=== PATIENT | female | born 1945 | race African-American/Black ===

== ENCOUNTER 2022-06-05 17:26 | Inpatient (IN) | payer OTHER ==
[2022-06-05] MEDS ORDERED: ALBUTEROL SO4 2.5/IPRATROPIUM 0.5 INH SOL 3 ML VIAL.NEB. NEB ONE (18:00)
[2022-06-05] MEDS ORDERED: DEXAMETHASONE SOD PHOSPHATE 10 MG/1 ML VIAL ONE (18:01)
[2022-06-05] MEDS ORDERED: NITROGLYCERIN 50MG/D5W 250ML 50 MG/250 ML ML IVPB SCH (19:00)
[2022-06-05 19:24] LABS: BASO % 0.9 % (0-2.0); EOS % 0.2 % (0-4.5); HEMATOCRIT 38.7 % (32.4-45.2); HEMOGLOBIN 12.3 GM/dL (10.7-15.3); LYMPH % 7.3 % (8-40); MCH 25.2 pg (25.7-33.7); MCHC 31.8 g/dl (32.0-36.0); MEAN CELL VOLUME 79.2 fl (80-96); MEAN PLT VOLUME 7.5 fl (7.5-11.1); NEUT % 89.6 % (42.8-82.8); PLATELET COUNT 298 10^3/uL (134-434); RBC 4.89 M/mm3 (3.60-5.2); WHITE BLOOD COUNT 6.5 K/mm3 (4.0-10.0)
[2022-06-05] MEDS ORDERED: NITROGLYCERIN 25MG/D5W 250ML 25 MG/250 ML ML IVPB ONE (19:27)
[2022-06-05 19:30] LABS: BLOOD UREA NITROGEN 35.8 mg/dL (7-18); CALCIUM 8.9 mg/dL (8.5-10.1); MAGNESIUM 2.5 mg/dL (1.8-2.4)
[2022-06-05 19:33] LABS: CREATININE 0.9 mg/dL (0.55-1.3)
[2022-06-05 19:35] LABS: BILIRUBIN,TOTAL 0.7 mg/dL (0.2-1); TOT PROT 6.1 g/dl (6.4-8.2)
[2022-06-05 19:59] LABS: N-TERMINAL BNP 38833.7 pg/ml (5-450)
[2022-06-05] MEDS ORDERED: FUROSEMIDE 40 MG/4 ML INJECTABLE VIAL IVPUSH ONE (20:17)
[2022-06-05] MEDS ORDERED: FUROSEMIDE 40 MG/4 ML INJECTABLE VIAL ONE (20:30)
[2022-06-05] MEDS ORDERED: NITROGLYCERIN 2% OINTMENT - 1GM PACKET TD ONE ×3 (21:35→21:40)
[2022-06-05] MEDS ORDERED: LABETALOL HCL 5 MG/1 ML (100MG/20 ML VIAL) IVPUSH ONE (21:36)
[2022-06-05] MEDS ORDERED: ASPIRIN 81 MG CHEWABLE TABLETS PO ONE (23:51)
[2022-06-06] MEDS ORDERED: ASPIRIN 81 MG CHEWABLE TABLETS ONE (00:12)
[2022-06-06] MEDS ORDERED: ENALAPRILAT DIHYDRATE 1.25 MG/1 ML VIAL IVPB ONE ×2 (00:53→03:00)
[2022-06-06] MEDS ORDERED: ENALAPRILAT DIHYDRATE 2.5 MG/2 ML VIAL IVPB ONE (01:47)
[2022-06-06] MEDS ORDERED: FUROSEMIDE 40 MG/4 ML INJECTABLE VIAL ONE ×2 (06:41→14:28)
[2022-06-06] MEDS: FUROSEMIDE 40 MG/4 ML INJECTABLE VIAL IVPUSH SCH ×2 (06:51→14:40)
[2022-06-06] MEDS ORDERED: NITROGLYCERIN 2% OINTMENT - 1GM PACKET TD ONE ×3 (07:08→13:15)
[2022-06-06] MEDS: NITROGLYCERIN 2% OINTMENT - 1GM PACKET TD SCH ×2 (07:13→13:26)
[2022-06-06 07:23] LABS: BASO % 0.3 % (0-2.0); HEMATOCRIT 35.9 % (32.4-45.2); HEMOGLOBIN 11.4 GM/dL (10.7-15.3); LYMPH % 7.7 % (8-40); MCH 25.1 pg (25.7-33.7); MCHC 31.9 g/dl (32.0-36.0); MEAN CELL VOLUME 78.9 fl (80-96); MEAN PLT VOLUME 7.8 fl (7.5-11.1); MONO % 4.2 % (3.8-10.2); NEUT % 87.8 % (42.8-82.8); PLATELET COUNT 265 10^3/uL (134-434); RBC 4.55 M/mm3 (3.60-5.2); RDW 16.1 % (11.6-15.6); WHITE BLOOD COUNT 4.8 K/mm3 (4.0-10.0)
[2022-06-06 07:40] LABS: CHLORIDE 109 mmol/L (98-107); SODIUM 144 mmol/L (136-145)
[2022-06-06 07:47] LABS: ALBUMIN 2.8 g/dl (3.4-5.0); ANION GAP 11 MMOL/L (8-16); BLOOD UREA NITROGEN 39.2 mg/dL (7-18); CALCIUM 8.8 mg/dL (8.5-10.1); CO2 24 mmol/L (21-32); GLUCOSE,RANDOM 136 mg/dL (74-106); MAGNESIUM 2.3 mg/dL (1.8-2.4)
[2022-06-06 07:49] LABS: TRIGLYCERIDES 68 mg/dL (0-150)
[2022-06-06 07:50] LABS: BILIRUBIN,TOTAL 0.6 mg/dL (0.2-1); LDL CHOLESTEROL (ONLY SJRH) 78 mg/dL (5-100); TOT PROT 5.7 g/dl (6.4-8.2)
[2022-06-06 07:51] LABS: CHOLESTEROL 144 mg/dL (50-200); CREATININE 0.8 mg/dL (0.55-1.3); HDL CHOLESTEROL 53 mg/dL (40-60); PHOSPHOROUS 4.3 mg/dL (2.5-4.9); SGOT/AST 15 U/L (15-37); SGPT/ALT 10 U/L (13-61)
[2022-06-06 07:54] LABS: ALK PHOS 66 U/L (45-117)
[2022-06-06 08:27] LABS: EPI CELLS >36 /uL (0-25.1); HYALINE CASTS 158 /uL (0-3.1); URINE APPEARANCE CLEAR; URINE BILIRUBIN NEGATIVE (NEGATIVE); URINE COLOR ORANGE; URINE GLUCOSE (UA) NEGATIVE (NEGATIVE); URINE KETONE TRACE (NEGATIVE); URINE LEUK ESTERASE NEGATIVE (NEGATIVE); URINE NITRITE NEGATIVE (NEGATIVE); URINE PROTEIN 3+ (NEGATIVE); URINE UROBILINOGEN 0.2 mg/dL (0.2-1.0); URINE WBC 55 /uL (0-25.8)
[2022-06-06] MEDS: ENALAPRILAT DIHYDRATE 1.25 MG/1 ML VIAL IVPB SCH ×2 (09:53→17:16)
[2022-06-06] MEDS ORDERED: ENOXAPARIN NA (PORCINE) 40 MG/0.4 ML DISP.SYRIN SQ ONE (09:54)
[2022-06-06] MEDS: ENOXAPARIN NA (PORCINE) 40 MG/0.4 ML DISP.SYRIN SQ SCH (09:57)
[2022-06-06 10:26] LABS: URINE BACTERIA 0.9 /uL (0-1359); URINE RBC 406.2 /uL (0-23.9)
[2022-06-06] MEDS: ASPIRIN COATED 81 MG TABLET.EC PO SCH (11:30)
[2022-06-06] MEDS ORDERED: NITROGLYCERIN 25MG/D5W 250ML 25 MG/250 ML ML IVPB SCH ×2 (12:30→14:37)
[2022-06-06] MEDS ORDERED: NITROGLYCERIN 25MG/D5W 250ML 25 MG/250 ML ML IVPB ONE (14:28)
[2022-06-06 16:16] VITALS: BMI 19.0
[2022-06-06] MEDS: CARVEDILOL 6.25 MG TABLET (FP) PO SCH ×2 (17:14→22:43)
[2022-06-06] MEDS: SPIRONOLACTONE 25 MG TABLET PO SCH (17:14)
[2022-06-06] MEDS ORDERED: NITROGLYCERIN 2% OINTMENT - 1GM PACKET TD SCH (18:00)
[2022-06-06] MEDS: FUROSEMIDE INJECTION 100 MG in DEXTROSE 5%-WATER - 40 ML IVPB SCH (18:17)
[2022-06-06] MEDS: hydrALAZINE HCL 25 MG TABLET (FP) PO SCH (22:43)
[2022-06-07] MEDS: hydrALAZINE HCL 25 MG TABLET (FP) PO SCH ×2 (06:50→14:11)
[2022-06-07 08:26] LABS: BASO % 0.3 % (0-2.0); EOS % 0.2 % (0-4.5); HEMATOCRIT 31.2 % (32.4-45.2); LYMPH % 9.4 % (8-40); MCH 25.2 pg (25.7-33.7); MCHC 32.1 g/dl (32.0-36.0); MEAN CELL VOLUME 78.5 fl (80-96); NEUT % 84.1 % (42.8-82.8); PLATELET COUNT 246 10^3/uL (134-434); RBC 3.98 M/mm3 (3.60-5.2); RDW 15.6 % (11.6-15.6); WHITE BLOOD COUNT 6.1 K/mm3 (4.0-10.0)
[2022-06-07 10:29] LABS: CALCIUM 8.2 mg/dL (8.5-10.1)
[2022-06-07] MEDS: SPIRONOLACTONE 25 MG TABLET PO SCH (10:29)
[2022-06-07] MEDS: CARVEDILOL 6.25 MG TABLET (FP) PO SCH ×2 (10:29→21:53)
[2022-06-07] MEDS: ENOXAPARIN NA (PORCINE) 40 MG/0.4 ML DISP.SYRIN SQ SCH (10:29)
[2022-06-07] MEDS: ISOSORBIDE MONONITRATE 30 MG TAB.SR.24H (FP) PO SCH (10:29)
[2022-06-07] MEDS: ASPIRIN COATED 81 MG TABLET.EC PO SCH (10:29)
[2022-06-07 10:30] LABS: ALBUMIN 2.5 g/dl (3.4-5.0); BLOOD UREA NITROGEN 37.4 mg/dL (7-18); MAGNESIUM 2.1 mg/dL (1.8-2.4)
[2022-06-07 10:32] LABS: TOT PROT 5.1 g/dl (6.4-8.2)
[2022-06-07 10:33] LABS: CREATININE 0.8 mg/dL (0.55-1.3)
[2022-06-07 10:36] LABS: BILIRUBIN,TOTAL 0.6 mg/dL (0.2-1)
[2022-06-07] MEDS: FUROSEMIDE INJECTION 100 MG in DEXTROSE 5%-WATER - 40 ML IVPB SCH (15:04)
[2022-06-07] MEDS: SACUBITRIL/VALSARTAN 24 MG-26 MG TABLET PO SCH (21:53)
[2022-06-07] MEDS: hydrALAZINE HCL 10 MG TABLET PO SCH (21:53)
[2022-06-08 00:29] LABS: EPI CELLS >36 /uL (0-25.1); HYALINE CASTS 52 /uL (0-3.1); URINE APPEARANCE TURBID; URINE BACTERIA 12 /uL (0-1359); URINE BILIRUBIN NEGATIVE (NEGATIVE); URINE COLOR YELLOW; URINE GLUCOSE (UA) NEGATIVE (NEGATIVE); URINE KETONE NEGATIVE (NEGATIVE); URINE LEUK ESTERASE 2+ (NEGATIVE); URINE NITRITE NEGATIVE (NEGATIVE); URINE PROTEIN TRACE (NEGATIVE); URINE WBC 115 /uL (0-25.8)
[2022-06-08] MEDS ORDERED: SIMETHICONE 80 MG TAB.CHEW (FP) PO PRN (03:32)
[2022-06-08] MEDS: hydrALAZINE HCL 10 MG TABLET PO SCH ×3 (05:48→21:28)
[2022-06-08] MEDS: FUROSEMIDE INJECTION 100 MG in DEXTROSE 5%-WATER - 40 ML IVPB SCH ×2 (06:20→18:43)
[2022-06-08 08:01] LABS: BASO % 0.3 % (0-2.0); EOS % 0.5 % (0-4.5); HEMATOCRIT 32.7 % (32.4-45.2); HEMOGLOBIN 10.7 GM/dL (10.7-15.3); LYMPH % 7.5 % (8-40); MCH 25.5 pg (25.7-33.7); MCHC 32.7 g/dl (32.0-36.0); MEAN CELL VOLUME 78.1 fl (80-96); MEAN PLT VOLUME 7.6 fl (7.5-11.1); MONO % 6.2 % (3.8-10.2); NEUT % 85.5 % (42.8-82.8); PLATELET COUNT 258 10^3/uL (134-434); RBC 4.19 M/mm3 (3.60-5.2); WHITE BLOOD COUNT 6.6 K/mm3 (4.0-10.0)
[2022-06-08 08:27] LABS: URINE RBC 83.8 /uL (0-23.9)
[2022-06-08 08:28] LABS: URINE CRYSTALS NEGATIVE /hpf
[2022-06-08 08:56] LABS: BLOOD UREA NITROGEN 38.4 mg/dL (7-18); CALCIUM 8.3 mg/dL (8.5-10.1)
[2022-06-08 08:58] LABS: ALBUMIN 2.6 g/dl (3.4-5.0)
[2022-06-08 09:00] LABS: BILIRUBIN,TOTAL 0.5 mg/dL (0.2-1); CREATININE 0.9 mg/dL (0.55-1.3); PHOSPHOROUS 3.7 mg/dL (2.5-4.9); TOT PROT 5.3 g/dl (6.4-8.2)
[2022-06-08] MEDS: SACUBITRIL/VALSARTAN 24 MG-26 MG TABLET PO SCH ×2 (09:19→21:28)
[2022-06-08] MEDS: CARVEDILOL 6.25 MG TABLET (FP) PO SCH ×2 (09:19→21:28)
[2022-06-08] MEDS: ISOSORBIDE MONONITRATE 30 MG TAB.SR.24H (FP) PO SCH (09:19)
[2022-06-08] MEDS: SPIRONOLACTONE 25 MG TABLET PO SCH (09:19)
[2022-06-08] MEDS: ASPIRIN COATED 81 MG TABLET.EC PO SCH (09:19)
[2022-06-08] MEDS: ENOXAPARIN NA (PORCINE) 40 MG/0.4 ML DISP.SYRIN SQ SCH (09:22)
[2022-06-09] MEDS: hydrALAZINE HCL 10 MG TABLET PO SCH ×3 (05:39→22:27)
[2022-06-09 07:09] LABS: BASO % 0.4 % (0-2.0); EOS % 0.5 % (0-4.5); HEMATOCRIT 33.6 % (32.4-45.2); HEMOGLOBIN 10.8 GM/dL (10.7-15.3); LYMPH % 11.4 % (8-40); MCH 25.2 pg (25.7-33.7); MCHC 32.2 g/dl (32.0-36.0); MEAN CELL VOLUME 78.3 fl (80-96); MEAN PLT VOLUME 7.6 fl (7.5-11.1); MONO % 7.9 % (3.8-10.2); NEUT % 79.8 % (42.8-82.8); PLATELET COUNT 251 10^3/uL (134-434); RBC 4.29 M/mm3 (3.60-5.2); RDW 15.8 % (11.6-15.6); WHITE BLOOD COUNT 6.1 K/mm3 (4.0-10.0)
[2022-06-09 07:38] LABS: ALBUMIN 2.3 g/dl (3.4-5.0); BLOOD UREA NITROGEN 34.2 mg/dL (7-18)
[2022-06-09 07:40] LABS: CALCIUM 7.7 mg/dL (8.5-10.1); CREATININE 0.9 mg/dL (0.55-1.3); MAGNESIUM 1.7 mg/dL (1.8-2.4); PHOSPHOROUS 3.4 mg/dL (2.5-4.9)
[2022-06-09 07:42] LABS: BILIRUBIN,TOTAL 0.5 mg/dL (0.2-1); TOT PROT 5.1 g/dl (6.4-8.2)
[2022-06-09] MEDS: FUROSEMIDE INJECTION 100 MG in DEXTROSE 5%-WATER - 40 ML IVPB SCH ×2 (07:57→18:28)
[2022-06-09] MEDS: ASPIRIN COATED 81 MG TABLET.EC PO SCH (09:44)
[2022-06-09] MEDS: SACUBITRIL/VALSARTAN 24 MG-26 MG TABLET PO SCH ×2 (09:44→22:26)
[2022-06-09] MEDS: ISOSORBIDE MONONITRATE 30 MG TAB.SR.24H (FP) PO SCH (09:44)
[2022-06-09] MEDS: SPIRONOLACTONE 25 MG TABLET PO SCH (09:44)
[2022-06-09] MEDS: CARVEDILOL 6.25 MG TABLET (FP) PO SCH ×2 (09:44→22:37)
[2022-06-09] MEDS: ENOXAPARIN NA (PORCINE) 40 MG/0.4 ML DISP.SYRIN SQ SCH (09:44)
[2022-06-09] MEDS ORDERED: MAGNESIUM 2GM/50ML STERILE WATER IVPB IVPB ONE (10:23)
[2022-06-09] MEDS: POTASSIUM CHLORIDE ORAL LIQUID 20 MEQ/15 ML PO SCH ×2 (13:40→22:29)
[2022-06-10] MEDS: hydrALAZINE HCL 10 MG TABLET PO SCH ×3 (07:18→22:03)
[2022-06-10] MEDS: FUROSEMIDE INJECTION 100 MG in DEXTROSE 5%-WATER - 40 ML IVPB SCH ×2 (08:45→21:57)
[2022-06-10] MEDS: SACUBITRIL/VALSARTAN 24 MG-26 MG TABLET PO SCH ×2 (09:34→21:56)
[2022-06-10] MEDS: SPIRONOLACTONE 25 MG TABLET PO SCH (09:34)
[2022-06-10] MEDS: CARVEDILOL 6.25 MG TABLET (FP) PO SCH (09:34)
[2022-06-10] MEDS: ISOSORBIDE MONONITRATE 30 MG TAB.SR.24H (FP) PO SCH (09:34)
[2022-06-10] MEDS: ASPIRIN COATED 81 MG TABLET.EC PO SCH (09:34)
[2022-06-10] MEDS: ENOXAPARIN NA (PORCINE) 40 MG/0.4 ML DISP.SYRIN SQ SCH (09:36)
[2022-06-10] MEDS: CARVEDILOL 3.125 MG TABLET (FP) PO SCH ×2 (09:53→21:56)
[2022-06-10 10:25] LABS: BASO % 0.4 % (0-2.0); EOS % 2.3 % (0-4.5); HEMATOCRIT 34.8 % (32.4-45.2); HEMOGLOBIN 10.9 GM/dL (10.7-15.3); LYMPH % 10.1 % (8-40); MCH 24.8 pg (25.7-33.7); MCHC 31.4 g/dl (32.0-36.0); MEAN PLT VOLUME 8.3 fl (7.5-11.1); MONO % 6.1 % (3.8-10.2); NEUT % 81.1 % (42.8-82.8); PLATELET COUNT 255 10^3/uL (134-434); RDW 16.3 % (11.6-15.6); WHITE BLOOD COUNT 5.6 K/mm3 (4.0-10.0)
[2022-06-10 10:59] LABS: CALCIUM 7.5 mg/dL (8.5-10.1)
[2022-06-10 11:00] LABS: ALBUMIN 2.4 g/dl (3.4-5.0)
[2022-06-10 11:03] LABS: PHOSPHOROUS 2.9 mg/dL (2.5-4.9)
[2022-06-10] MEDS: INSULIN SLIDING SCALE (NOVOLOG) 1 VIAL SQ SCH ×2 (11:03→17:02)
[2022-06-10 11:04] LABS: BILIRUBIN,TOTAL 0.3 mg/dL (0.2-1); TOT PROT 5.1 g/dl (6.4-8.2)
[2022-06-11] MEDS: FUROSEMIDE INJECTION 100 MG in DEXTROSE 5%-WATER - 40 ML IVPB SCH ×2 (06:41→16:46)
[2022-06-11] MEDS: hydrALAZINE HCL 10 MG TABLET PO SCH ×3 (06:42→21:52)
[2022-06-11] MEDS: INSULIN SLIDING SCALE (NOVOLOG) 1 VIAL SQ SCH ×5 (06:47→21:54)
[2022-06-11 08:52] LABS: BASO % 0.4 % (0-2.0); HEMATOCRIT 34.4 % (32.4-45.2); MCHC 31.9 g/dl (32.0-36.0); MEAN CELL VOLUME 78.4 fl (80-96); MEAN PLT VOLUME 7.8 fl (7.5-11.1); MONO % 6.5 % (3.8-10.2); NEUT % 79.1 % (42.8-82.8); PLATELET COUNT 270 10^3/uL (134-434); RBC 4.39 M/mm3 (3.60-5.2); RDW 15.8 % (11.6-15.6); WHITE BLOOD COUNT 5.8 K/mm3 (4.0-10.0)
[2022-06-11 09:14] LABS: CALCIUM 7.6 mg/dL (8.5-10.1)
[2022-06-11 09:15] LABS: ALBUMIN 2.3 g/dl (3.4-5.0); BLOOD UREA NITROGEN 33.6 mg/dL (7-18); MAGNESIUM 1.8 mg/dL (1.8-2.4)
[2022-06-11 09:18] LABS: PHOSPHOROUS 2.5 mg/dL (2.5-4.9)
[2022-06-11 09:19] LABS: BILIRUBIN,TOTAL 0.4 mg/dL (0.2-1); TOT PROT 5.1 g/dl (6.4-8.2)
[2022-06-11] MEDS: ISOSORBIDE MONONITRATE 30 MG TAB.SR.24H (FP) PO SCH (09:57)
[2022-06-11] MEDS: SACUBITRIL/VALSARTAN 24 MG-26 MG TABLET PO SCH ×2 (09:57→21:53)
[2022-06-11] MEDS: CARVEDILOL 3.125 MG TABLET (FP) PO SCH ×2 (09:57→21:52)
[2022-06-11] MEDS: SPIRONOLACTONE 25 MG TABLET PO SCH (09:57)
[2022-06-11] MEDS: ASPIRIN COATED 81 MG TABLET.EC PO SCH (09:57)
[2022-06-11] MEDS: ENOXAPARIN NA (PORCINE) 40 MG/0.4 ML DISP.SYRIN SQ SCH (09:57)
[2022-06-11] MEDS ORDERED: MAGNESIUM OXIDE 400 MG TABLET (FP) PO ONE ×2 (19:15→22:45)
[2022-06-11 19:47] LABS: URIC ACID 8.1 mg/dL (2.6-7.2)
[2022-06-11] MEDS: NAPH,MB-DB/K PH,MBDB POWDER PACKET PO SCH ×2 (21:48→23:06)
[2022-06-12] MEDS: FUROSEMIDE INJECTION 100 MG in DEXTROSE 5%-WATER - 40 ML IVPB SCH (03:47)
[2022-06-12] MEDS: hydrALAZINE HCL 10 MG TABLET PO SCH ×3 (06:08→21:33)
[2022-06-12] MEDS: INSULIN SLIDING SCALE (NOVOLOG) 1 VIAL SQ SCH ×3 (06:08→17:00)
[2022-06-12 08:23] LABS: BASO % 0.4 % (0-2.0); EOS % 3.1 % (0-4.5); LYMPH % 11.4 % (8-40); MCH 25.2 pg (25.7-33.7); MCHC 32.3 g/dl (32.0-36.0); MEAN CELL VOLUME 78.1 fl (80-96); MEAN PLT VOLUME 7.6 fl (7.5-11.1); MONO % 7.7 % (3.8-10.2); NEUT % 77.4 % (42.8-82.8); PLATELET COUNT 283 10^3/uL (134-434); RBC 4.36 M/mm3 (3.60-5.2); RDW 15.7 % (11.6-15.6); WHITE BLOOD COUNT 5.6 K/mm3 (4.0-10.0)
[2022-06-12 08:48] LABS: CALCIUM 7.9 mg/dL (8.5-10.1)
[2022-06-12 08:49] LABS: ALBUMIN 2.4 g/dl (3.4-5.0); BLOOD UREA NITROGEN 34.5 mg/dL (7-18); MAGNESIUM 1.9 mg/dL (1.8-2.4)
[2022-06-12 08:52] LABS: CREATININE 1.1 mg/dL (0.55-1.3); PHOSPHOROUS 2.3 mg/dL (2.5-4.9)
[2022-06-12 08:53] LABS: BILIRUBIN,TOTAL 0.3 mg/dL (0.2-1); TOT PROT 5.2 g/dl (6.4-8.2)
[2022-06-12 09:33] LABS: EPI CELLS 16 /uL (0-25.1); HYALINE CASTS 2 /uL (0-3.1); URINE APPEARANCE CLEAR; URINE BACTERIA 31 /uL (0-1359); URINE BILIRUBIN NEGATIVE (NEGATIVE); URINE COLOR YELLOW; URINE GLUCOSE (UA) NEGATIVE (NEGATIVE); URINE KETONE NEGATIVE (NEGATIVE); URINE LEUK ESTERASE 2+ (NEGATIVE); URINE NITRITE NEGATIVE (NEGATIVE); URINE PROTEIN NEGATIVE (NEGATIVE); URINE RBC 170 /uL (0-23.9); URINE WBC 41 /uL (0-25.8)
[2022-06-12] MEDS: SPIRONOLACTONE 25 MG TABLET PO SCH (11:14)
[2022-06-12] MEDS: SACUBITRIL/VALSARTAN 24 MG-26 MG TABLET PO SCH ×2 (11:14→21:33)
[2022-06-12] MEDS: CARVEDILOL 3.125 MG TABLET (FP) PO SCH ×2 (11:14→21:32)
[2022-06-12] MEDS: ENOXAPARIN NA (PORCINE) 40 MG/0.4 ML DISP.SYRIN SQ SCH (11:14)
[2022-06-12] MEDS: ISOSORBIDE MONONITRATE 30 MG TAB.SR.24H (FP) PO SCH (11:15)
[2022-06-12] MEDS: ASPIRIN COATED 81 MG TABLET.EC PO SCH (11:15)
[2022-06-12] MEDS ORDERED: FUROSEMIDE 40 MG TABLET (FP) PO SCH (16:00)
[2022-06-12 17:51] LABS: URIC ACID 8.1 mg/dL (2.6-7.2)
[2022-06-12] MEDS ORDERED: NAPH,MB-DB/K PH,MBDB POWDER PACKET PO ONE (17:54)
[2022-06-12] MEDS ORDERED: cefTRIAXone SODIUM 1 GM VIAL ONE (21:31)
[2022-06-12] MEDS ORDERED: DEXTROSE 5%-WATER - 50 ML IVPB ONE (21:31)
[2022-06-12] MEDS: CEFTRIAXONE 1 GM in DEXTROSE 5%-WATER - 50 ML IVPB SCH (21:32)
[2022-06-13] MEDS ORDERED: FUROSEMIDE 40 MG TABLET (FP) PO SCH (06:00)
[2022-06-13] MEDS: INSULIN SLIDING SCALE (NOVOLOG) 1 VIAL SQ SCH ×5 (06:34→22:48)
[2022-06-13] MEDS: hydrALAZINE HCL 10 MG TABLET PO SCH ×3 (06:35→22:49)
[2022-06-13 07:42] LABS: BASO % 0.8 % (0-2.0); EOS % 4.2 % (0-4.5); HEMOGLOBIN 10.6 GM/dL (10.7-15.3); LYMPH % 15.5 % (8-40); MCHC 32.2 g/dl (32.0-36.0); MEAN CELL VOLUME 77.8 fl (80-96); MEAN PLT VOLUME 7.8 fl (7.5-11.1); MONO % 8.2 % (3.8-10.2); NEUT % 71.3 % (42.8-82.8); PLATELET COUNT 280 10^3/uL (134-434); RBC 4.24 M/mm3 (3.60-5.2); RDW 15.6 % (11.6-15.6); WHITE BLOOD COUNT 4.9 K/mm3 (4.0-10.0)
[2022-06-13 08:30] LABS: ALBUMIN 2.2 g/dl (3.4-5.0); BLOOD UREA NITROGEN 40.6 mg/dL (7-18); CALCIUM 7.8 mg/dL (8.5-10.1); MAGNESIUM 1.9 mg/dL (1.8-2.4)
[2022-06-13 08:33] LABS: CREATININE 1.1 mg/dL (0.55-1.3); PHOSPHOROUS 2.4 mg/dL (2.5-4.9)
[2022-06-13 08:35] LABS: BILIRUBIN,TOTAL 0.3 mg/dL (0.2-1); TOT PROT 5.1 g/dl (6.4-8.2)
[2022-06-13] MEDS ORDERED: DEXTROSE 5%-WATER - 50 ML IVPB ONE (09:55)
[2022-06-13] MEDS ORDERED: cefTRIAXone SODIUM 1 GM VIAL ONE ×2 (09:55→09:56)
[2022-06-13] MEDS: CEFTRIAXONE 1 GM in DEXTROSE 5%-WATER - 50 ML IVPB SCH (10:21)
[2022-06-13] MEDS: ENOXAPARIN NA (PORCINE) 40 MG/0.4 ML DISP.SYRIN SQ SCH (10:25)
[2022-06-13] MEDS: ASPIRIN COATED 81 MG TABLET.EC PO SCH (10:25)
[2022-06-13] MEDS: ISOSORBIDE MONONITRATE 30 MG TAB.SR.24H (FP) PO SCH (10:26)
[2022-06-13] MEDS: SACUBITRIL/VALSARTAN 24 MG-26 MG TABLET PO SCH ×2 (10:26→22:49)
[2022-06-13] MEDS: CARVEDILOL 3.125 MG TABLET (FP) PO SCH (10:26)
[2022-06-13] MEDS: SPIRONOLACTONE 25 MG TABLET PO SCH (10:26)
[2022-06-13] MEDS ORDERED: NAPH,MB-DB/K PH,MBDB POWDER PACKET PO ONE (12:40)
[2022-06-13] MEDS ORDERED: CARVEDILOL 3.125 MG TABLET (FP) PO ONE (13:16)
[2022-06-13] MEDS: FUROSEMIDE 20 MG TABLET (FP) PO SCH (14:30)
[2022-06-13] MEDS: CARVEDILOL 6.25 MG TABLET (FP) PO SCH (22:49)
[2022-06-14] MEDS: hydrALAZINE HCL 10 MG TABLET PO SCH ×3 (06:20→22:15)
[2022-06-14] MEDS: FUROSEMIDE 20 MG TABLET (FP) PO SCH ×2 (06:20→15:18)
[2022-06-14] MEDS: INSULIN SLIDING SCALE (NOVOLOG) 1 VIAL SQ SCH ×4 (06:20→22:15)
[2022-06-14 07:15] LABS: BASO % 0.9 % (0-2.0); EOS % 3.5 % (0-4.5); HEMATOCRIT 32.6 % (32.4-45.2); HEMOGLOBIN 10.5 GM/dL (10.7-15.3); LYMPH % 16.1 % (8-40); MCH 25.2 pg (25.7-33.7); MCHC 32.2 g/dl (32.0-36.0); MEAN CELL VOLUME 78.1 fl (80-96); MEAN PLT VOLUME 7.7 fl (7.5-11.1); MONO % 8.9 % (3.8-10.2); NEUT % 70.6 % (42.8-82.8); PLATELET COUNT 284 10^3/uL (134-434); RBC 4.18 M/mm3 (3.60-5.2); RDW 15.8 % (11.6-15.6); WHITE BLOOD COUNT 4.8 K/mm3 (4.0-10.0)
[2022-06-14 07:43] LABS: CALCIUM 7.8 mg/dL (8.5-10.1)
[2022-06-14 07:44] LABS: ALBUMIN 2.2 g/dl (3.4-5.0); BLOOD UREA NITROGEN 43.9 mg/dL (7-18); MAGNESIUM 1.9 mg/dL (1.8-2.4)
[2022-06-14 07:47] LABS: PHOSPHOROUS 2.2 mg/dL (2.5-4.9)
[2022-06-14 07:48] LABS: BILIRUBIN,TOTAL 0.3 mg/dL (0.2-1)
[2022-06-14] MEDS ORDERED: DEXTROSE 5%-WATER - 50 ML IVPB ONE (09:26)
[2022-06-14] MEDS ORDERED: cefTRIAXone SODIUM 1 GM VIAL ONE (09:26)
[2022-06-14] MEDS: CEFTRIAXONE 1 GM in DEXTROSE 5%-WATER - 50 ML IVPB SCH (10:35)
[2022-06-14] MEDS: CARVEDILOL 6.25 MG TABLET (FP) PO SCH ×2 (10:36→22:15)
[2022-06-14] MEDS: ISOSORBIDE MONONITRATE 30 MG TAB.SR.24H (FP) PO SCH (10:36)
[2022-06-14] MEDS: ASPIRIN COATED 81 MG TABLET.EC PO SCH (10:36)
[2022-06-14] MEDS: SPIRONOLACTONE 25 MG TABLET PO SCH (10:36)
[2022-06-14] MEDS: SACUBITRIL/VALSARTAN 24 MG-26 MG TABLET PO SCH ×2 (10:36→22:15)
[2022-06-14] MEDS: ENOXAPARIN NA (PORCINE) 40 MG/0.4 ML DISP.SYRIN SQ SCH ×2 (10:38→11:50)
[2022-06-14] MEDS ORDERED: SODIUM PHOSPHATE - 30 MM in SODIUM CHLORIDE 500 ML IVPB ONE (14:05)
[2022-06-15] MEDS: INSULIN SLIDING SCALE (NOVOLOG) 1 VIAL SQ SCH ×4 (06:34→21:38)
[2022-06-15] MEDS: FUROSEMIDE 20 MG TABLET (FP) PO SCH (06:35)
[2022-06-15] MEDS: hydrALAZINE HCL 10 MG TABLET PO SCH ×3 (06:35→21:39)
[2022-06-15 07:08] LABS: BASO % 0.9 % (0-2.0); EOS % 2.8 % (0-4.5); LYMPH % 16.6 % (8-40); MCH 25.1 pg (25.7-33.7); MCHC 32.3 g/dl (32.0-36.0); MEAN CELL VOLUME 77.6 fl (80-96); MEAN PLT VOLUME 7.7 fl (7.5-11.1); MONO % 9.5 % (3.8-10.2); NEUT % 70.2 % (42.8-82.8); PLATELET COUNT 309 10^3/uL (134-434); RBC 3.99 M/mm3 (3.60-5.2); RDW 15.7 % (11.6-15.6); WHITE BLOOD COUNT 4.5 K/mm3 (4.0-10.0)
[2022-06-15 07:43] LABS: ALBUMIN 2.1 g/dl (3.4-5.0); BLOOD UREA NITROGEN 42.4 mg/dL (7-18); CALCIUM 7.5 mg/dL (8.5-10.1)
[2022-06-15 07:44] LABS: MAGNESIUM 1.9 mg/dL (1.8-2.4)
[2022-06-15 07:46] LABS: PHOSPHOROUS 3.9 mg/dL (2.5-4.9)
[2022-06-15 07:47] LABS: BILIRUBIN,TOTAL 0.2 mg/dL (0.2-1)
[2022-06-15 07:48] LABS: TOT PROT 4.8 g/dl (6.4-8.2)
[2022-06-15] MEDS ORDERED: DEXTROSE 5%-WATER - 50 ML IVPB ONE (09:46)
[2022-06-15] MEDS ORDERED: cefTRIAXone SODIUM 1 GM VIAL ONE (09:46)
[2022-06-15] MEDS: ISOSORBIDE MONONITRATE 30 MG TAB.SR.24H (FP) PO SCH (09:49)
[2022-06-15] MEDS: CARVEDILOL 6.25 MG TABLET (FP) PO SCH ×2 (09:49→21:39)
[2022-06-15] MEDS: ASPIRIN COATED 81 MG TABLET.EC PO SCH (09:49)
[2022-06-15] MEDS: SACUBITRIL/VALSARTAN 24 MG-26 MG TABLET PO SCH (09:49)
[2022-06-15] MEDS: SPIRONOLACTONE 25 MG TABLET PO SCH (09:49)
[2022-06-15] MEDS: ENOXAPARIN NA (PORCINE) 40 MG/0.4 ML DISP.SYRIN SQ SCH (09:50)
[2022-06-15] MEDS: CEFTRIAXONE 1 GM in DEXTROSE 5%-WATER - 50 ML IVPB SCH (09:50)
[2022-06-15 15:27] VITALS: TEMP 98.7
[2022-06-15 22:22] VITALS: BP 122/66; PULSE 80
== END 2022-06-15 21:00 | disposition short-term general hospital (02) | DRG 280 ==
LOC: JER 17:26 → JERBED 23:15 → J4W 06-06 16:39
PROVIDERS: ADMIT Hospitalist; ATTEND Internal Medicine
DX: I11.0 Hypertensive heart disease with heart failure (principal); I21.A1 Myocardial infarction type 2; I50.21 Acute systolic (congestive) heart failure; J96.01 Acute respiratory failure with hypoxia; E43 Unspecified severe protein-calorie malnutrition; R64 Cachexia; Z68.1 Body mass index [BMI] 19.9 or less, adult; I16.1 Hypertensive emergency; L89.152 Pressure ulcer of sacral region, stage 2; L89.322 Pressure ulcer of left buttock, stage 2; I27.20 Pulmonary hypertension, unspecified; E11.65 Type 2 diabetes mellitus with hyperglycemia; E87.70 Fluid overload, unspecified; I16.0 Hypertensive urgency
CPT/HCPCS: 0241U-QW; 36415; 71045-TC-FY; 72170-TC-FY; 73502-TC-LT-FY; 80053; 80061; 81003; 82962; 83036; 83735; 83880; 84100; 84443; 84484; 84550; 85025; 87086; 87186; 93005; 93010; 93306-TC; 93970-TC; 93971; 93971-TC; 94660; 97116-GP; 97162-GP; 99285-25; C9803-CS; U0003; U0005

== ENCOUNTER 2022-07-11 17:06 | Inpatient (IN) | payer OTHER ==
[2022-07-11 19:05] LABS: BASO % 1.3 % (0-2.0); HEMATOCRIT 23.6 % (32.4-45.2); HEMOGLOBIN 7.9 GM/dL (10.7-15.3); LYMPH % 11.1 % (8-40); MCH 25.7 pg (25.7-33.7); MCHC 33.5 g/dl (32.0-36.0); MEAN CELL VOLUME 76.7 fl (80-96); MEAN PLT VOLUME 6.5 fl (7.5-11.1); MONO % 6.5 % (3.8-10.2); NEUT % 78.1 % (42.8-82.8); PLATELET COUNT 317 10^3/uL (134-434); RBC 3.08 M/mm3 (3.60-5.2); RDW 16.6 % (11.6-15.6); WHITE BLOOD COUNT 4.7 K/mm3 (4.0-10.0)
[2022-07-11 19:12] LABS: INR 1.13 (0.83-1.09)
[2022-07-11 19:15] LABS: ACTIVATED PTT 30.9 SECONDS (25.2-36.5)
[2022-07-11 19:30] LABS: CALCIUM 7.9 mg/dL (8.5-10.1)
[2022-07-11 19:31] LABS: ALBUMIN 2.3 g/dl (3.4-5.0); BLOOD UREA NITROGEN 42.6 mg/dL (7-18); MAGNESIUM 2.2 mg/dL (1.8-2.4)
[2022-07-11 19:34] LABS: CREATININE 0.9 mg/dL (0.55-1.3)
[2022-07-11 19:35] LABS: TOT PROT 5.5 g/dl (6.4-8.2)
[2022-07-11 19:36] LABS: BILIRUBIN,TOTAL 0.3 mg/dL (0.2-1)
[2022-07-11 19:39] LABS: N-TERMINAL BNP 22703.8 pg/ml (5-450)
[2022-07-11] MEDS ORDERED: FUROSEMIDE 40 MG/4 ML INJECTABLE VIAL IVPUSH ONE (19:49)
[2022-07-11] MEDS ORDERED: FUROSEMIDE 40 MG/4 ML INJECTABLE VIAL ONE (20:09)
[2022-07-12] MEDS ORDERED: hydrALAZINE HCL 20 MG/ML VIAL ONE (06:10)
[2022-07-12] MEDS ORDERED: hydrALAZINE HCL 20 MG/ML VIAL IVPUSH ONE (06:21)
[2022-07-12] MEDS: hydrALAZINE HCL 25 MG TABLET (FP) PO SCH ×3 (06:21→21:11)
[2022-07-12] MEDS ORDERED: FUROSEMIDE 40 MG/4 ML INJECTABLE VIAL ONE ×2 (06:43→09:09)
[2022-07-12 06:47] LABS: HEMATOCRIT 22.4 % (32.4-45.2); HEMOGLOBIN 7.5 GM/dL (10.7-15.3); MCH 25.6 pg (25.7-33.7); MCHC 33.7 g/dl (32.0-36.0); MEAN PLT VOLUME 6.7 fl (7.5-11.1); PLATELET COUNT 303 10^3/uL (134-434); RBC 2.95 M/mm3 (3.60-5.2); RDW 16.7 % (11.6-15.6); WHITE BLOOD COUNT 4.3 K/mm3 (4.0-10.0)
[2022-07-12] MEDS: FUROSEMIDE 40 MG/4 ML INJECTABLE VIAL IVPUSH SCH ×2 (07:03→09:13)
[2022-07-12 07:10] LABS: CALCIUM 7.8 mg/dL (8.5-10.1)
[2022-07-12 07:11] LABS: ALBUMIN 2.3 g/dl (3.4-5.0); BLOOD UREA NITROGEN 35.7 mg/dL (7-18)
[2022-07-12 07:14] LABS: CREATININE 0.9 mg/dL (0.55-1.3)
[2022-07-12 07:15] LABS: BILIRUBIN,TOTAL 0.3 mg/dL (0.2-1); TOT PROT 5.6 g/dl (6.4-8.2)
[2022-07-12] MEDS: INSULIN SLIDING SCALE (NOVOLOG) 1 VIAL SQ SCH ×5 (07:25→21:21)
[2022-07-12] MEDS ORDERED: CLOPIDOGREL BISULFATE 75 MG TABLET (FP) ONE (09:08)
[2022-07-12] MEDS ORDERED: ASPIRIN COATED 81 MG TABLET.EC ONE (09:08)
[2022-07-12] MEDS ORDERED: CARVEDILOL 6.25 MG TABLET (FP) ONE ×2 (09:09→13:46)
[2022-07-12] MEDS ORDERED: ISOSORBIDE MONONITRATE 30 MG TAB.SR.24H (FP) PO ONE (09:09)
[2022-07-12] MEDS: ISOSORBIDE MONONITRATE 30 MG TAB.SR.24H (FP) PO SCH (09:13)
[2022-07-12] MEDS: CLOPIDOGREL BISULFATE 75 MG TABLET (FP) PO SCH (09:13)
[2022-07-12] MEDS ORDERED: CARVEDILOL 6.25 MG TABLET (FP) PO SCH (10:00)
[2022-07-12] MEDS ORDERED: ASPIRIN COATED 81 MG TABLET.EC PO SCH (10:00)
[2022-07-12] MEDS ORDERED: CARVEDILOL 6.25 MG TABLET (FP) PO ONE (12:01)
[2022-07-12] MEDS ORDERED: IRON SUCROSE INJECTION 100 MG in SODIUM CHLORIDE 95 ML IVPB ONE (13:00)
[2022-07-12] MEDS: CARVEDILOL 12.5 MG TABLET (FP) PO SCH (21:11)
[2022-07-12] MEDS: HEPARIN NA (PORCINE) 5,000 UNITS/ML 1ML VIAL SQ SCH (21:11)
[2022-07-12] MEDS: ATORVASTATIN CA 80 MG TABLET (FP) PO SCH (21:11)
[2022-07-12 21:33] LABS: EPI CELLS 2 /uL (0-25.1); HYALINE CASTS 1 /uL (0-3.1); URINE APPEARANCE CLEAR; URINE BACTERIA 2743 /uL (0-1359); URINE BILIRUBIN NEGATIVE (NEGATIVE); URINE COLOR YELLOW; URINE GLUCOSE (UA) NEGATIVE (NEGATIVE); URINE KETONE NEGATIVE (NEGATIVE); URINE LEUK ESTERASE 3+ (NEGATIVE); URINE NITRITE NEGATIVE (NEGATIVE); URINE PROTEIN 1+ (NEGATIVE); URINE RBC 80 /uL (0-23.9); URINE UROBILINOGEN 0.2 mg/dL (0.2-1.0); URINE WBC 455 /uL (0-25.8)
[2022-07-13] MEDS: INSULIN SLIDING SCALE (NOVOLOG) 1 VIAL SQ SCH ×4 (06:12→22:19)
[2022-07-13] MEDS: hydrALAZINE HCL 25 MG TABLET (FP) PO SCH ×3 (06:12→22:04)
[2022-07-13 08:27] LABS: BASO % 1.2 % (0-2.0); EOS % 2.9 % (0-4.5); HEMATOCRIT 20.9 % (32.4-45.2); HEMOGLOBIN 7.1 GM/dL (10.7-15.3); LYMPH % 11.4 % (8-40); MCH 25.7 pg (25.7-33.7); MCHC 33.7 g/dl (32.0-36.0); MEAN CELL VOLUME 76.3 fl (80-96); MEAN PLT VOLUME 6.9 fl (7.5-11.1); MONO % 7.1 % (3.8-10.2); NEUT % 77.4 % (42.8-82.8); PLATELET COUNT 289 10^3/uL (134-434); RBC 2.74 M/mm3 (3.60-5.2); RDW 16.8 % (11.6-15.6)
[2022-07-13] MEDS ORDERED: IRON SUCROSE INJECTION 200 MG in SODIUM CHLORIDE 90 ML IVPB ONE (08:49)
[2022-07-13 10:14] LABS: ALBUMIN 2.4 g/dl (3.4-5.0); BILIRUBIN,TOTAL 0.3 mg/dL (0.2-1); BLOOD UREA NITROGEN 46.1 mg/dL (7-18); CALCIUM 7.8 mg/dL (8.5-10.1); CREATININE 1.1 mg/dL (0.55-1.3); MAGNESIUM 2.1 mg/dL (1.8-2.4); TOT PROT 5.3 g/dl (6.4-8.2)
[2022-07-13] MEDS: HEPARIN NA (PORCINE) 5,000 UNITS/ML 1ML VIAL SQ SCH ×2 (10:40→22:05)
[2022-07-13] MEDS: PANTOPRAZOLE 40 MG TABLET PO SCH (10:40)
[2022-07-13] MEDS: ISOSORBIDE MONONITRATE 30 MG TAB.SR.24H (FP) PO SCH (10:40)
[2022-07-13] MEDS: CLOPIDOGREL BISULFATE 75 MG TABLET (FP) PO SCH (10:40)
[2022-07-13] MEDS: FUROSEMIDE 40 MG/4 ML INJECTABLE VIAL IVPUSH SCH (10:40)
[2022-07-13] MEDS: CARVEDILOL 12.5 MG TABLET (FP) PO SCH ×2 (10:40→22:04)
[2022-07-13] MEDS: ASPIRIN 81 MG CHEWABLE TABLETS PO SCH (10:40)
[2022-07-13] MEDS: CEFTRIAXONE 1 GM in DEXTROSE 5%-WATER - 50 ML IVPB SCH (12:38)
[2022-07-13] MEDS: ATORVASTATIN CA 80 MG TABLET (FP) PO SCH (22:04)
[2022-07-14] MEDS: hydrALAZINE HCL 25 MG TABLET (FP) PO SCH ×4 (05:48→23:58)
[2022-07-14] MEDS: INSULIN SLIDING SCALE (NOVOLOG) 1 VIAL SQ SCH ×4 (06:18→23:08)
[2022-07-14] MEDS ORDERED: IRON SUCROSE INJECTION 200 MG in SODIUM CHLORIDE 90 ML IVPB ONE (07:47)
[2022-07-14 08:21] LABS: BASO % 1.2 % (0-2.0); EOS % 2.6 % (0-4.5); HEMATOCRIT 23.9 % (32.4-45.2); HEMOGLOBIN 7.8 GM/dL (10.7-15.3); LYMPH % 10.4 % (8-40); MCH 25.2 pg (25.7-33.7); MCHC 32.6 g/dl (32.0-36.0); MEAN CELL VOLUME 77.2 fl (80-96); MEAN PLT VOLUME 7.3 fl (7.5-11.1); MONO % 5.8 % (3.8-10.2); PLATELET COUNT 299 10^3/uL (134-434); RDW 17.1 % (11.6-15.6); WHITE BLOOD COUNT 6.2 K/mm3 (4.0-10.0)
[2022-07-14 08:37] LABS: CALCIUM 8.1 mg/dL (8.5-10.1)
[2022-07-14 08:38] LABS: ALBUMIN 2.5 g/dl (3.4-5.0); BLOOD UREA NITROGEN 50.3 mg/dL (7-18); MAGNESIUM 2.2 mg/dL (1.8-2.4)
[2022-07-14 08:41] LABS: CREATININE 1.1 mg/dL (0.55-1.3)
[2022-07-14 08:43] LABS: BILIRUBIN,TOTAL 0.2 mg/dL (0.2-1); TOT PROT 5.7 g/dl (6.4-8.2)
[2022-07-14] MEDS ORDERED: SODIUM ZIRCONIUM CYCLOSILICATE (LOKELMA) 5 GM PACKET PO SCH (10:00)
[2022-07-14] MEDS: CLOPIDOGREL BISULFATE 75 MG TABLET (FP) PO SCH (11:01)
[2022-07-14] MEDS: CEFTRIAXONE 1 GM in DEXTROSE 5%-WATER - 50 ML IVPB SCH (11:01)
[2022-07-14] MEDS: HEPARIN NA (PORCINE) 5,000 UNITS/ML 1ML VIAL SQ SCH ×3 (11:02→23:59)
[2022-07-14] MEDS: PANTOPRAZOLE 40 MG TABLET PO SCH (11:02)
[2022-07-14] MEDS: CARVEDILOL 12.5 MG TABLET (FP) PO SCH ×3 (11:02→23:59)
[2022-07-14] MEDS: ASPIRIN 81 MG CHEWABLE TABLETS PO SCH (11:02)
[2022-07-14] MEDS: FUROSEMIDE 40 MG/4 ML INJECTABLE VIAL IVPUSH SCH (11:03)
[2022-07-14] MEDS: ISOSORBIDE DINITRATE 20 MG TABLET PO SCH ×2 (11:05→16:00)
[2022-07-14] MEDS ORDERED: ONDANSETRON 4 MG/2 ML VIAL IVPUSH ONE (19:37)
[2022-07-14] MEDS: ATORVASTATIN CA 80 MG TABLET (FP) PO SCH ×2 (23:08→23:59)
[2022-07-14] MEDS: SODIUM ZIRCONIUM CYCLOSILICATE (LOKELMA) 5 GM PACKET PO SCH (23:58)
[2022-07-15] MEDS: INSULIN SLIDING SCALE (NOVOLOG) 1 VIAL SQ SCH ×5 (00:02→21:54)
[2022-07-15] MEDS: hydrALAZINE HCL 25 MG TABLET (FP) PO SCH ×3 (06:27→21:54)
[2022-07-15] MEDS: AMINO ACIDS/PROTEIN HYDROLYS 30 ML LIQUID.PKT PO SCH ×2 (09:18→09:35)
[2022-07-15] MEDS: SODIUM ZIRCONIUM CYCLOSILICATE (LOKELMA) 5 GM PACKET PO SCH (09:18)
[2022-07-15] MEDS: HEPARIN NA (PORCINE) 5,000 UNITS/ML 1ML VIAL SQ SCH ×2 (09:19→21:53)
[2022-07-15] MEDS: CARVEDILOL 12.5 MG TABLET (FP) PO SCH ×2 (09:19→21:53)
[2022-07-15] MEDS: ISOSORBIDE DINITRATE 20 MG TABLET PO SCH ×2 (09:19→14:09)
[2022-07-15 09:34] LABS: BASO % 1.8 % (0-2.0); EOS % 2.2 % (0-4.5); HEMATOCRIT 23.9 % (32.4-45.2); HEMOGLOBIN 7.7 GM/dL (10.7-15.3); MCH 25.3 pg (25.7-33.7); MCHC 32.2 g/dl (32.0-36.0); MEAN CELL VOLUME 78.6 fl (80-96); MEAN PLT VOLUME 7.1 fl (7.5-11.1); MONO % 7.5 % (3.8-10.2); NEUT % 76.5 % (42.8-82.8); PLATELET COUNT 283 10^3/uL (134-434); RBC 3.04 M/mm3 (3.60-5.2); RDW 17.4 % (11.6-15.6); WHITE BLOOD COUNT 4.3 K/mm3 (4.0-10.0)
[2022-07-15] MEDS: FUROSEMIDE 40 MG/4 ML INJECTABLE VIAL IVPUSH SCH (09:36)
[2022-07-15] MEDS: CLOPIDOGREL BISULFATE 75 MG TABLET (FP) PO SCH (09:36)
[2022-07-15] MEDS: CEFTRIAXONE 1 GM in DEXTROSE 5%-WATER - 50 ML IVPB SCH (09:37)
[2022-07-15] MEDS: ASPIRIN 81 MG CHEWABLE TABLETS PO SCH (09:37)
[2022-07-15] MEDS: PANTOPRAZOLE 40 MG TABLET PO SCH (09:37)
[2022-07-15 09:48] LABS: CALCIUM 8.2 mg/dL (8.5-10.1)
[2022-07-15 09:49] LABS: ALBUMIN 2.5 g/dl (3.4-5.0); BLOOD UREA NITROGEN 48.1 mg/dL (7-18); MAGNESIUM 2.2 mg/dL (1.8-2.4)
[2022-07-15 09:52] LABS: CREATININE 1.1 mg/dL (0.55-1.3)
[2022-07-15 09:53] LABS: TOT PROT 5.8 g/dl (6.4-8.2)
[2022-07-15 09:54] LABS: BILIRUBIN,TOTAL 0.3 mg/dL (0.2-1)
[2022-07-15] MEDS ORDERED: IRON SUCROSE INJECTION 200 MG in SODIUM CHLORIDE 90 ML IVPB ONE (12:00)
[2022-07-15] MEDS: ATORVASTATIN CA 80 MG TABLET (FP) PO SCH (21:53)
[2022-07-16] MEDS: hydrALAZINE HCL 25 MG TABLET (FP) PO SCH ×3 (05:48→22:57)
[2022-07-16] MEDS: INSULIN SLIDING SCALE (NOVOLOG) 1 VIAL SQ SCH ×4 (06:25→23:08)
[2022-07-16 08:35] LABS: EOS % 2.2 % (0-4.5); HEMATOCRIT 21.9 % (32.4-45.2); HEMOGLOBIN 7.3 GM/dL (10.7-15.3); LYMPH % 8.7 % (8-40); MCH 25.6 pg (25.7-33.7); MCHC 33.2 g/dl (32.0-36.0); MEAN CELL VOLUME 77.2 fl (80-96); MEAN PLT VOLUME 7.3 fl (7.5-11.1); MONO % 7.9 % (3.8-10.2); NEUT % 80.2 % (42.8-82.8); PLATELET COUNT 278 10^3/uL (134-434); RBC 2.83 M/mm3 (3.60-5.2); RDW 17.1 % (11.6-15.6); WHITE BLOOD COUNT 4.8 K/mm3 (4.0-10.0)
[2022-07-16 08:52] LABS: ALBUMIN 2.5 g/dl (3.4-5.0); BLOOD UREA NITROGEN 45.6 mg/dL (7-18); CALCIUM 7.9 mg/dL (8.5-10.1)
[2022-07-16 08:53] LABS: MAGNESIUM 2.2 mg/dL (1.8-2.4)
[2022-07-16 08:57] LABS: BILIRUBIN,TOTAL 0.4 mg/dL (0.2-1); TOT PROT 5.6 g/dl (6.4-8.2)
[2022-07-16] MEDS: CEFTRIAXONE 1 GM in DEXTROSE 5%-WATER - 50 ML IVPB SCH (10:39)
[2022-07-16] MEDS: ISOSORBIDE DINITRATE 20 MG TABLET PO SCH ×2 (10:39→14:04)
[2022-07-16] MEDS: ASPIRIN 81 MG CHEWABLE TABLETS PO SCH (10:40)
[2022-07-16] MEDS: CARVEDILOL 12.5 MG TABLET (FP) PO SCH ×2 (10:40→22:57)
[2022-07-16] MEDS: CLOPIDOGREL BISULFATE 75 MG TABLET (FP) PO SCH (10:40)
[2022-07-16] MEDS: PANTOPRAZOLE 40 MG TABLET PO SCH (10:40)
[2022-07-16] MEDS: AMINO ACIDS/PROTEIN HYDROLYS 30 ML LIQUID.PKT PO SCH ×2 (10:41→17:29)
[2022-07-16] MEDS: HEPARIN NA (PORCINE) 5,000 UNITS/ML 1ML VIAL SQ SCH ×2 (10:41→22:57)
[2022-07-16] MEDS: FUROSEMIDE 40 MG/4 ML INJECTABLE VIAL IVPUSH SCH (10:41)
[2022-07-16] MEDS ORDERED: IRON SUCROSE INJECTION 200 MG in SODIUM CHLORIDE 90 ML IVPB ONE (12:58)
[2022-07-16] MEDS ORDERED: FUROSEMIDE 40 MG/4 ML INJECTABLE VIAL IVPUSH ONE (13:09)
[2022-07-16] MEDS: ATORVASTATIN CA 80 MG TABLET (FP) PO SCH (22:57)
[2022-07-17] MEDS: hydrALAZINE HCL 25 MG TABLET (FP) PO SCH ×3 (06:17→21:42)
[2022-07-17] MEDS: INSULIN SLIDING SCALE (NOVOLOG) 1 VIAL SQ SCH ×4 (06:38→21:45)
[2022-07-17] MEDS: AMINO ACIDS/PROTEIN HYDROLYS 30 ML LIQUID.PKT PO SCH (08:42)
[2022-07-17] MEDS: ISOSORBIDE DINITRATE 20 MG TABLET PO SCH ×2 (08:42→14:14)
[2022-07-17] MEDS: CARVEDILOL 12.5 MG TABLET (FP) PO SCH ×2 (10:07→21:42)
[2022-07-17] MEDS: CLOPIDOGREL BISULFATE 75 MG TABLET (FP) PO SCH (10:07)
[2022-07-17] MEDS: FUROSEMIDE 40 MG/4 ML INJECTABLE VIAL IVPUSH SCH (10:07)
[2022-07-17] MEDS: HEPARIN NA (PORCINE) 5,000 UNITS/ML 1ML VIAL SQ SCH ×2 (10:07→21:42)
[2022-07-17] MEDS: ASPIRIN 81 MG CHEWABLE TABLETS PO SCH (10:07)
[2022-07-17] MEDS: PANTOPRAZOLE 40 MG TABLET PO SCH (10:08)
[2022-07-17] MEDS: CEFTRIAXONE 1 GM in DEXTROSE 5%-WATER - 50 ML IVPB SCH (10:28)
[2022-07-17 10:33] LABS: BASO % 1.2 % (0-2.0); EOS % 2.1 % (0-4.5); HEMATOCRIT 22.1 % (32.4-45.2); LYMPH % 9.2 % (8-40); MCH 25.3 pg (25.7-33.7); MCHC 31.9 g/dl (32.0-36.0); MEAN CELL VOLUME 79.3 fl (80-96); MEAN PLT VOLUME 7.3 fl (7.5-11.1); MONO % 7.6 % (3.8-10.2); NEUT % 79.9 % (42.8-82.8); PLATELET COUNT 268 10^3/uL (134-434); RBC 2.78 M/mm3 (3.60-5.2); RDW 17.6 % (11.6-15.6); WHITE BLOOD COUNT 4.7 K/mm3 (4.0-10.0)
[2022-07-17 10:39] LABS: CALCIUM 7.9 mg/dL (8.5-10.1)
[2022-07-17 10:40] LABS: MAGNESIUM 2.1 mg/dL (1.8-2.4)
[2022-07-17 10:42] LABS: ALBUMIN 2.4 g/dl (3.4-5.0)
[2022-07-17 10:44] LABS: BILIRUBIN,TOTAL 0.2 mg/dL (0.2-1); TOT PROT 5.4 g/dl (6.4-8.2)
[2022-07-17 15:00] VITALS: BMI 22.3
[2022-07-17] MEDS: ATORVASTATIN CA 80 MG TABLET (FP) PO SCH (21:42)
[2022-07-18] MEDS ORDERED: hydrALAZINE HCL 20 MG/ML VIAL IVPB ONE ×2 (03:40→04:26)
[2022-07-18] MEDS: hydrALAZINE HCL 25 MG TABLET (FP) PO SCH (05:08)
[2022-07-18] MEDS: INSULIN SLIDING SCALE (NOVOLOG) 1 VIAL SQ SCH ×3 (06:16→16:43)
[2022-07-18] MEDS ORDERED: hydrALAZINE HCL 50 MG TABLET (FP) PO SCH (09:20)
[2022-07-18 09:41] LABS: BASO % 1.1 % (0-2.0); EOS % 1.6 % (0-4.5); HEMOGLOBIN 8.3 GM/dL (10.7-15.3); LYMPH % 8.7 % (8-40); MCH 26.9 pg (25.7-33.7); MCHC 33.4 g/dl (32.0-36.0); MEAN CELL VOLUME 80.4 fl (80-96); MEAN PLT VOLUME 7.2 fl (7.5-11.1); MONO % 8.1 % (3.8-10.2); NEUT % 80.5 % (42.8-82.8); PLATELET COUNT 261 10^3/uL (134-434); RDW 17.8 % (11.6-15.6); WHITE BLOOD COUNT 5.9 K/mm3 (4.0-10.0)
[2022-07-18] MEDS ORDERED: MULTIVITAMINS (DAILY MVI) TABLET (FP) PO SCH (10:00)
[2022-07-18] MEDS ORDERED: CEPHALEXIN 250 MG/5 ML ORAL SUSPENSION PO SCH (10:00)
[2022-07-18] MEDS ORDERED: FUROSEMIDE 40 MG TABLET (FP) PO SCH (10:00)
[2022-07-18 10:10] LABS: BILIRUBIN,TOTAL 0.4 mg/dL (0.2-1); CREATININE 0.9 mg/dL (0.55-1.3)
[2022-07-18 10:11] LABS: TOT PROT 5.4 g/dl (6.4-8.2)
[2022-07-18 10:12] LABS: ALBUMIN 2.5 g/dl (3.4-5.0)
[2022-07-18 10:15] LABS: BLOOD UREA NITROGEN 42.3 mg/dL (7-18); CALCIUM 7.9 mg/dL (8.5-10.1); MAGNESIUM 2.2 mg/dL (1.8-2.4)
[2022-07-18] MEDS ORDERED: CEPHALEXIN MONOHYDRATE 500 MG CAPSULE (UD) PO SCH (10:15)
[2022-07-18] MEDS: AMINO ACIDS/PROTEIN HYDROLYS 30 ML LIQUID.PKT PO SCH ×2 (10:50→11:11)
[2022-07-18] MEDS: CLOPIDOGREL BISULFATE 75 MG TABLET (FP) PO SCH (10:50)
[2022-07-18] MEDS: PANTOPRAZOLE 40 MG TABLET PO SCH (10:50)
[2022-07-18] MEDS: CARVEDILOL 12.5 MG TABLET (FP) PO SCH (10:50)
[2022-07-18] MEDS: ISOSORBIDE DINITRATE 20 MG TABLET PO SCH ×2 (10:54→14:41)
[2022-07-18] MEDS: ASPIRIN 81 MG CHEWABLE TABLETS PO SCH (10:54)
[2022-07-18] MEDS: HEPARIN NA (PORCINE) 5,000 UNITS/ML 1ML VIAL SQ SCH (10:58)
[2022-07-18] MEDS: CEFTRIAXONE 1 GM in DEXTROSE 5%-WATER - 50 ML IVPB SCH (11:15)
[2022-07-18 19:50] VITALS: BP 156/66; PULSE 58; RESP 18; TEMP 98.4
== END 2022-07-18 19:45 | disposition home health service (06) | DRG 291 ==
LOC: JER 17:06 → JERBED 20:28 → J4W 07-12 16:48 → J7W 07-14 21:10
PROVIDERS: ADMIT Internal Medicine; ATTEND Nurse Practitioner Acute Care
PROC: 30233N1 Transfusion of Nonautologous Red Blood Cells into Peripheral Vein, Percutaneous Approach (ICD-10-PCS; principal; 2022-07-17)
DX: I11.0 Hypertensive heart disease with heart failure (principal); E43 Unspecified severe protein-calorie malnutrition; I50.23 Acute on chronic systolic (congestive) heart failure; J90 Pleural effusion, not elsewhere classified; J98.11 Atelectasis; Z68.1 Body mass index [BMI] 19.9 or less, adult; N39.0 Urinary tract infection, site not specified; I25.10 Atherosclerotic heart disease of native coronary artery without angina pectoris; D50.9 Iron deficiency anemia, unspecified; R73.03 Prediabetes; I27.20 Pulmonary hypertension, unspecified; Z95.5 Presence of coronary angioplasty implant and graft; E87.5 Hyperkalemia; B95.2 Enterococcus as the cause of diseases classified elsewhere
CPT/HCPCS: 36415; 36430; 71045-TC-FY; 71046-TC-FY; 80053; 81003; 82272; 82607; 82728; 82746; 82962; 83036; 83540; 83550; 83615; 83735; 83880; 84100; 84484; 85025; 85027; 85045; 85610; 85730; 86850; 86900; 86901; 86922; 87077; 87086; 87186; 93005; 93010; 93306-TC; 93971; 94010; 94761; 97116-GP; 97162-GP; 99285-25; C9803-CS; J1644; J1756; P9058; U0003; U0005

== ENCOUNTER 2022-08-20 12:03 | Inpatient (IN) | payer OTHER ==
[2022-08-20 12:20] VITALS: BMI 18.2
[2022-08-20 13:44] LABS: BASO % 0.7 % (0-2.0); EOS % 6.6 % (0-4.5); HEMATOCRIT 27.3 % (32.4-45.2); LYMPH % 7.4 % (8-40); MCH 27.8 pg (25.7-33.7); MEAN CELL VOLUME 84.2 fl (80-96); MEAN PLT VOLUME 7.2 fl (7.5-11.1); MONO % 5.2 % (3.8-10.2); NEUT % 80.1 % (42.8-82.8); PLATELET COUNT 246 10^3/uL (134-434); RBC 3.24 M/mm3 (3.60-5.2); RDW 20.2 % (11.6-15.6); WHITE BLOOD COUNT 6.1 K/mm3 (4.0-10.0)
[2022-08-20 14:02] LABS: CHLORIDE 114 mmol/L (98-107); SODIUM 146 mmol/L (136-145)
[2022-08-20 14:04] LABS: CALCIUM 8.4 mg/dL (8.5-10.1)
[2022-08-20 14:05] LABS: ALBUMIN 2.7 g/dl (3.4-5.0); ANION GAP 6 MMOL/L (8-16); BLOOD UREA NITROGEN 39.8 mg/dL (7-18); CO2 27 mmol/L (21-32); GLUCOSE,RANDOM 136 mg/dL (74-106)
[2022-08-20 14:08] LABS: SGOT/AST 39 U/L (15-37); SGPT/ALT 55 U/L (13-61)
[2022-08-20 14:10] LABS: BILIRUBIN,TOTAL 0.3 mg/dL (0.2-1); TOT PROT 5.9 g/dl (6.4-8.2)
[2022-08-20] MEDS ORDERED: FUROSEMIDE 40 MG/4 ML INJECTABLE VIAL IVPUSH ONE (14:10)
[2022-08-20 14:11] LABS: ALK PHOS 132 U/L (45-117)
[2022-08-20 14:13] LABS: N-TERMINAL BNP 21446.9 pg/ml (5-450)
[2022-08-20] MEDS ORDERED: hydrALAZINE HCL 25 MG TABLET (FP) ONE ×2 (14:15→22:11)
[2022-08-20] MEDS ORDERED: FUROSEMIDE 40 MG/4 ML INJECTABLE VIAL ONE ×3 (14:15→22:11)
[2022-08-20] MEDS: hydrALAZINE HCL 25 MG TABLET (FP) PO SCH ×2 (14:21→22:20)
[2022-08-20] MEDS ORDERED: FUROSEMIDE 100 MG/10 ML INJECTABLE VIAL IVPB ONE (14:46)
[2022-08-20] MEDS ORDERED: ACETAMINOPHEN 325 MG TABLET (FP) PO PRN (14:46)
[2022-08-20 15:13] LABS: VENOUS BASE EXCESS 0.9 mmol/L (-2-2); VENOUS O2 SATURATION 93.6 % (70-80); VENOUS PCO2 42.1 mmHg (38-52); VENOUS PH 7.405 (7.310-7.410)
[2022-08-20] MEDS ORDERED: CARVEDILOL 12.5 MG TABLET (FP) ONE ×2 (16:03→22:11)
[2022-08-20] MEDS: CARVEDILOL 12.5 MG TABLET (FP) PO SCH ×2 (16:06→22:20)
[2022-08-20] MEDS: FUROSEMIDE 40 MG/4 ML INJECTABLE VIAL IVPUSH SCH (22:21)
[2022-08-20] MEDS: ATORVASTATIN CA 80 MG TABLET (FP) PO SCH (22:21)
[2022-08-21] MEDS ORDERED: hydrALAZINE HCL 25 MG TABLET (FP) ONE ×2 (06:15→14:32)
[2022-08-21] MEDS: hydrALAZINE HCL 25 MG TABLET (FP) PO SCH ×3 (06:22→22:10)
[2022-08-21] MEDS ORDERED: FERROUS SO4 325 MG TABLET (FP) ONE ×2 (07:48→14:33)
[2022-08-21 09:48] LABS: BASO % 0.7 % (0-2.0); EOS % 9.2 % (0-4.5); HEMATOCRIT 27.9 % (32.4-45.2); HEMOGLOBIN 9.4 GM/dL (10.7-15.3); LYMPH % 8.9 % (8-40); MCH 28.2 pg (25.7-33.7); MCHC 33.6 g/dl (32.0-36.0); MEAN CELL VOLUME 83.9 fl (80-96); MEAN PLT VOLUME 7.4 fl (7.5-11.1); MONO % 6.8 % (3.8-10.2); NEUT % 74.4 % (42.8-82.8); PLATELET COUNT 249 10^3/uL (134-434); RBC 3.32 M/mm3 (3.60-5.2); WHITE BLOOD COUNT 5.9 K/mm3 (4.0-10.0)
[2022-08-21 09:52] LABS: INR 1.2 (0.83-1.09); PROTHROMBIN TIME (PATIENT) 13.8 SEC (9.7-13.0)
[2022-08-21 09:53] LABS: ACTIVATED PTT 32.4 SECONDS (25.2-36.5)
[2022-08-21 10:11] LABS: BLOOD UREA NITROGEN 39.3 mg/dL (7-18); CALCIUM 8.5 mg/dL (8.5-10.1)
[2022-08-21 10:12] LABS: ALBUMIN 2.8 g/dl (3.4-5.0); MAGNESIUM 2.2 mg/dL (1.8-2.4)
[2022-08-21 10:15] LABS: PHOSPHOROUS 3.6 mg/dL (2.5-4.9)
[2022-08-21 10:16] LABS: BILIRUBIN,TOTAL 0.7 mg/dL (0.2-1)
[2022-08-21 10:18] LABS: TOT PROT 5.9 g/dl (6.4-8.2)
[2022-08-21] MEDS ORDERED: CARVEDILOL 12.5 MG TABLET (FP) ONE (14:31)
[2022-08-21] MEDS ORDERED: DOCUSATE SODIUM 100 MG CAPSULE (FP) PO ONE (14:32)
[2022-08-21] MEDS ORDERED: ASPIRIN 81 MG CHEWABLE TABLETS ONE (14:32)
[2022-08-21] MEDS ORDERED: CLOPIDOGREL BISULFATE 75 MG TABLET (FP) ONE (14:32)
[2022-08-21] MEDS ORDERED: FUROSEMIDE 40 MG/4 ML INJECTABLE VIAL ONE (14:33)
[2022-08-21] MEDS ORDERED: ENOXAPARIN NA (PORCINE) 40 MG/0.4 ML DISP.SYRIN SQ ONE (14:33)
[2022-08-21] MEDS: FERROUS SO4 325 MG TABLET (FP) PO SCH (17:18)
[2022-08-21] MEDS: ASPIRIN 81 MG CHEWABLE TABLETS PO SCH (17:18)
[2022-08-21] MEDS: DOCUSATE SODIUM 100 MG CAPSULE (FP) PO SCH (17:19)
[2022-08-21] MEDS: CARVEDILOL 12.5 MG TABLET (FP) PO SCH ×2 (17:19→22:11)
[2022-08-21] MEDS: FUROSEMIDE 40 MG/4 ML INJECTABLE VIAL IVPUSH SCH ×2 (18:00→22:10)
[2022-08-21] MEDS: ATORVASTATIN CA 80 MG TABLET (FP) PO SCH (22:11)
[2022-08-22] MEDS: FERROUS SO4 325 MG TABLET (FP) PO SCH ×2 (06:02→06:05)
[2022-08-22] MEDS: hydrALAZINE HCL 25 MG TABLET (FP) PO SCH ×3 (06:02→22:17)
[2022-08-22] MEDS: AMINO ACIDS/PROTEIN HYDROLYS 30 ML LIQUID.PKT PO SCH ×2 (08:00→18:24)
[2022-08-22 08:55] LABS: BASO % 0.8 % (0-2.0); EOS % 8.5 % (0-4.5); HEMATOCRIT 27.9 % (32.4-45.2); HEMOGLOBIN 9.1 GM/dL (10.7-15.3); LYMPH % 8.5 % (8-40); MCH 27.2 pg (25.7-33.7); MCHC 32.6 g/dl (32.0-36.0); MEAN CELL VOLUME 83.4 fl (80-96); MEAN PLT VOLUME 7.8 fl (7.5-11.1); MONO % 5.6 % (3.8-10.2); NEUT % 76.6 % (42.8-82.8); PLATELET COUNT 240 10^3/uL (134-434); RBC 3.34 M/mm3 (3.60-5.2); RDW 19.6 % (11.6-15.6); WHITE BLOOD COUNT 5.8 K/mm3 (4.0-10.0)
[2022-08-22 09:25] LABS: ALBUMIN 2.6 g/dl (3.4-5.0); BLOOD UREA NITROGEN 44.7 mg/dL (7-18); CREATININE 1.1 mg/dL (0.55-1.3)
[2022-08-22 09:26] LABS: TOT PROT 5.7 g/dl (6.4-8.2)
[2022-08-22 09:27] LABS: BILIRUBIN,TOTAL 0.4 mg/dL (0.2-1); CALCIUM 8.1 mg/dL (8.5-10.1)
[2022-08-22] MEDS: FUROSEMIDE 40 MG/4 ML INJECTABLE VIAL IVPUSH SCH ×2 (09:35→22:17)
[2022-08-22] MEDS: CARVEDILOL 12.5 MG TABLET (FP) PO SCH (10:00)
[2022-08-22] MEDS ORDERED: CLOPIDOGREL BISULFATE 75 MG TABLET (FP) PO ONE ×2 (10:00→15:00)
[2022-08-22] MEDS ORDERED: ISOSORBIDE DINITRATE 5 MG TABLET PO ONE (12:09)
[2022-08-22] MEDS ORDERED: CARVEDILOL 12.5 MG TABLET (FP) PO ONE (13:22)
[2022-08-22] MEDS ORDERED: hydrALAZINE HCL 25 MG TABLET (FP) PO SCH (13:23)
[2022-08-22] MEDS: ISOSORBIDE DINITRATE 5 MG TABLET PO SCH ×2 (14:47→18:22)
[2022-08-22] MEDS: MULTIVITAMINS (DAILY MVI) TABLET (FP) PO SCH (14:48)
[2022-08-22] MEDS: PANTOPRAZOLE 40 MG TABLET PO SCH (14:48)
[2022-08-22] MEDS: ASPIRIN 81 MG CHEWABLE TABLETS PO SCH (14:48)
[2022-08-22] MEDS: ENOXAPARIN NA (PORCINE) 40 MG/0.4 ML DISP.SYRIN SQ SCH (14:53)
[2022-08-22] MEDS: DOCUSATE SODIUM 100 MG CAPSULE (FP) PO SCH (14:53)
[2022-08-22] MEDS: CARVEDILOL 25 MG TABLET (FP) PO SCH (22:16)
[2022-08-22] MEDS: ATORVASTATIN CA 80 MG TABLET (FP) PO SCH (22:16)
[2022-08-23] MEDS: FERROUS SO4 325 MG TABLET (FP) PO SCH (06:05)
[2022-08-23] MEDS: hydrALAZINE HCL 25 MG TABLET (FP) PO SCH ×3 (06:05→21:25)
[2022-08-23 07:43] LABS: BASO % 0.8 % (0-2.0); EOS % 8.7 % (0-4.5); HEMATOCRIT 26.4 % (32.4-45.2); HEMOGLOBIN 8.6 GM/dL (10.7-15.3); LYMPH % 11.8 % (8-40); MCH 27.3 pg (25.7-33.7); MCHC 32.5 g/dl (32.0-36.0); MEAN PLT VOLUME 7.6 fl (7.5-11.1); MONO % 6.7 % (3.8-10.2); PLATELET COUNT 220 10^3/uL (134-434); RBC 3.15 M/mm3 (3.60-5.2); RDW 19.6 % (11.6-15.6); WHITE BLOOD COUNT 4.8 K/mm3 (4.0-10.0)
[2022-08-23 08:07] LABS: ALBUMIN 2.6 g/dl (3.4-5.0); CALCIUM 8.2 mg/dL (8.5-10.1)
[2022-08-23 08:08] LABS: BLOOD UREA NITROGEN 45.5 mg/dL (7-18)
[2022-08-23 08:10] LABS: CREATININE 1.2 mg/dL (0.55-1.3)
[2022-08-23 08:12] LABS: BILIRUBIN,TOTAL 0.3 mg/dL (0.2-1); TOT PROT 5.7 g/dl (6.4-8.2)
[2022-08-23] MEDS: AMINO ACIDS/PROTEIN HYDROLYS 30 ML LIQUID.PKT PO SCH ×2 (08:47→17:17)
[2022-08-23] MEDS: ISOSORBIDE DINITRATE 5 MG TABLET PO SCH ×3 (08:48→18:04)
[2022-08-23] MEDS: PANTOPRAZOLE 40 MG TABLET PO SCH (10:01)
[2022-08-23] MEDS: FUROSEMIDE 40 MG/4 ML INJECTABLE VIAL IVPUSH SCH ×2 (10:01→21:26)
[2022-08-23] MEDS: CARVEDILOL 25 MG TABLET (FP) PO SCH ×2 (10:01→21:26)
[2022-08-23] MEDS: MULTIVITAMINS (DAILY MVI) TABLET (FP) PO SCH (10:01)
[2022-08-23] MEDS: CLOPIDOGREL BISULFATE 75 MG TABLET (FP) PO SCH (10:41)
[2022-08-23] MEDS: ASPIRIN 81 MG CHEWABLE TABLETS PO SCH (10:41)
[2022-08-23] MEDS: ENOXAPARIN NA (PORCINE) 40 MG/0.4 ML DISP.SYRIN SQ SCH (10:42)
[2022-08-23] MEDS: DOCUSATE SODIUM 100 MG CAPSULE (FP) PO SCH (10:46)
[2022-08-23] MEDS: SACUBITRIL/VALSARTAN 24 MG-26 MG TABLET PO SCH ×2 (13:28→21:25)
[2022-08-23] MEDS: ATORVASTATIN CA 80 MG TABLET (FP) PO SCH (21:25)
[2022-08-24] MEDS: hydrALAZINE HCL 25 MG TABLET (FP) PO SCH ×3 (05:43→21:51)
[2022-08-24] MEDS: FERROUS SO4 325 MG TABLET (FP) PO SCH (06:06)
[2022-08-24 08:15] LABS: BASO % 0.7 % (0-2.0); EOS % 5.7 % (0-4.5); HEMATOCRIT 27.3 % (32.4-45.2); HEMOGLOBIN 8.8 GM/dL (10.7-15.3); LYMPH % 9.8 % (8-40); MCH 27.2 pg (25.7-33.7); MCHC 32.4 g/dl (32.0-36.0); MEAN CELL VOLUME 83.9 fl (80-96); MONO % 6.7 % (3.8-10.2); NEUT % 77.1 % (42.8-82.8); PLATELET COUNT 264 10^3/uL (134-434); RBC 3.26 M/mm3 (3.60-5.2); RDW 19.9 % (11.6-15.6)
[2022-08-24 09:10] LABS: ALBUMIN 2.6 g/dl (3.4-5.0); BLOOD UREA NITROGEN 45.1 mg/dL (7-18); CALCIUM 8.1 mg/dL (8.5-10.1); MAGNESIUM 1.8 mg/dL (1.8-2.4)
[2022-08-24 09:13] LABS: CREATININE 1.3 mg/dL (0.55-1.3)
[2022-08-24 09:15] LABS: BILIRUBIN,TOTAL 0.3 mg/dL (0.2-1); TOT PROT 5.5 g/dl (6.4-8.2)
[2022-08-24] MEDS: ISOSORBIDE DINITRATE 5 MG TABLET PO SCH ×3 (10:22→19:12)
[2022-08-24] MEDS: ASPIRIN 81 MG CHEWABLE TABLETS PO SCH (10:23)
[2022-08-24] MEDS: CARVEDILOL 25 MG TABLET (FP) PO SCH ×2 (10:24→21:51)
[2022-08-24] MEDS: FUROSEMIDE 40 MG/4 ML INJECTABLE VIAL IVPUSH SCH (10:25)
[2022-08-24] MEDS: DOCUSATE SODIUM 100 MG CAPSULE (FP) PO SCH (10:25)
[2022-08-24] MEDS: SACUBITRIL/VALSARTAN 24 MG-26 MG TABLET PO SCH ×2 (10:26→21:51)
[2022-08-24] MEDS: ENOXAPARIN NA (PORCINE) 40 MG/0.4 ML DISP.SYRIN SQ SCH (10:27)
[2022-08-24] MEDS: PANTOPRAZOLE 40 MG TABLET PO SCH (10:28)
[2022-08-24] MEDS: CLOPIDOGREL BISULFATE 75 MG TABLET (FP) PO SCH (10:28)
[2022-08-24] MEDS: MULTIVITAMINS (DAILY MVI) TABLET (FP) PO SCH (10:28)
[2022-08-24] MEDS: MULTIVITAMINS THER W-MINERALS COMBO TABLET (FP) PO SCH (10:28)
[2022-08-24] MEDS: ASCORBIC ACID 250 MG TABLET (FP) PO SCH (10:29)
[2022-08-24] MEDS: AMINO ACIDS/PROTEIN HYDROLYS 30 ML LIQUID.PKT PO SCH ×2 (10:29→17:41)
[2022-08-24] MEDS: ATORVASTATIN CA 80 MG TABLET (FP) PO SCH (21:51)
[2022-08-25] MEDS: hydrALAZINE HCL 25 MG TABLET (FP) PO SCH ×4 (06:14→22:27)
[2022-08-25] MEDS: FERROUS SO4 325 MG TABLET (FP) PO SCH (06:14)
[2022-08-25 07:43] LABS: BASO % 0.9 % (0-2.0); EOS % 6.7 % (0-4.5); HEMATOCRIT 26.4 % (32.4-45.2); HEMOGLOBIN 8.5 GM/dL (10.7-15.3); LYMPH % 11.2 % (8-40); MCH 26.9 pg (25.7-33.7); MEAN PLT VOLUME 7.8 fl (7.5-11.1); NEUT % 74.2 % (42.8-82.8); PLATELET COUNT 241 10^3/uL (134-434); RBC 3.15 M/mm3 (3.60-5.2); RDW 19.6 % (11.6-15.6); WHITE BLOOD COUNT 5.3 K/mm3 (4.0-10.0)
[2022-08-25 08:23] LABS: ALBUMIN 2.4 g/dl (3.4-5.0); MAGNESIUM 2.1 mg/dL (1.8-2.4)
[2022-08-25 08:26] LABS: CREATININE 1.3 mg/dL (0.55-1.3)
[2022-08-25 08:27] LABS: TOT PROT 5.3 g/dl (6.4-8.2)
[2022-08-25 08:28] LABS: BILIRUBIN,TOTAL 0.3 mg/dL (0.2-1)
[2022-08-25] MEDS: AMINO ACIDS/PROTEIN HYDROLYS 30 ML LIQUID.PKT PO SCH ×2 (09:33→17:01)
[2022-08-25] MEDS: ENOXAPARIN NA (PORCINE) 40 MG/0.4 ML DISP.SYRIN SQ SCH ×2 (10:07→10:15)
[2022-08-25] MEDS: ASPIRIN 81 MG CHEWABLE TABLETS PO SCH (10:08)
[2022-08-25] MEDS: SACUBITRIL/VALSARTAN 24 MG-26 MG TABLET PO SCH ×2 (10:08→22:27)
[2022-08-25] MEDS: MULTIVITAMINS THER W-MINERALS COMBO TABLET (FP) PO SCH (10:08)
[2022-08-25] MEDS: CARVEDILOL 25 MG TABLET (FP) PO SCH ×2 (10:08→22:27)
[2022-08-25] MEDS: ISOSORBIDE DINITRATE 5 MG TABLET PO SCH ×2 (10:08→14:17)
[2022-08-25] MEDS: ASCORBIC ACID 250 MG TABLET (FP) PO SCH (10:09)
[2022-08-25] MEDS: MULTIVITAMINS (DAILY MVI) TABLET (FP) PO SCH (10:09)
[2022-08-25] MEDS: CLOPIDOGREL BISULFATE 75 MG TABLET (FP) PO SCH (10:09)
[2022-08-25] MEDS: PANTOPRAZOLE 40 MG TABLET PO SCH (10:09)
[2022-08-25] MEDS: DOCUSATE SODIUM 100 MG CAPSULE (FP) PO SCH (10:14)
[2022-08-25] MEDS ORDERED: FUROSEMIDE 40 MG/4 ML INJECTABLE VIAL IVPUSH ONE (12:07)
[2022-08-25] MEDS: FUROSEMIDE 40 MG/4 ML INJECTABLE VIAL IVPUSH SCH (17:05)
[2022-08-25] MEDS: ISOSORBIDE DINITRATE 10 MG TABLET PO SCH (19:03)
[2022-08-25] MEDS: ATORVASTATIN CA 80 MG TABLET (FP) PO SCH (22:27)
[2022-08-26] MEDS: hydrALAZINE HCL 25 MG TABLET (FP) PO SCH ×3 (06:55→21:17)
[2022-08-26] MEDS: FERROUS SO4 325 MG TABLET (FP) PO SCH ×2 (06:55→07:00)
[2022-08-26] MEDS: FUROSEMIDE 40 MG/4 ML INJECTABLE VIAL IVPUSH SCH ×2 (06:55→14:01)
[2022-08-26] MEDS: AMINO ACIDS/PROTEIN HYDROLYS 30 ML LIQUID.PKT PO SCH ×2 (08:23→17:05)
[2022-08-26] MEDS: ISOSORBIDE DINITRATE 10 MG TABLET PO SCH ×3 (08:23→17:32)
[2022-08-26] MEDS: PANTOPRAZOLE 40 MG TABLET PO SCH (09:27)
[2022-08-26] MEDS: CARVEDILOL 25 MG TABLET (FP) PO SCH ×2 (09:27→21:17)
[2022-08-26] MEDS: ASPIRIN 81 MG CHEWABLE TABLETS PO SCH (09:27)
[2022-08-26] MEDS: MULTIVITAMINS THER W-MINERALS COMBO TABLET (FP) PO SCH (09:27)
[2022-08-26] MEDS: ASCORBIC ACID 250 MG TABLET (FP) PO SCH (09:27)
[2022-08-26] MEDS: SACUBITRIL/VALSARTAN 24 MG-26 MG TABLET PO SCH ×2 (09:27→21:17)
[2022-08-26] MEDS: CLOPIDOGREL BISULFATE 75 MG TABLET (FP) PO SCH (09:27)
[2022-08-26] MEDS: DOCUSATE SODIUM 100 MG CAPSULE (FP) PO SCH (09:28)
[2022-08-26] MEDS: ENOXAPARIN NA (PORCINE) 40 MG/0.4 ML DISP.SYRIN SQ SCH (09:33)
[2022-08-26 15:54] LABS: BASO % 0.7 % (0-2.0); EOS % 8.2 % (0-4.5); HEMATOCRIT 26.8 % (32.4-45.2); HEMOGLOBIN 8.5 GM/dL (10.7-15.3); LYMPH % 10.1 % (8-40); MCH 26.8 pg (25.7-33.7); MCHC 31.7 g/dl (32.0-36.0); MEAN CELL VOLUME 84.6 fl (80-96); MEAN PLT VOLUME 7.9 fl (7.5-11.1); MONO % 5.9 % (3.8-10.2); NEUT % 75.1 % (42.8-82.8); PLATELET COUNT 237 10^3/uL (134-434); RBC 3.16 M/mm3 (3.60-5.2); RDW 19.7 % (11.6-15.6); WHITE BLOOD COUNT 5.3 K/mm3 (4.0-10.0)
[2022-08-26] MEDS: CARBAMIDE PEROXIDE 6.5% OTIC 15 ML BOTTLE AS SCH ×2 (16:10→21:17)
[2022-08-26 16:13] LABS: CALCIUM 7.9 mg/dL (8.5-10.1)
[2022-08-26 16:14] LABS: ALBUMIN 2.5 g/dl (3.4-5.0); BLOOD UREA NITROGEN 51.7 mg/dL (7-18); MAGNESIUM 2.1 mg/dL (1.8-2.4)
[2022-08-26 16:17] LABS: CREATININE 1.4 mg/dL (0.55-1.3)
[2022-08-26 16:19] LABS: BILIRUBIN,TOTAL 0.2 mg/dL (0.2-1); TOT PROT 5.3 g/dl (6.4-8.2)
[2022-08-26] MEDS: ATORVASTATIN CA 80 MG TABLET (FP) PO SCH (21:17)
[2022-08-27] MEDS: FERROUS SO4 325 MG TABLET (FP) PO SCH (06:51)
[2022-08-27] MEDS: FUROSEMIDE 40 MG/4 ML INJECTABLE VIAL IVPUSH SCH ×2 (06:56→13:28)
[2022-08-27] MEDS: hydrALAZINE HCL 50 MG TABLET (FP) PO SCH ×3 (06:56→22:16)
[2022-08-27] MEDS: hydrALAZINE HCL 25 MG TABLET (FP) PO SCH (06:59)
[2022-08-27 07:26] LABS: BASO % 1.2 % (0-2.0); EOS % 11.4 % (0-4.5); HEMATOCRIT 27.2 % (32.4-45.2); HEMOGLOBIN 8.9 GM/dL (10.7-15.3); LYMPH % 11.7 % (8-40); MCH 27.7 pg (25.7-33.7); MCHC 32.7 g/dl (32.0-36.0); MEAN CELL VOLUME 84.7 fl (80-96); MEAN PLT VOLUME 7.5 fl (7.5-11.1); MONO % 6.9 % (3.8-10.2); NEUT % 68.8 % (42.8-82.8); PLATELET COUNT 233 10^3/uL (134-434); RBC 3.21 M/mm3 (3.60-5.2); RDW 19.9 % (11.6-15.6); WHITE BLOOD COUNT 4.6 K/mm3 (4.0-10.0)
[2022-08-27] MEDS: AMINO ACIDS/PROTEIN HYDROLYS 30 ML LIQUID.PKT PO SCH ×2 (07:31→16:34)
[2022-08-27] MEDS: ISOSORBIDE DINITRATE 10 MG TABLET PO SCH ×3 (07:49→17:24)
[2022-08-27 07:56] LABS: CALCIUM 8.2 mg/dL (8.5-10.1)
[2022-08-27 07:57] LABS: ALBUMIN 2.5 g/dl (3.4-5.0); BLOOD UREA NITROGEN 54.6 mg/dL (7-18)
[2022-08-27 08:00] LABS: CREATININE 1.5 mg/dL (0.55-1.3)
[2022-08-27 08:02] LABS: BILIRUBIN,TOTAL 0.3 mg/dL (0.2-1); TOT PROT 5.4 g/dl (6.4-8.2)
[2022-08-27] MEDS: DOCUSATE SODIUM 100 MG CAPSULE (FP) PO SCH (10:28)
[2022-08-27] MEDS: ENOXAPARIN NA (PORCINE) 40 MG/0.4 ML DISP.SYRIN SQ SCH (10:28)
[2022-08-27] MEDS: PANTOPRAZOLE 40 MG TABLET PO SCH (10:40)
[2022-08-27] MEDS: CARVEDILOL 25 MG TABLET (FP) PO SCH ×2 (10:40→22:16)
[2022-08-27] MEDS: ASCORBIC ACID 250 MG TABLET (FP) PO SCH (10:40)
[2022-08-27] MEDS: CLOPIDOGREL BISULFATE 75 MG TABLET (FP) PO SCH (10:40)
[2022-08-27] MEDS: SACUBITRIL/VALSARTAN 24 MG-26 MG TABLET PO SCH ×2 (10:40→22:16)
[2022-08-27] MEDS: MULTIVITAMINS THER W-MINERALS COMBO TABLET (FP) PO SCH (10:40)
[2022-08-27] MEDS: ASPIRIN 81 MG CHEWABLE TABLETS PO SCH (10:40)
[2022-08-27] MEDS: CARBAMIDE PEROXIDE 6.5% OTIC 15 ML BOTTLE AS SCH ×2 (10:41→22:16)
[2022-08-27] MEDS: ATORVASTATIN CA 80 MG TABLET (FP) PO SCH (22:16)
[2022-08-28] MEDS: hydrALAZINE HCL 50 MG TABLET (FP) PO SCH ×3 (06:13→21:16)
[2022-08-28] MEDS: FERROUS SO4 325 MG TABLET (FP) PO SCH (06:14)
[2022-08-28] MEDS: FUROSEMIDE 40 MG/4 ML INJECTABLE VIAL IVPUSH SCH ×2 (06:14→14:52)
[2022-08-28 07:17] LABS: EOS % 10.4 % (0-4.5); HEMOGLOBIN 8.1 GM/dL (10.7-15.3); LYMPH % 13.1 % (8-40); MCH 27.5 pg (25.7-33.7); MCHC 32.6 g/dl (32.0-36.0); MEAN CELL VOLUME 84.5 fl (80-96); MEAN PLT VOLUME 7.8 fl (7.5-11.1); MONO % 7.9 % (3.8-10.2); NEUT % 67.6 % (42.8-82.8); PLATELET COUNT 221 10^3/uL (134-434); RBC 2.95 M/mm3 (3.60-5.2); RDW 19.7 % (11.6-15.6); WHITE BLOOD COUNT 4.5 K/mm3 (4.0-10.0)
[2022-08-28 07:40] LABS: ALBUMIN 2.4 g/dl (3.4-5.0); BLOOD UREA NITROGEN 58.2 mg/dL (7-18); MAGNESIUM 2.1 mg/dL (1.8-2.4)
[2022-08-28 07:42] LABS: CREATININE 1.5 mg/dL (0.55-1.3)
[2022-08-28 07:43] LABS: TOT PROT 5.2 g/dl (6.4-8.2)
[2022-08-28 07:44] LABS: BILIRUBIN,TOTAL 0.2 mg/dL (0.2-1)
[2022-08-28] MEDS: AMINO ACIDS/PROTEIN HYDROLYS 30 ML LIQUID.PKT PO SCH ×2 (08:59→17:50)
[2022-08-28] MEDS: ISOSORBIDE DINITRATE 10 MG TABLET PO SCH ×3 (08:59→17:48)
[2022-08-28] MEDS: ENOXAPARIN NA (PORCINE) 40 MG/0.4 ML DISP.SYRIN SQ SCH (09:18)
[2022-08-28] MEDS: DOCUSATE SODIUM 100 MG CAPSULE (FP) PO SCH (09:18)
[2022-08-28] MEDS: ASCORBIC ACID 250 MG TABLET (FP) PO SCH (09:19)
[2022-08-28] MEDS: MULTIVITAMINS THER W-MINERALS COMBO TABLET (FP) PO SCH (09:19)
[2022-08-28] MEDS: PANTOPRAZOLE 40 MG TABLET PO SCH (09:19)
[2022-08-28] MEDS: SACUBITRIL/VALSARTAN 24 MG-26 MG TABLET PO SCH ×2 (09:19→21:16)
[2022-08-28] MEDS: ASPIRIN 81 MG CHEWABLE TABLETS PO SCH (09:19)
[2022-08-28] MEDS: CLOPIDOGREL BISULFATE 75 MG TABLET (FP) PO SCH (09:19)
[2022-08-28] MEDS: CARVEDILOL 25 MG TABLET (FP) PO SCH ×2 (09:19→21:16)
[2022-08-28] MEDS: CARBAMIDE PEROXIDE 6.5% OTIC 15 ML BOTTLE AS SCH ×2 (09:20→21:36)
[2022-08-28] MEDS: ALBUMIN HUMAN 25% 12.5 GM/50 ML VIAL IV SCH ×2 (12:24→17:03)
[2022-08-28] MEDS: ATORVASTATIN CA 80 MG TABLET (FP) PO SCH (21:16)
[2022-08-29] MEDS: hydrALAZINE HCL 50 MG TABLET (FP) PO SCH ×3 (06:36→21:35)
[2022-08-29] MEDS: FUROSEMIDE 40 MG/4 ML INJECTABLE VIAL IVPUSH SCH ×2 (06:36→13:52)
[2022-08-29] MEDS: FERROUS SO4 325 MG TABLET (FP) PO SCH (06:42)
[2022-08-29 07:28] LABS: BASO % 0.6 % (0-2.0); EOS % 8.3 % (0-4.5); HEMATOCRIT 24.8 % (32.4-45.2); HEMOGLOBIN 8.1 GM/dL (10.7-15.3); LYMPH % 9.8 % (8-40); MCH 27.4 pg (25.7-33.7); MCHC 32.5 g/dl (32.0-36.0); MEAN CELL VOLUME 84.1 fl (80-96); MEAN PLT VOLUME 7.6 fl (7.5-11.1); MONO % 7.3 % (3.8-10.2); PLATELET COUNT 224 10^3/uL (134-434); RBC 2.94 M/mm3 (3.60-5.2); RDW 19.8 % (11.6-15.6); WHITE BLOOD COUNT 5.2 K/mm3 (4.0-10.0)
[2022-08-29 07:49] LABS: ALBUMIN 2.7 g/dl (3.4-5.0); BLOOD UREA NITROGEN 60.9 mg/dL (7-18); CALCIUM 8.8 mg/dL (8.5-10.1); MAGNESIUM 2.1 mg/dL (1.8-2.4)
[2022-08-29 07:52] LABS: CREATININE 1.5 mg/dL (0.55-1.3)
[2022-08-29 07:54] LABS: BILIRUBIN,TOTAL 0.3 mg/dL (0.2-1); TOT PROT 5.5 g/dl (6.4-8.2)
[2022-08-29] MEDS: ISOSORBIDE DINITRATE 10 MG TABLET PO SCH ×3 (08:03→17:51)
[2022-08-29] MEDS: AMINO ACIDS/PROTEIN HYDROLYS 30 ML LIQUID.PKT PO SCH ×2 (08:03→17:10)
[2022-08-29] MEDS: ENOXAPARIN NA (PORCINE) 40 MG/0.4 ML DISP.SYRIN SQ SCH (09:36)
[2022-08-29] MEDS: SACUBITRIL/VALSARTAN 24 MG-26 MG TABLET PO SCH ×2 (09:37→21:35)
[2022-08-29] MEDS: CARBAMIDE PEROXIDE 6.5% OTIC 15 ML BOTTLE AS SCH ×2 (09:37→21:35)
[2022-08-29] MEDS: ASPIRIN 81 MG CHEWABLE TABLETS PO SCH (09:37)
[2022-08-29] MEDS: MULTIVITAMINS THER W-MINERALS COMBO TABLET (FP) PO SCH (09:37)
[2022-08-29] MEDS: DOCUSATE SODIUM 100 MG CAPSULE (FP) PO SCH (09:37)
[2022-08-29] MEDS: CLOPIDOGREL BISULFATE 75 MG TABLET (FP) PO SCH (09:37)
[2022-08-29] MEDS: ASCORBIC ACID 250 MG TABLET (FP) PO SCH (09:37)
[2022-08-29] MEDS: PANTOPRAZOLE 40 MG TABLET PO SCH (09:37)
[2022-08-29] MEDS: CARVEDILOL 25 MG TABLET (FP) PO SCH ×2 (09:37→21:35)
[2022-08-29] MEDS ORDERED: ALBUMIN HUMAN 25% 12.5 GM/50 ML VIAL IV SCH (15:00)
[2022-08-29] MEDS: ALBUMIN HUMAN 25% 100 ML VIAL IV SCH ×2 (15:33→18:38)
[2022-08-29] MEDS: SPIRONOLACTONE 25 MG TABLET PO SCH (17:51)
[2022-08-29] MEDS: ATORVASTATIN CA 80 MG TABLET (FP) PO SCH (21:35)
[2022-08-30] MEDS: hydrALAZINE HCL 50 MG TABLET (FP) PO SCH ×2 (06:32→14:53)
[2022-08-30] MEDS: FUROSEMIDE 40 MG TABLET (FP) PO SCH ×2 (06:32→14:53)
[2022-08-30] MEDS: FERROUS SO4 325 MG TABLET (FP) PO SCH (06:55)
[2022-08-30 08:10] LABS: BASO % 0.8 % (0-2.0); EOS % 9.3 % (0-4.5); HEMATOCRIT 24.6 % (32.4-45.2); LYMPH % 12.6 % (8-40); MCH 27.6 pg (25.7-33.7); MCHC 32.6 g/dl (32.0-36.0); MEAN CELL VOLUME 84.7 fl (80-96); MEAN PLT VOLUME 7.9 fl (7.5-11.1); NEUT % 69.3 % (42.8-82.8); PLATELET COUNT 195 10^3/uL (134-434); RBC 2.91 M/mm3 (3.60-5.2); RDW 19.7 % (11.6-15.6); WHITE BLOOD COUNT 4.5 K/mm3 (4.0-10.0)
[2022-08-30] MEDS: ISOSORBIDE DINITRATE 10 MG TABLET PO SCH ×3 (08:31→18:54)
[2022-08-30] MEDS: AMINO ACIDS/PROTEIN HYDROLYS 30 ML LIQUID.PKT PO SCH ×2 (08:31→17:00)
[2022-08-30 08:35] LABS: ALBUMIN 3.1 g/dl (3.4-5.0); CALCIUM 8.4 mg/dL (8.5-10.1); MAGNESIUM 2.2 mg/dL (1.8-2.4)
[2022-08-30 08:36] LABS: BLOOD UREA NITROGEN 64.3 mg/dL (7-18)
[2022-08-30 08:38] LABS: CREATININE 1.5 mg/dL (0.55-1.3)
[2022-08-30 08:39] LABS: BILIRUBIN,TOTAL 0.3 mg/dL (0.2-1); TOT PROT 5.6 g/dl (6.4-8.2)
[2022-08-30] MEDS: SPIRONOLACTONE 25 MG TABLET PO SCH (09:45)
[2022-08-30] MEDS: SACUBITRIL/VALSARTAN 24 MG-26 MG TABLET PO SCH (09:45)
[2022-08-30] MEDS: ASCORBIC ACID 250 MG TABLET (FP) PO SCH (09:45)
[2022-08-30] MEDS: CARVEDILOL 25 MG TABLET (FP) PO SCH (09:45)
[2022-08-30] MEDS: MULTIVITAMINS THER W-MINERALS COMBO TABLET (FP) PO SCH (09:46)
[2022-08-30] MEDS: PANTOPRAZOLE 40 MG TABLET PO SCH (09:46)
[2022-08-30] MEDS: CLOPIDOGREL BISULFATE 75 MG TABLET (FP) PO SCH (09:46)
[2022-08-30] MEDS: ASPIRIN 81 MG CHEWABLE TABLETS PO SCH (09:46)
[2022-08-30] MEDS: CARBAMIDE PEROXIDE 6.5% OTIC 15 ML BOTTLE AS SCH (09:47)
[2022-08-30] MEDS: ENOXAPARIN NA (PORCINE) 40 MG/0.4 ML DISP.SYRIN SQ SCH (09:48)
[2022-08-30] MEDS: DOCUSATE SODIUM 100 MG CAPSULE (FP) PO SCH (09:48)
[2022-08-30 15:32] VITALS: RESP 18; TEMP 98.2
[2022-08-30 18:13] VITALS: BP 149/60; PULSE 55
[2022-08-30] MEDS ORDERED: SPIRONOLACTONE 25 MG TABLET PO ONE (18:59)
[2022-08-31] MEDS ORDERED: SPIRONOLACTONE 25 MG TABLET PO SCH (10:00)
== END 2022-08-30 19:52 | disposition home health service (06) | DRG 291 ==
LOC: JER 12:03 → JERBED 14:21 → J4W 08-21 20:43
PROVIDERS: ADMIT Internal Medicine; ATTEND Nurse Practitioner Acute Care
DX: I11.0 Hypertensive heart disease with heart failure (principal); E43 Unspecified severe protein-calorie malnutrition; I50.23 Acute on chronic systolic (congestive) heart failure; R64 Cachexia; N17.9 Acute kidney failure, unspecified; N39.0 Urinary tract infection, site not specified; Z68.1 Body mass index [BMI] 19.9 or less, adult; Z95.5 Presence of coronary angioplasty implant and graft; I16.0 Hypertensive urgency; I25.5 Ischemic cardiomyopathy; R63.0 Anorexia; Z79.82 Long term (current) use of aspirin; Z79.02 Long term (current) use of antithrombotics/antiplatelets; E87.70 Fluid overload, unspecified; R00.1 Bradycardia, unspecified; R79.89 Other specified abnormal findings of blood chemistry; E78.5 Hyperlipidemia, unspecified; R06.01 Orthopnea; E11.9 Type 2 diabetes mellitus without complications; L89.152 Pressure ulcer of sacral region, stage 2; I25.119 Atherosclerotic heart disease of native coronary artery with unspecified angina pectoris; Z74.01 Bed confinement status; R94.5 Abnormal results of liver function studies; K21.9 Gastro-esophageal reflux disease without esophagitis; I27.20 Pulmonary hypertension, unspecified
CPT/HCPCS: 36415; 71045-TC-FY; 71250-TC; 80053; 82272; 82803; 83036; 83735; 83880; 84100; 84484; 85025; 85610; 85730; 93005; 93010; 93306-TC; 97116-GP; 97162-GP; 99285-25; C9803-CS; P9047; U0003; U0005

== ENCOUNTER 2023-04-16 02:10 | Inpatient (IN) | payer OTHER ==
[2023-04-16] MEDS ORDERED: CARVEDILOL 12.5 MG TABLET (FP) PO ONE (02:42)
[2023-04-16] MEDS ORDERED: CARVEDILOL 12.5 MG TABLET (FP) ONE ×2 (02:44→08:19)
[2023-04-16] MEDS ORDERED: SACUBITRIL/VALSARTAN 24 MG-26 MG TABLET PO SCH ×3 (02:44→22:00)
[2023-04-16] MEDS ORDERED: SACUBITRIL/VALSARTAN 24 MG-26 MG TABLET PO ONE (02:46)
[2023-04-16] MEDS ORDERED: ACETAMINOPHEN 325 MG TABLET (FP) ONE ×2 (02:55→12:52)
[2023-04-16] MEDS ORDERED: ACETAMINOPHEN 325 MG TABLET (FP) PO ONE (02:55)
[2023-04-16] MEDS ORDERED: ACETAMINOPHEN 1000 MG/100 ML BAG IVPB ONE (03:02)
[2023-04-16] MEDS ORDERED: METOCLOPRAMIDE HCL INJECTION 10 MG/2 ML VIAL IVPUSH ONE (03:02)
[2023-04-16] MEDS ORDERED: METOCLOPRAMIDE HCL INJECTION 10 MG/2 ML VIAL ONE (03:11)
[2023-04-16] MEDS ORDERED: ACETAMINOPHEN INJECTION 100 ML IVPB ONE (03:12)
[2023-04-16 03:44] LABS: BASO % 1.1 % (0-2.0); EOS % 0.8 % (0-4.5); HEMATOCRIT 29.2 % (32.4-45.2); HEMOGLOBIN 9.5 GM/dL (10.7-15.3); LYMPH % 6.9 % (8-40); MCH 26.3 pg (25.7-33.7); MCHC 32.5 g/dl (32.0-36.0); MEAN PLT VOLUME 7.2 fl (7.5-11.1); MONO % 4.1 % (3.8-10.2); NEUT % 87.1 % (42.8-82.8); PLATELET COUNT 219 10^3/uL (134-434); RDW 16.7 % (11.6-15.6); WHITE BLOOD COUNT 5.2 K/mm3 (4.0-10.0)
[2023-04-16 04:01] LABS: POTASSIUM 5.3 mmol/L (3.5-5.1)
[2023-04-16 04:03] LABS: ALBUMIN 3.6 g/dl (3.4-5.0); BLOOD UREA NITROGEN 52.7 mg/dL (7-18); MAGNESIUM 2.4 mg/dL (1.8-2.4)
[2023-04-16 04:05] LABS: CREATININE 2.4 mg/dL (0.55-1.3)
[2023-04-16 04:07] LABS: BILIRUBIN,TOTAL 0.4 mg/dL (0.2-1); TOT PROT 7.3 g/dl (6.4-8.2)
[2023-04-16] MEDS ORDERED: LABETALOL HCL 5 MG/1 ML (100MG/20 ML VIAL) IVPUSH ONE ×2 (04:15→05:57)
[2023-04-16] MEDS ORDERED: ONDANSETRON 4 MG/2 ML VIAL IVPUSH ONE (04:16)
[2023-04-16] MEDS ORDERED: LABETALOL HCL 20 MG/4 ML VIAL ONE (04:18)
[2023-04-16] MEDS ORDERED: ONDANSETRON 4 MG/2 ML VIAL ONE (04:18)
[2023-04-16 05:31] LABS: INR 1.17 (0.83-1.09); PROTHROMBIN TIME (PATIENT) 13.6 SEC (9.7-13.0)
[2023-04-16] MEDS ORDERED: hydrALAZINE HCL 20 MG/ML VIAL IVPUSH ONE ×2 (06:17→08:27)
[2023-04-16] MEDS ORDERED: hydrALAZINE HCL 20 MG/ML VIAL ONE ×2 (06:18→08:36)
[2023-04-16] MEDS ORDERED: ONDANSETRON 4 MG/2 ML VIAL IVPUSH PRN (08:04)
[2023-04-16] MEDS ORDERED: LACTATED RINGERS SOLUTION 500 ML IV SCH (08:15)
[2023-04-16] MEDS ORDERED: ACETAMINOPHEN 325 MG TABLET (FP) PO PRN (08:16)
[2023-04-16] MEDS ORDERED: LACTATED RINGERS SOLUTION 1,000 ML IV SCH (08:23)
[2023-04-16] MEDS: CARVEDILOL 12.5 MG TABLET (FP) PO SCH ×3 (08:25→21:09)
[2023-04-16] MEDS ORDERED: SODIUM ZIRCONIUM CYCLOSILICATE (LOKELMA) 5 GM PACKET PO ONE (08:38)
[2023-04-16] MEDS ORDERED: SODIUM ZIRCONIUM CYCLOSILICATE (LOKELMA) 5 GM PACKET ONE (08:41)
[2023-04-16] MEDS ORDERED: CLOPIDOGREL BISULFATE 75 MG TABLET (FP) ONE (09:35)
[2023-04-16] MEDS: CLOPIDOGREL BISULFATE 75 MG TABLET (FP) PO SCH (09:37)
[2023-04-16 10:25] LABS: N-TERMINAL BNP 75886.4 pg/ml (5-450)
[2023-04-16] MEDS ORDERED: HEPARIN NA (PORCINE) 5,000 UNITS/ML 1ML VIAL ONE (14:15)
[2023-04-16] MEDS: HEPARIN NA (PORCINE) 5,000 UNITS/ML 1ML VIAL SQ SCH ×2 (14:18→21:13)
[2023-04-16] MEDS: hydrALAZINE HCL 20 MG/ML VIAL IVPUSH PRN (15:15)
[2023-04-16] MEDS: ATORVASTATIN CA 80 MG TABLET (FP) PO SCH (21:08)
[2023-04-17] MEDS: HEPARIN NA (PORCINE) 5,000 UNITS/ML 1ML VIAL SQ SCH ×3 (05:11→21:27)
[2023-04-17 09:25] LABS: BASO % 0.6 % (0-2.0); EOS % 1.3 % (0-4.5); HEMATOCRIT 25.4 % (32.4-45.2); HEMOGLOBIN 8.6 GM/dL (10.7-15.3); LYMPH % 10.9 % (8-40); MCH 27.4 pg (25.7-33.7); MCHC 33.8 g/dl (32.0-36.0); MEAN CELL VOLUME 81.1 fl (80-96); MEAN PLT VOLUME 7.6 fl (7.5-11.1); MONO % 6.7 % (3.8-10.2); NEUT % 80.5 % (42.8-82.8); PLATELET COUNT 210 10^3/uL (134-434); RBC 3.14 M/mm3 (3.60-5.2); RDW 16.2 % (11.6-15.6); WHITE BLOOD COUNT 4.4 K/mm3 (4.0-10.0)
[2023-04-17] MEDS: hydrALAZINE HCL 20 MG/ML VIAL IVPUSH PRN (09:42)
[2023-04-17] MEDS: CARVEDILOL 12.5 MG TABLET (FP) PO SCH ×2 (09:43→21:27)
[2023-04-17 09:58] LABS: CALCIUM 8.9 mg/dL (8.5-10.1)
[2023-04-17 10:00] LABS: ALBUMIN 3.1 g/dl (3.4-5.0); BILIRUBIN,TOTAL 0.3 mg/dL (0.2-1); BLOOD UREA NITROGEN 51.6 mg/dL (7-18); MAGNESIUM 2.5 mg/dL (1.8-2.4); PHOSPHOROUS 4.7 mg/dL (2.5-4.9); TOT PROT 6.3 g/dl (6.4-8.2)
[2023-04-17] MEDS ORDERED: ASPIRIN COATED 81 MG TABLET.EC PO SCH (10:00)
[2023-04-17 10:02] LABS: CREATININE 2.6 mg/dL (0.55-1.3)
[2023-04-17] MEDS: ASPIRIN COATED 81 MG TABLET.EC PO SCH (10:54)
[2023-04-17] MEDS: CLOPIDOGREL BISULFATE 75 MG TABLET (FP) PO SCH (10:54)
[2023-04-17] MEDS: FUROSEMIDE 40 MG TABLET (FP) PO SCH (14:32)
[2023-04-17 17:03] LABS: EPI CELLS 0 /uL (0-25.1); HYALINE CASTS 0 /uL (0-3.1); URINE APPEARANCE CLEAR; URINE BACTERIA 351 /uL (0-1359); URINE BILIRUBIN NEGATIVE (NEGATIVE); URINE COLOR YELLOW; URINE GLUCOSE (UA) NEGATIVE (NEGATIVE); URINE KETONE NEGATIVE (NEGATIVE); URINE LEUK ESTERASE 3+ (NEGATIVE); URINE NITRITE NEGATIVE (NEGATIVE); URINE PROTEIN 3+ (NEGATIVE); URINE RBC 15 /uL (0-23.9); URINE WBC 193 /uL (0-25.8)
[2023-04-17] MEDS: ATORVASTATIN CA 80 MG TABLET (FP) PO SCH (21:27)
[2023-04-18] MEDS: HEPARIN NA (PORCINE) 5,000 UNITS/ML 1ML VIAL SQ SCH ×3 (05:23→21:14)
[2023-04-18 09:42] LABS: POTASSIUM 4.8 mmol/L (3.5-5.1)
[2023-04-18 09:47] LABS: BLOOD UREA NITROGEN 58.6 mg/dL (7-18)
[2023-04-18] MEDS: CLOPIDOGREL BISULFATE 75 MG TABLET (FP) PO SCH (09:47)
[2023-04-18] MEDS: CARVEDILOL 12.5 MG TABLET (FP) PO SCH ×2 (09:47→21:14)
[2023-04-18 09:48] LABS: CALCIUM 8.3 mg/dL (8.5-10.1)
[2023-04-18] MEDS: ASPIRIN COATED 81 MG TABLET.EC PO SCH (09:48)
[2023-04-18] MEDS: FUROSEMIDE 40 MG TABLET (FP) PO SCH (09:48)
[2023-04-18 09:50] LABS: CREATININE 2.8 mg/dL (0.55-1.3)
[2023-04-18] MEDS: ATORVASTATIN CA 80 MG TABLET (FP) PO SCH (21:14)
[2023-04-19] MEDS: HEPARIN NA (PORCINE) 5,000 UNITS/ML 1ML VIAL SQ SCH ×3 (05:28→23:30)
[2023-04-19] MEDS: CLOPIDOGREL BISULFATE 75 MG TABLET (FP) PO SCH (09:47)
[2023-04-19] MEDS: ASPIRIN COATED 81 MG TABLET.EC PO SCH (09:47)
[2023-04-19] MEDS: FUROSEMIDE 40 MG TABLET (FP) PO SCH (09:47)
[2023-04-19] MEDS: CARVEDILOL 12.5 MG TABLET (FP) PO SCH ×2 (09:47→23:30)
[2023-04-19 10:05] LABS: EOS % 3.1 % (0-4.5); HEMATOCRIT 25.7 % (32.4-45.2); HEMOGLOBIN 8.7 GM/dL (10.7-15.3); LYMPH % 15.1 % (8-40); MCH 27.4 pg (25.7-33.7); MCHC 33.9 g/dl (32.0-36.0); MEAN CELL VOLUME 80.8 fl (80-96); MEAN PLT VOLUME 7.7 fl (7.5-11.1); MONO % 7.4 % (3.8-10.2); NEUT % 73.4 % (42.8-82.8); PLATELET COUNT 207 10^3/uL (134-434); RBC 3.18 M/mm3 (3.60-5.2); WHITE BLOOD COUNT 3.6 K/mm3 (4.0-10.0)
[2023-04-19 10:25] LABS: POTASSIUM 4.7 mmol/L (3.5-5.1)
[2023-04-19 10:29] LABS: CALCIUM 8.2 mg/dL (8.5-10.1)
[2023-04-19 10:30] LABS: BLOOD UREA NITROGEN 56.1 mg/dL (7-18)
[2023-04-19 10:33] LABS: CREATININE 2.9 mg/dL (0.55-1.3)
[2023-04-19 10:34] LABS: BILIRUBIN,TOTAL 0.5 mg/dL (0.2-1); TOT PROT 6.4 g/dl (6.4-8.2)
[2023-04-19] MEDS ORDERED: amLODIPine BESYLATE 5 MG TABLET (FP) PO SCH (12:30)
[2023-04-19] MEDS: ATORVASTATIN CA 80 MG TABLET (FP) PO SCH (23:22)
[2023-04-20] MEDS: HEPARIN NA (PORCINE) 5,000 UNITS/ML 1ML VIAL SQ SCH ×3 (05:14→22:00)
[2023-04-20 08:58] LABS: BLOOD UREA NITROGEN 61.2 mg/dL (7-18)
[2023-04-20 08:59] LABS: ALBUMIN 2.9 g/dl (3.4-5.0); CALCIUM 8.1 mg/dL (8.5-10.1)
[2023-04-20 09:02] LABS: CREATININE 2.9 mg/dL (0.55-1.3)
[2023-04-20 09:06] LABS: BILIRUBIN,TOTAL 0.3 mg/dL (0.2-1); TOT PROT 5.9 g/dl (6.4-8.2)
[2023-04-20] MEDS: CARVEDILOL 12.5 MG TABLET (FP) PO SCH ×2 (11:18→22:00)
[2023-04-20] MEDS: ASPIRIN COATED 81 MG TABLET.EC PO SCH (11:18)
[2023-04-20] MEDS: CLOPIDOGREL BISULFATE 75 MG TABLET (FP) PO SCH (11:18)
[2023-04-20] MEDS: amLODIPine BESYLATE 2.5 MG TABLET (FP) PO SCH (11:18)
[2023-04-20] MEDS: ATORVASTATIN CA 80 MG TABLET (FP) PO SCH (21:59)
[2023-04-21] MEDS: HEPARIN NA (PORCINE) 5,000 UNITS/ML 1ML VIAL SQ SCH ×3 (05:14→21:57)
[2023-04-21] MEDS: CARVEDILOL 12.5 MG TABLET (FP) PO SCH ×2 (09:34→21:57)
[2023-04-21] MEDS: ASPIRIN COATED 81 MG TABLET.EC PO SCH (09:34)
[2023-04-21] MEDS: amLODIPine BESYLATE 2.5 MG TABLET (FP) PO SCH (09:34)
[2023-04-21] MEDS: CLOPIDOGREL BISULFATE 75 MG TABLET (FP) PO SCH (09:34)
[2023-04-21 12:30] LABS: POTASSIUM 5.2 mmol/L (3.5-5.1)
[2023-04-21 12:32] LABS: CALCIUM 7.7 mg/dL (8.5-10.1); MAGNESIUM 2.2 mg/dL (1.8-2.4)
[2023-04-21 12:35] LABS: CREATININE 3.1 mg/dL (0.55-1.3); PHOSPHOROUS 3.6 mg/dL (2.5-4.9)
[2023-04-21 12:37] LABS: BILIRUBIN,TOTAL 0.2 mg/dL (0.2-1); TOT PROT 6.2 g/dl (6.4-8.2)
[2023-04-21] MEDS: SODIUM ZIRCONIUM CYCLOSILICATE (LOKELMA) 5 GM PACKET PO ONE (15:34)
[2023-04-21] MEDS ORDERED: FUROSEMIDE 40 MG/4 ML INJECTABLE VIAL IVPUSH ONE (15:45)
[2023-04-21] MEDS: ATORVASTATIN CA 80 MG TABLET (FP) PO SCH (21:57)
[2023-04-21 22:08] VITALS: BMI 16.7
[2023-04-22] MEDS: HEPARIN NA (PORCINE) 5,000 UNITS/ML 1ML VIAL SQ SCH ×3 (05:25→22:49)
[2023-04-22] MEDS: ASPIRIN COATED 81 MG TABLET.EC PO SCH (09:12)
[2023-04-22] MEDS: CARVEDILOL 12.5 MG TABLET (FP) PO SCH ×2 (09:12→22:48)
[2023-04-22] MEDS: amLODIPine BESYLATE 2.5 MG TABLET (FP) PO SCH (09:12)
[2023-04-22] MEDS: CLOPIDOGREL BISULFATE 75 MG TABLET (FP) PO SCH (09:12)
[2023-04-22 10:11] LABS: POTASSIUM 5.2 mmol/L (3.5-5.1)
[2023-04-22 10:13] LABS: BLOOD UREA NITROGEN 72.3 mg/dL (7-18)
[2023-04-22 10:16] LABS: CREATININE 3.1 mg/dL (0.55-1.3)
[2023-04-22] MEDS ORDERED: FUROSEMIDE 40 MG/4 ML INJECTABLE VIAL IVPUSH ONE (10:18)
[2023-04-22 11:21] LABS: MAGNESIUM 2.2 mg/dL (1.8-2.4)
[2023-04-22 11:24] LABS: PHOSPHOROUS 4.3 mg/dL (2.5-4.9)
[2023-04-22] MEDS: hydrALAZINE HCL 10 MG TABLET PO SCH ×2 (11:49→22:48)
[2023-04-22] MEDS: FUROSEMIDE 40 MG/4 ML INJECTABLE VIAL IVPUSH SCH (11:49)
[2023-04-22] MEDS: ISOSORBIDE MONONITRATE 30 MG TAB.SR.24H (FP) PO SCH (11:55)
[2023-04-22] MEDS: SODIUM ZIRCONIUM CYCLOSILICATE (LOKELMA) 5 GM PACKET PO ONE ×3 (11:57→15:32)
[2023-04-22] MEDS: POLYETHYLENE GLYCOL (HEALTHYLAX) 3350 17 GM PACKET PO SCH (16:24)
[2023-04-22] MEDS: ATORVASTATIN CA 80 MG TABLET (FP) PO SCH (22:48)
[2023-04-23] MEDS: HEPARIN NA (PORCINE) 5,000 UNITS/ML 1ML VIAL SQ SCH ×3 (05:00→22:00)
[2023-04-23 08:11] LABS: BASO % 0.9 % (0-2.0); EOS % 2.8 % (0-4.5); HEMATOCRIT 24.2 % (32.4-45.2); HEMOGLOBIN 7.9 GM/dL (10.7-15.3); LYMPH % 12.1 % (8-40); MCH 26.3 pg (25.7-33.7); MCHC 32.7 g/dl (32.0-36.0); MEAN CELL VOLUME 80.5 fl (80-96); MEAN PLT VOLUME 7.3 fl (7.5-11.1); MONO % 8.3 % (3.8-10.2); NEUT % 75.9 % (42.8-82.8); PLATELET COUNT 225 10^3/uL (134-434); RDW 16.5 % (11.6-15.6); WHITE BLOOD COUNT 3.5 K/mm3 (4.0-10.0)
[2023-04-23 08:18] LABS: BLOOD UREA NITROGEN 74.7 mg/dL (7-18); MAGNESIUM 2.2 mg/dL (1.8-2.4)
[2023-04-23 08:22] LABS: CREATININE 2.9 mg/dL (0.55-1.3); PHOSPHOROUS 4.4 mg/dL (2.5-4.9)
[2023-04-23] MEDS: ASPIRIN COATED 81 MG TABLET.EC PO SCH (09:51)
[2023-04-23] MEDS: CARVEDILOL 12.5 MG TABLET (FP) PO SCH ×2 (09:51→22:00)
[2023-04-23] MEDS: CLOPIDOGREL BISULFATE 75 MG TABLET (FP) PO SCH (09:51)
[2023-04-23] MEDS: hydrALAZINE HCL 10 MG TABLET PO SCH ×2 (09:51→22:00)
[2023-04-23] MEDS: PANTOPRAZOLE 40 MG TABLET PO SCH (09:51)
[2023-04-23] MEDS: ISOSORBIDE MONONITRATE 30 MG TAB.SR.24H (FP) PO SCH (09:51)
[2023-04-23] MEDS: FUROSEMIDE 40 MG/4 ML INJECTABLE VIAL IVPUSH SCH (09:51)
[2023-04-23] MEDS: POLYETHYLENE GLYCOL (HEALTHYLAX) 3350 17 GM PACKET PO SCH (09:51)
[2023-04-23] MEDS: ATORVASTATIN CA 80 MG TABLET (FP) PO SCH (22:00)
[2023-04-24] MEDS: HEPARIN NA (PORCINE) 5,000 UNITS/ML 1ML VIAL SQ SCH ×2 (05:10→13:33)
[2023-04-24 08:50] LABS: BASO % 1.2 % (0-2.0); EOS % 3.1 % (0-4.5); HEMATOCRIT 24.6 % (32.4-45.2); HEMOGLOBIN 8.2 GM/dL (10.7-15.3); LYMPH % 11.1 % (8-40); MCH 26.6 pg (25.7-33.7); MCHC 33.4 g/dl (32.0-36.0); MEAN CELL VOLUME 79.7 fl (80-96); MEAN PLT VOLUME 7.6 fl (7.5-11.1); MONO % 8.1 % (3.8-10.2); NEUT % 76.5 % (42.8-82.8); PLATELET COUNT 234 10^3/uL (134-434); RBC 3.09 M/mm3 (3.60-5.2); RDW 16.3 % (11.6-15.6)
[2023-04-24 09:09] LABS: BLOOD UREA NITROGEN 71.5 mg/dL (7-18)
[2023-04-24 09:13] LABS: CREATININE 2.8 mg/dL (0.55-1.3)
[2023-04-24 09:14] LABS: BILIRUBIN,TOTAL 0.7 mg/dL (0.2-1); TOT PROT 6.3 g/dl (6.4-8.2)
[2023-04-24] MEDS: FUROSEMIDE 40 MG/4 ML INJECTABLE VIAL IVPUSH SCH (09:36)
[2023-04-24] MEDS: CARVEDILOL 12.5 MG TABLET (FP) PO SCH (09:36)
[2023-04-24] MEDS: POLYETHYLENE GLYCOL (HEALTHYLAX) 3350 17 GM PACKET PO SCH ×2 (09:36→09:43)
[2023-04-24] MEDS: ASPIRIN COATED 81 MG TABLET.EC PO SCH (09:36)
[2023-04-24] MEDS: hydrALAZINE HCL 10 MG TABLET PO SCH (09:36)
[2023-04-24] MEDS: PANTOPRAZOLE 40 MG TABLET PO SCH (09:36)
[2023-04-24] MEDS: ISOSORBIDE MONONITRATE 30 MG TAB.SR.24H (FP) PO SCH (09:37)
[2023-04-24 11:02] VITALS: RESP 16
[2023-04-24 14:41] VITALS: PULSE 57; TEMP 98.4
[2023-04-24 17:04] VITALS: BP 162/77
== END 2023-04-24 18:19 | disposition home or self-care (01) | DRG 291 ==
LOC: JER 02:10 → JERBED 04:52 → OBSVTOIN 11:35 → J5S 14:24
PROVIDERS: ADMIT Internal Medicine; ATTEND Internal Medicine
DX: I13.0 Hypertensive heart and chronic kidney disease with heart failure and stage 1 through stage 4 chronic kidney disease, or unspecified chronic kidney disease (principal); I50.43 Acute on chronic combined systolic (congestive) and diastolic (congestive) heart failure; J81.0 Acute pulmonary edema; N17.9 Acute kidney failure, unspecified; I16.9 Hypertensive crisis, unspecified; R64 Cachexia; Z68.1 Body mass index [BMI] 19.9 or less, adult; I31.39 Other pericardial effusion (noninflammatory); E78.5 Hyperlipidemia, unspecified; I07.1 Rheumatic tricuspid insufficiency; E86.0 Dehydration; D50.9 Iron deficiency anemia, unspecified; E87.5 Hyperkalemia; R51.9 Headache, unspecified; I25.119 Atherosclerotic heart disease of native coronary artery with unspecified angina pectoris; K21.9 Gastro-esophageal reflux disease without esophagitis; I27.20 Pulmonary hypertension, unspecified; N18.9 Chronic kidney disease, unspecified; R73.03 Prediabetes; H61.22 Impacted cerumen, left ear; Z95.5 Presence of coronary angioplasty implant and graft
CPT/HCPCS: 0241U-QW; 36415; 70450-TC; 71045-TC-FY; 76775-TC; 80048; 80053; 80061; 81003; 82570; 83036; 83735; 83880; 84100; 84132; 84156; 84300; 84443; 84484; 85025; 85610; 85730; 87086; 93005; 93010; 93306-TC; 97161-GP; 99285-25; G0378

== ENCOUNTER 2023-09-03 02:42 | Inpatient (IN) | payer OTHER ==
[2023-09-03 03:56] LABS: BASO % 1.2 % (0-2.0); EOS % 2.4 % (0-4.5); HEMATOCRIT 22.2 % (32.4-45.2); HEMOGLOBIN 7.4 GM/dL (10.7-15.3); LYMPH % 8.8 % (8-40); MCH 29.1 pg (25.7-33.7); MCHC 33.5 g/dl (32.0-36.0); MEAN CELL VOLUME 86.8 fl (80-96); MEAN PLT VOLUME 6.3 fl (7.5-11.1); MONO % 4.3 % (3.8-10.2); NEUT % 83.3 % (42.8-82.8); PLATELET COUNT 276 10^3/uL (134-434); RBC 2.56 M/mm3 (3.60-5.2); RDW 16.8 % (11.6-15.6); WHITE BLOOD COUNT 4.4 K/mm3 (4.0-10.0)
[2023-09-03 03:57] LABS: VENOUS BASE EXCESS -11.5 mmol/L (-2-2); VENOUS O2 SATURATION 86.1 % (70-80); VENOUS PCO2 33.3 mmHg (38-52); VENOUS PH 7.259 (7.310-7.410)
[2023-09-03 04:02] LABS: INR 1.14 (0.83-1.09); PROTHROMBIN TIME (PATIENT) 13.2 SEC (9.7-13.0)
[2023-09-03 04:05] LABS: ACTIVATED PTT 27.7 SECONDS (25.2-36.5)
[2023-09-03 04:15] LABS: CHLORIDE 116 mmol/L (98-107); SODIUM 139 mmol/L (136-145)
[2023-09-03 04:19] LABS: ALBUMIN 3.3 g/dl (3.4-5.0); BLOOD UREA NITROGEN 63.9 mg/dL (7-18); CALCIUM 7.4 mg/dL (8.5-10.1); CO2 16 mmol/L (21-32); GLUCOSE,RANDOM 147 mg/dL (74-106); MAGNESIUM 2.4 mg/dL (1.8-2.4)
[2023-09-03 04:21] LABS: CREATININE 4.3 mg/dL (0.55-1.3); PHOSPHOROUS 4.7 mg/dL (2.5-4.9); SGOT/AST 16 U/L (15-37); SGPT/ALT 11 U/L (13-61)
[2023-09-03 04:22] LABS: BILIRUBIN,TOTAL 0.3 mg/dL (0.2-1)
[2023-09-03 04:23] LABS: TOT PROT 6.9 g/dl (6.4-8.2)
[2023-09-03 04:24] LABS: ALK PHOS 107 U/L (45-117)
[2023-09-03 04:27] LABS: ANION GAP 6 MMOL/L (8-16); POTASSIUM 6.6 mmol/L (3.5-5.1)
[2023-09-03 04:40] LABS: N-TERMINAL BNP 37450.2 pg/ml (5-450)
[2023-09-03] MEDS ORDERED: FOLIC ACID INJECTION - 1 MG, THIAMINE HCL 100 MG, MULTIVIT INJECTION ADULT 10 ML in SOD... IVPB ONE ×3 (04:40→05:51)
[2023-09-03] MEDS ORDERED: FUROSEMIDE 40 MG/4 ML INJECTABLE VIAL IVPUSH ONE ×3 (07:38→14:23)
[2023-09-03] MEDS ORDERED: FUROSEMIDE 40 MG/4 ML INJECTABLE VIAL ONE ×2 (09:04→10:44)
[2023-09-03 09:21] LABS: CHLORIDE 120 mmol/L (98-107); SODIUM 141 mmol/L (136-145)
[2023-09-03 09:22] LABS: CALCIUM 7.4 mg/dL (8.5-10.1); CO2 16 mmol/L (21-32); GLUCOSE,RANDOM 111 mg/dL (74-106)
[2023-09-03 09:23] LABS: BLOOD UREA NITROGEN 64.2 mg/dL (7-18)
[2023-09-03 09:26] LABS: CREATININE 4.2 mg/dL (0.55-1.3)
[2023-09-03 09:29] LABS: ANION GAP 6 MMOL/L (8-16); POTASSIUM 6.4 mmol/L (3.5-5.1)
[2023-09-03] MEDS ORDERED: CALCIUM GLUCONATE 10% - 1,000 MG/10 ML VIAL IVPUSH ONE (09:33)
[2023-09-03] MEDS ORDERED: DEXTROSE 50%-WATER 25 GM/50 ML DISP.SYRIN IVPUSH ONE (09:33)
[2023-09-03] MEDS ORDERED: INSULIN REGULAR HUMAN 100 UNITS/ML *VIAL IVPUSH ONE ×3 (09:33→16:47)
[2023-09-03] MEDS ORDERED: SODIUM ZIRCONIUM CYCLOSILICATE (LOKELMA) 5 GM PACKET PO ONE (09:34)
[2023-09-03] MEDS ORDERED: SODIUM BICARBONATE 8.4% 50 MEQ/50 ML DISP.SYRIN IVPUSH ONE ×2 (09:37→14:22)
[2023-09-03] MEDS ORDERED: CALCIUM GLUCONATE 10% - 1,000 MG/10 ML VIAL ONE (10:00)
[2023-09-03] MEDS ORDERED: amLODIPine BESYLATE 10 MG TABLET (FP) ONE (10:00)
[2023-09-03] MEDS ORDERED: ALBUTEROL SO4 0.083% IH SOL 2.5 MG/3 ML VIAL.NEB. NEB ONE ×2 (10:00→13:16)
[2023-09-03] MEDS ORDERED: SODIUM ZIRCONIUM CYCLOSILICATE (LOKELMA) 10 GM PACKET ONE (10:01)
[2023-09-03] MEDS ORDERED: DEXTROSE 50%-WATER 25 GM/50 ML DISP.SYRIN ONE ×2 (10:01→14:36)
[2023-09-03] MEDS ORDERED: SODIUM BICARBONATE 8.4% 50 MEQ/50 ML DISP.SYRIN ONE (10:01)
[2023-09-03 10:42] LABS: MAGNESIUM 2.5 mg/dL (1.8-2.4)
[2023-09-03 10:45] LABS: TOTAL IRON BINDING CAPACITY 212 ug/dL (250-450)
[2023-09-03 10:46] LABS: IRON SERUM 29 ug/dL (50-175)
[2023-09-03 11:04] LABS: RETICULOCYTES 1.52 % (0.5-1.5)
[2023-09-03 11:13] LABS: CHOLESTEROL 114 mg/dL (50-200)
[2023-09-03 11:14] LABS: LDL CHOLESTEROL (ONLY SJRH) 57 mg/dL (5-100)
[2023-09-03 11:16] LABS: HDL CHOLESTEROL 41 mg/dL (40-60)
[2023-09-03] MEDS: FUROSEMIDE 40 MG/4 ML INJECTABLE VIAL IVPUSH SCH (12:00)
[2023-09-03] MEDS: amLODIPine BESYLATE 10 MG TABLET (FP) PO SCH (12:00)
[2023-09-03] MEDS: ALBUTEROL SO4 0.083% IH SOL 2.5 MG/3 ML VIAL.NEB. NEB SCH ×3 (12:30→13:52)
[2023-09-03 12:52] LABS: CHLORIDE 117 mmol/L (98-107); SODIUM 139 mmol/L (136-145)
[2023-09-03 12:54] LABS: CALCIUM 7.7 mg/dL (8.5-10.1); CO2 17 mmol/L (21-32); GLUCOSE,RANDOM 109 mg/dL (74-106)
[2023-09-03 12:58] LABS: CREATININE 4.2 mg/dL (0.55-1.3)
[2023-09-03 13:01] LABS: ANION GAP 6 MMOL/L (8-16); POTASSIUM 6.5 mmol/L (3.5-5.1)
[2023-09-03 13:31] LABS: CHOLESTEROL 128 mg/dL (50-200)
[2023-09-03 13:32] LABS: LDL CHOLESTEROL (ONLY SJRH) 62 mg/dL (5-100)
[2023-09-03 13:33] LABS: HDL CHOLESTEROL 46 mg/dL (40-60)
[2023-09-03] MEDS ORDERED: DEXTROSE 50%-WATER - 25 GM/50 ML VIAL IVPUSH ONE (14:16)
[2023-09-03] MEDS ORDERED: SODIUM POLYSTYRENE SULFONATE 15 GM/60 ML BOTTLE PO ONE (14:18)
[2023-09-03] MEDS ORDERED: SODIUM POLYSTYRENE SULFONATE 15 GM/60 ML BOTTLE ONE (14:36)
[2023-09-03] MEDS: SODIUM ZIRCONIUM CYCLOSILICATE (LOKELMA) 5 GM PACKET PO SCH ×2 (15:02→21:29)
[2023-09-03 16:37] LABS: POTASSIUM 5.7 mmol/L (3.5-5.1)
[2023-09-03 16:39] LABS: BLOOD UREA NITROGEN 61.9 mg/dL (7-18)
[2023-09-03 16:45] LABS: CALCIUM 7.5 mg/dL (8.5-10.1)
[2023-09-03 17:34] LABS: URINE APPEARANCE CLEAR; URINE BILIRUBIN NEGATIVE (NEGATIVE); URINE COLOR YELLOW; URINE GLUCOSE (UA) 100 (NEGATIVE); URINE KETONE NEGATIVE (NEGATIVE)
[2023-09-03 17:35] LABS: PH,URINE 5.5 (5.0-8.0); URINE LEUK ESTERASE 3+ (NEGATIVE); URINE NITRITE NEGATIVE (NEGATIVE); URINE PROTEIN 100 (NEGATIVE); URINE UROBILINOGEN 0.2 mg/dL (0.2-1.0)
[2023-09-03] MEDS: CARVEDILOL 12.5 MG TABLET (FP) PO SCH (21:26)
[2023-09-03] MEDS: ATORVASTATIN CA 80 MG TABLET (FP) PO SCH (21:29)
[2023-09-03] MEDS: HEPARIN NA (PORCINE) 5,000 UNITS/ML 1ML VIAL SQ SCH (21:29)
[2023-09-03] MEDS ORDERED: CARVEDILOL 12.5 MG TABLET (FP) PO SCH (22:00)
[2023-09-04 07:28] LABS: BASO % 0.8 % (0-2.0); EOS % 3.5 % (0-4.5); HEMATOCRIT 20.2 % (32.4-45.2); LYMPH % 8.1 % (8-40); MCH 29.2 pg (25.7-33.7); MCHC 33.1 g/dl (32.0-36.0); MEAN CELL VOLUME 88.3 fl (80-96); MEAN PLT VOLUME 6.3 fl (7.5-11.1); MONO % 5.8 % (3.8-10.2); NEUT % 81.8 % (42.8-82.8); PLATELET COUNT 276 10^3/uL (134-434); RBC 2.29 M/mm3 (3.60-5.2); RDW 16.2 % (11.6-15.6); WHITE BLOOD COUNT 4.6 K/mm3 (4.0-10.0)
[2023-09-04 07:41] LABS: HEMOGLOBIN 6.7 GM/dL (10.7-15.3)
[2023-09-04 07:46] LABS: POTASSIUM 5.8 mmol/L (3.5-5.1)
[2023-09-04 07:49] LABS: CALCIUM 7.5 mg/dL (8.5-10.1)
[2023-09-04 07:50] LABS: ALBUMIN 3.1 g/dl (3.4-5.0); BLOOD UREA NITROGEN 60.7 mg/dL (7-18); MAGNESIUM 2.4 mg/dL (1.8-2.4)
[2023-09-04 07:53] LABS: PHOSPHOROUS 4.3 mg/dL (2.5-4.9)
[2023-09-04 07:54] LABS: TOT PROT 6.4 g/dl (6.4-8.2)
[2023-09-04 07:55] LABS: BILIRUBIN,TOTAL 0.3 mg/dL (0.2-1)
[2023-09-04] MEDS ORDERED: INSULIN REGULAR HUMAN 100 UNITS/ML *VIAL IVPUSH ONE (08:06)
[2023-09-04] MEDS ORDERED: DEXTROSE 50%-WATER 25 GM/50 ML DISP.SYRIN IVPUSH ONE (08:07)
[2023-09-04] MEDS ORDERED: SODIUM ZIRCONIUM CYCLOSILICATE (LOKELMA) 5 GM PACKET PO SCH (10:00)
[2023-09-04] MEDS ORDERED: ASPIRIN COATED 81 MG TABLET.EC PO SCH (10:00)
[2023-09-04] MEDS: CARVEDILOL 12.5 MG TABLET (FP) PO SCH ×2 (10:10→21:28)
[2023-09-04] MEDS: HEPARIN NA (PORCINE) 5,000 UNITS/ML 1ML VIAL SQ SCH ×3 (10:10→21:29)
[2023-09-04] MEDS: amLODIPine BESYLATE 10 MG TABLET (FP) PO SCH (10:10)
[2023-09-04] MEDS: SODIUM ZIRCONIUM CYCLOSILICATE (LOKELMA) 5 GM PACKET PO SCH ×2 (10:10→21:29)
[2023-09-04] MEDS: FUROSEMIDE 40 MG/4 ML INJECTABLE VIAL IVPUSH SCH (10:10)
[2023-09-04 13:05] LABS: HEMATOCRIT 20.9 % (32.4-45.2); MCH 28.9 pg (25.7-33.7); MEAN CELL VOLUME 87.7 fl (80-96); MEAN PLT VOLUME 6.3 fl (7.5-11.1); PLATELET COUNT 275 10^3/uL (134-434); RBC 2.38 M/mm3 (3.60-5.2); RDW 16.5 % (11.6-15.6); WHITE BLOOD COUNT 5.2 K/mm3 (4.0-10.0)
[2023-09-04 13:12] LABS: HEMOGLOBIN 6.9 GM/dL (10.7-15.3)
[2023-09-04] MEDS: ATORVASTATIN CA 80 MG TABLET (FP) PO SCH (21:29)
[2023-09-05] MEDS: HEPARIN NA (PORCINE) 5,000 UNITS/ML 1ML VIAL SQ SCH ×3 (05:41→21:37)
[2023-09-05 07:16] LABS: HEMATOCRIT 20.1 % (32.4-45.2); MCH 28.6 pg (25.7-33.7); MCHC 32.5 g/dl (32.0-36.0); MEAN CELL VOLUME 88.1 fl (80-96); MEAN PLT VOLUME 6.4 fl (7.5-11.1); PLATELET COUNT 268 10^3/uL (134-434); RBC 2.28 M/mm3 (3.60-5.2); RDW 16.5 % (11.6-15.6); WHITE BLOOD COUNT 4.4 K/mm3 (4.0-10.0)
[2023-09-05 07:25] LABS: HEMOGLOBIN 6.5 GM/dL (10.7-15.3)
[2023-09-05 07:31] LABS: POTASSIUM 5.4 mmol/L (3.5-5.1)
[2023-09-05 07:34] LABS: CALCIUM 7.6 mg/dL (8.5-10.1)
[2023-09-05 07:35] LABS: BLOOD UREA NITROGEN 59.6 mg/dL (7-18)
[2023-09-05 07:38] LABS: CREATININE 4.2 mg/dL (0.55-1.3)
[2023-09-05 07:39] LABS: BILIRUBIN,TOTAL 0.3 mg/dL (0.2-1); TOT PROT 6.1 g/dl (6.4-8.2)
[2023-09-05] MEDS ORDERED: DEXTROSE 50%-WATER - 25 GM/50 ML VIAL IVPUSH ONE (08:10)
[2023-09-05] MEDS ORDERED: INSULIN REGULAR HUMAN 100 UNITS/ML *VIAL IVPUSH ONE (08:10)
[2023-09-05] MEDS: FUROSEMIDE 40 MG/4 ML INJECTABLE VIAL IVPUSH SCH ×2 (09:23→14:11)
[2023-09-05] MEDS: ASPIRIN 81 MG CHEWABLE TABLETS PO SCH (09:23)
[2023-09-05] MEDS: CARVEDILOL 12.5 MG TABLET (FP) PO SCH ×2 (09:23→21:37)
[2023-09-05] MEDS: amLODIPine BESYLATE 10 MG TABLET (FP) PO SCH (09:23)
[2023-09-05] MEDS: SODIUM ZIRCONIUM CYCLOSILICATE (LOKELMA) 5 GM PACKET PO SCH ×2 (12:12→21:38)
[2023-09-05] MEDS: ATORVASTATIN CA 80 MG TABLET (FP) PO SCH (21:37)
[2023-09-05 22:10] VITALS: BMI 17.0
[2023-09-06] MEDS: HEPARIN NA (PORCINE) 5,000 UNITS/ML 1ML VIAL SQ SCH ×4 (05:47→22:10)
[2023-09-06] MEDS: FUROSEMIDE 40 MG/4 ML INJECTABLE VIAL IVPUSH SCH ×2 (05:49→13:13)
[2023-09-06 08:21] LABS: POTASSIUM 5.1 mmol/L (3.5-5.1)
[2023-09-06 08:29] LABS: BILIRUBIN,TOTAL 0.3 mg/dL (0.2-1); TOT PROT 6.2 g/dl (6.4-8.2)
[2023-09-06] MEDS: amLODIPine BESYLATE 10 MG TABLET (FP) PO SCH (09:00)
[2023-09-06] MEDS: CARVEDILOL 12.5 MG TABLET (FP) PO SCH ×2 (09:00→22:05)
[2023-09-06] MEDS: ASPIRIN 81 MG CHEWABLE TABLETS PO SCH (09:00)
[2023-09-06 09:07] LABS: CALCIUM 7.4 mg/dL (8.5-10.1)
[2023-09-06 09:08] LABS: BLOOD UREA NITROGEN 59.6 mg/dL (7-18)
[2023-09-06 09:13] LABS: CREATININE 4.1 mg/dL (0.55-1.3)
[2023-09-06 09:40] LABS: HEMATOCRIT 20.7 % (32.4-45.2); HEMOGLOBIN 7.1 GM/dL (10.7-15.3); MCH 29.5 pg (25.7-33.7); MCHC 34.2 g/dl (32.0-36.0); MEAN CELL VOLUME 86.3 fl (80-96); MEAN PLT VOLUME 6.2 fl (7.5-11.1); PLATELET COUNT 283 10^3/uL (134-434); RBC 2.39 M/mm3 (3.60-5.2); RDW 16.5 % (11.6-15.6); WHITE BLOOD COUNT 4.4 K/mm3 (4.0-10.0)
[2023-09-06] MEDS: SODIUM ZIRCONIUM CYCLOSILICATE (LOKELMA) 5 GM PACKET PO SCH (13:12)
[2023-09-06 21:08] LABS: ANTIGLOMERULAR BASEMENT MEN.AB <0.2 units (0.0-0.9); ATYPICAL pANCA <1:20 titer (Neg:<1:20); C-ANCA <1:20 titer (Neg:<1:20)
[2023-09-06] MEDS: ATORVASTATIN CA 80 MG TABLET (FP) PO SCH ×2 (22:06→22:11)
[2023-09-07] MEDS: FUROSEMIDE 40 MG/4 ML INJECTABLE VIAL IVPUSH SCH ×2 (06:11→14:01)
[2023-09-07] MEDS: HEPARIN NA (PORCINE) 5,000 UNITS/ML 1ML VIAL SQ SCH ×3 (06:14→21:09)
[2023-09-07 08:15] LABS: MCH 28.6 pg (25.7-33.7); MCHC 32.6 g/dl (32.0-36.0); MEAN CELL VOLUME 87.7 fl (80-96); MEAN PLT VOLUME 6.4 fl (7.5-11.1); PLATELET COUNT 270 10^3/uL (134-434); RBC 2.39 M/mm3 (3.60-5.2); RDW 16.6 % (11.6-15.6); WHITE BLOOD COUNT 4.4 K/mm3 (4.0-10.0)
[2023-09-07 08:24] LABS: HEMOGLOBIN 6.8 GM/dL (10.7-15.3)
[2023-09-07 08:25] LABS: CALCIUM 7.1 mg/dL (8.5-10.1)
[2023-09-07 08:26] LABS: BLOOD UREA NITROGEN 58.4 mg/dL (7-18)
[2023-09-07 08:30] LABS: CREATININE 4.1 mg/dL (0.55-1.3); TOT PROT 6.2 g/dl (6.4-8.2)
[2023-09-07 08:32] LABS: BILIRUBIN,TOTAL 0.3 mg/dL (0.2-1)
[2023-09-07] MEDS ORDERED: SODIUM ZIRCONIUM CYCLOSILICATE (LOKELMA) 5 GM PACKET PO SCH (10:00)
[2023-09-07] MEDS: ASPIRIN 81 MG CHEWABLE TABLETS PO SCH (11:27)
[2023-09-07] MEDS: amLODIPine BESYLATE 10 MG TABLET (FP) PO SCH (11:27)
[2023-09-07] MEDS: CARVEDILOL 12.5 MG TABLET (FP) PO SCH ×2 (11:27→21:09)
[2023-09-07] MEDS ORDERED: CARVEDILOL 12.5 MG TABLET (FP) PO ONE (14:52)
[2023-09-07 16:37] VITALS: RESP 18
[2023-09-07] MEDS: ATORVASTATIN CA 80 MG TABLET (FP) PO SCH (21:09)
[2023-09-08 03:24] VITALS: BP 157/68; PULSE 63; TEMP 98
== END 2023-09-08 03:10 | disposition home or self-care (01) | DRG 291 ==
LOC: JER 02:42 → JERBED 05:37 → J4W 20:07 → UNDODISIN 09-07 22:30
PROVIDERS: ADMIT Internal Medicine; ATTEND Internal Medicine
DX: I13.0 Hypertensive heart and chronic kidney disease with heart failure and stage 1 through stage 4 chronic kidney disease, or unspecified chronic kidney disease (principal); I50.23 Acute on chronic systolic (congestive) heart failure; E87.20 Acidosis, unspecified; G82.20 Paraplegia, unspecified; I31.39 Other pericardial effusion (noninflammatory); N18.9 Chronic kidney disease, unspecified; I27.20 Pulmonary hypertension, unspecified; E87.5 Hyperkalemia; I25.10 Atherosclerotic heart disease of native coronary artery without angina pectoris; D17.71 Benign lipomatous neoplasm of kidney; R80.9 Proteinuria, unspecified; D63.1 Anemia in chronic kidney disease; E78.5 Hyperlipidemia, unspecified; D50.9 Iron deficiency anemia, unspecified; Z95.5 Presence of coronary angioplasty implant and graft; Z86.711 Personal history of pulmonary embolism
CPT/HCPCS: 0241U-QW; 36415; 71045-TC-FY; 76775-TC; 80048; 80053; 80061; 81003; 82272; 82570; 82728; 82803; 82962; 83036; 83516; 83520; 83540; 83550; 83735; 83880; 84100; 84155; 84156; 84165; 84466; 84484; 85025; 85027; 85045; 85610; 85730; 86038; 86160; 86162; 86256; 86850; 86900; 86901; 86922; 87086; 87186; 93005; 93010; 93306-TC; 99285-25; J1644

== ENCOUNTER 2023-11-09 13:01 | Inpatient (IN) | payer OTHER ==
[2023-11-09 14:20] LABS: BASO % 0.9 % (0-2.0); EOS % 4.5 % (0-4.5); HEMATOCRIT 22.5 % (32.4-45.2); HEMOGLOBIN 7.2 GM/dL (10.7-15.3); LYMPH % 6.4 % (8-40); MCH 26.5 pg (25.7-33.7); MCHC 31.9 g/dl (32.0-36.0); MEAN CELL VOLUME 82.9 fl (80-96); MEAN PLT VOLUME 6.6 fl (7.5-11.1); NEUT % 81.2 % (42.8-82.8); PLATELET COUNT 251 10^3/uL (134-434); RBC 2.71 M/mm3 (3.60-5.2); RDW 18.1 % (11.6-15.6); WHITE BLOOD COUNT 6.7 K/mm3 (4.0-10.0)
[2023-11-09 14:31] LABS: CHLORIDE 113 mmol/L (98-107); SODIUM 138 mmol/L (136-145)
[2023-11-09 14:33] LABS: CALCIUM 8.3 mg/dL (8.5-10.1)
[2023-11-09 14:34] LABS: ALBUMIN 3.5 g/dl (3.4-5.0); BLOOD UREA NITROGEN 66.2 mg/dL (7-18); CO2 17 mmol/L (21-32); GLUCOSE,RANDOM 116 mg/dL (74-106); MAGNESIUM 2.9 mg/dL (1.8-2.4)
[2023-11-09 14:37] LABS: CREATININE 4.7 mg/dL (0.55-1.3); SGOT/AST 12 U/L (15-37); SGPT/ALT 11 U/L (13-61)
[2023-11-09 14:38] LABS: TOT PROT 6.9 g/dl (6.4-8.2)
[2023-11-09 14:39] LABS: BILIRUBIN,TOTAL 0.4 mg/dL (0.2-1)
[2023-11-09 14:40] LABS: ALK PHOS 84 U/L (45-117)
[2023-11-09 14:44] LABS: ANION GAP 8 mmol/L (4-13); POTASSIUM 6.6 mmol/L (3.5-5.1)
[2023-11-09] MEDS ORDERED: CALCIUM GLUCONATE 10% - 1,000 MG/10 ML VIAL IVPB ONE (14:44)
[2023-11-09] MEDS ORDERED: ALBUTEROL SO4 0.083% IH SOL 2.5 MG/3 ML VIAL.NEB. NEB ONE ×2 (14:47→14:55)
[2023-11-09] MEDS ORDERED: INSULIN REGULAR HUMAN 100 UNITS/ML *VIAL IVPUSH ONE (14:55)
[2023-11-09] MEDS ORDERED: DEXTROSE 50%-WATER 25 GM/50 ML DISP.SYRIN IVPUSH ONE (14:55)
[2023-11-09] MEDS ORDERED: CALCIUM GLUC IN NACL, ISO-OSM 1 GM/50 ML BAG IVPB ONE (14:56)
[2023-11-09] MEDS ORDERED: SODIUM ZIRCONIUM CYCLOSILICATE (LOKELMA) 5 GM PACKET PO SCH ×2 (15:00→22:56)
[2023-11-09] MEDS ORDERED: DEXTROSE 10%-WATER - 1,000 ML IV SCH (15:00)
[2023-11-09] MEDS ORDERED: DEXTROSE 50%-WATER 25 GM/50 ML DISP.SYRIN ONE (15:17)
[2023-11-09 18:20] LABS: POTASSIUM 5.7 mmol/L (3.5-5.1)
[2023-11-09 18:21] LABS: CALCIUM 8.7 mg/dL (8.5-10.1)
[2023-11-09 18:22] LABS: BLOOD UREA NITROGEN 65.2 mg/dL (7-18)
[2023-11-09 18:25] LABS: CREATININE 4.8 mg/dL (0.55-1.3)
[2023-11-09] MEDS ORDERED: DEXTROSE 10%-WATER - 500 ML IV SCH ×2 (18:59→19:00)
[2023-11-09] MEDS ORDERED: SODIUM ZIRCONIUM CYCLOSILICATE (LOKELMA) 5 GM PACKET PO ONE (23:50)
[2023-11-10] MEDS ORDERED: CARVEDILOL 25 MG TABLET (FP) PO ONE (00:30)
[2023-11-10] MEDS ORDERED: FUROSEMIDE 40 MG TABLET (FP) PO ONE (00:30)
[2023-11-10] MEDS ORDERED: FUROSEMIDE 40 MG TABLET (FP) PO SCH (00:30)
[2023-11-10] MEDS ORDERED: CARVEDILOL 25 MG TABLET (FP) PO SCH (00:30)
[2023-11-10] MEDS ORDERED: CARVEDILOL 12.5 MG TABLET (FP) ONE (01:01)
[2023-11-10] MEDS ORDERED: FUROSEMIDE 20 MG TABLET (FP) ONE (01:01)
[2023-11-10] MEDS ORDERED: IRON SUCROSE INJECTION 200 MG in SODIUM CHLORIDE 90 ML IVPB ONE (04:00)
[2023-11-10] MEDS ORDERED: SODIUM ZIRCONIUM CYCLOSILICATE (LOKELMA) 10 GM PACKET ONE (05:37)
[2023-11-10] MEDS ORDERED: SODIUM ZIRCONIUM CYCLOSILICATE (LOKELMA) 5 GM PACKET PO ONE (05:45)
[2023-11-10] MEDS ORDERED: HEPARIN NA (PORCINE) 5,000 UNITS/ML 1ML VIAL SQ SCH (06:00)
[2023-11-10 08:58] LABS: MCH 27.3 pg (25.7-33.7); MCHC 33.3 g/dl (32.0-36.0); MEAN CELL VOLUME 82.1 fl (80-96); MEAN PLT VOLUME 6.4 fl (7.5-11.1); PLATELET COUNT 210 10^3/uL (134-434); RBC 2.56 M/mm3 (3.60-5.2); RDW 17.5 % (11.6-15.6); WHITE BLOOD COUNT 6.7 K/mm3 (4.0-10.0)
[2023-11-10 09:10] LABS: BLOOD UREA NITROGEN 62.4 mg/dL (7-18)
[2023-11-10 09:13] LABS: CREATININE 4.6 mg/dL (0.55-1.3)
[2023-11-10] MEDS: SODIUM ZIRCONIUM CYCLOSILICATE (LOKELMA) 5 GM PACKET PO SCH ×2 (09:33→22:54)
[2023-11-10] MEDS: amLODIPine BESYLATE 10 MG TABLET (FP) PO SCH (09:33)
[2023-11-10] MEDS: ASPIRIN COATED 81 MG TABLET.EC PO SCH (09:33)
[2023-11-10] MEDS ORDERED: HYDROCHLOROTHIAZIDE 25 MG TABLET (FP) ONE (14:13)
[2023-11-10] MEDS: HYDROCHLOROTHIAZIDE 25 MG TABLET (FP) PO SCH (14:20)
[2023-11-10] MEDS: DEXTROSE 10%-WATER - 1,000 ML IV SCH (18:34)
[2023-11-10] MEDS ORDERED: hydrALAZINE HCL 20 MG/ML VIAL IVPB ONE (23:08)
[2023-11-11] MEDS: DEXTROSE 10%-WATER - 1,000 ML IV SCH (08:35)
[2023-11-11] MEDS: HYDROCHLOROTHIAZIDE 25 MG TABLET (FP) PO SCH (10:55)
[2023-11-11] MEDS: SODIUM ZIRCONIUM CYCLOSILICATE (LOKELMA) 5 GM PACKET PO SCH ×2 (10:55→21:32)
[2023-11-11] MEDS: ASPIRIN COATED 81 MG TABLET.EC PO SCH (10:55)
[2023-11-11] MEDS: amLODIPine BESYLATE 10 MG TABLET (FP) PO SCH (10:55)
[2023-11-11 13:57] VITALS: RESP 18
[2023-11-11 14:16] VITALS: BMI 14.3
[2023-11-11] MEDS: CARVEDILOL 12.5 MG TABLET (FP) PO SCH ×2 (14:44→21:32)
[2023-11-11 16:48] LABS: BASO % 0.5 % (0-2.0); EOS % 6.7 % (0-4.5); HEMATOCRIT 21.3 % (32.4-45.2); LYMPH % 7.9 % (8-40); MCH 26.6 pg (25.7-33.7); MCHC 32.7 g/dl (32.0-36.0); MEAN CELL VOLUME 81.2 fl (80-96); MEAN PLT VOLUME 6.3 fl (7.5-11.1); MONO % 6.6 % (3.8-10.2); NEUT % 78.3 % (42.8-82.8); PLATELET COUNT 213 10^3/uL (134-434); RBC 2.62 M/mm3 (3.60-5.2); RDW 17.3 % (11.6-15.6); WHITE BLOOD COUNT 5.5 K/mm3 (4.0-10.0)
[2023-11-11 17:13] LABS: POTASSIUM 4.4 mmol/L (3.5-5.1)
[2023-11-11 17:15] LABS: ALBUMIN 2.9 g/dl (3.4-5.0); CALCIUM 8.1 mg/dL (8.5-10.1)
[2023-11-11 17:16] LABS: BLOOD UREA NITROGEN 58.5 mg/dL (7-18)
[2023-11-11 17:19] LABS: CREATININE 4.5 mg/dL (0.55-1.3)
[2023-11-11 17:20] LABS: BILIRUBIN,TOTAL 0.3 mg/dL (0.2-1)
[2023-11-11] MEDS: SODIUM BICARBONATE 650 MG TABLET PO SCH (21:32)
[2023-11-12 10:08] LABS: BASO % 0.5 % (0-2.0); EOS % 7.8 % (0-4.5); HEMATOCRIT 21.6 % (32.4-45.2); MCH 26.5 pg (25.7-33.7); MCHC 32.4 g/dl (32.0-36.0); MEAN CELL VOLUME 81.8 fl (80-96); MEAN PLT VOLUME 6.1 fl (7.5-11.1); MONO % 6.8 % (3.8-10.2); NEUT % 75.9 % (42.8-82.8); PLATELET COUNT 218 10^3/uL (134-434); RBC 2.65 M/mm3 (3.60-5.2); RDW 17.3 % (11.6-15.6); RETICULOCYTES 1.23 % (0.5-1.5); WHITE BLOOD COUNT 4.6 K/mm3 (4.0-10.0)
[2023-11-12] MEDS: SODIUM BICARBONATE 650 MG TABLET PO SCH ×2 (10:11→21:36)
[2023-11-12] MEDS: amLODIPine BESYLATE 10 MG TABLET (FP) PO SCH (10:11)
[2023-11-12] MEDS: CARVEDILOL 12.5 MG TABLET (FP) PO SCH ×2 (10:11→21:36)
[2023-11-12] MEDS: ASPIRIN COATED 81 MG TABLET.EC PO SCH (10:11)
[2023-11-12 10:25] LABS: POTASSIUM 3.6 mmol/L (3.5-5.1)
[2023-11-12 10:27] LABS: BLOOD UREA NITROGEN 54.6 mg/dL (7-18); CALCIUM 7.5 mg/dL (8.5-10.1)
[2023-11-12 10:28] LABS: ALBUMIN 2.9 g/dl (3.4-5.0)
[2023-11-12 10:31] LABS: CREATININE 4.5 mg/dL (0.55-1.3)
[2023-11-12 10:32] LABS: BILIRUBIN,TOTAL 0.2 mg/dL (0.2-1)
[2023-11-13] MEDS: ASPIRIN COATED 81 MG TABLET.EC PO SCH (10:02)
[2023-11-13] MEDS: amLODIPine BESYLATE 10 MG TABLET (FP) PO SCH (10:02)
[2023-11-13] MEDS: CARVEDILOL 12.5 MG TABLET (FP) PO SCH (10:02)
[2023-11-13] MEDS: SODIUM BICARBONATE 650 MG TABLET PO SCH (10:02)
[2023-11-13 10:07] VITALS: BP 134/58; PULSE 68; TEMP 98.6
== END 2023-11-13 10:23 | disposition home health service (06) | DRG 698 ==
LOC: JER 13:01 → JERBED 16:26 → J6S 11-10 15:01
PROVIDERS: ADMIT Internal Medicine; ATTEND Internal Medicine
DX: N04.9 Nephrotic syndrome with unspecified morphologic changes (principal); E43 Unspecified severe protein-calorie malnutrition; R53.2 Functional quadriplegia; I13.0 Hypertensive heart and chronic kidney disease with heart failure and stage 1 through stage 4 chronic kidney disease, or unspecified chronic kidney disease; I50.22 Chronic systolic (congestive) heart failure; G82.20 Paraplegia, unspecified; E87.20 Acidosis, unspecified; Z68.1 Body mass index [BMI] 19.9 or less, adult; E11.22 Type 2 diabetes mellitus with diabetic chronic kidney disease; I16.0 Hypertensive urgency; D50.9 Iron deficiency anemia, unspecified; I25.10 Atherosclerotic heart disease of native coronary artery without angina pectoris; E78.5 Hyperlipidemia, unspecified; E87.5 Hyperkalemia; N18.9 Chronic kidney disease, unspecified
CPT/HCPCS: 36415; 71045-TC-FY; 73562-TC-LT-FY; 80048; 80053; 82272; 82728; 82962; 83540; 83550; 83735; 85025; 85027; 85045; 93005; 93010; 99285-25; J1644; J1756

== ENCOUNTER 2024-01-07 03:53 | Inpatient (IN) | payer OTHER ==
[2024-01-07] MEDS ORDERED: AZITHROMYCIN IVPB 500 MG/250 ML BAG IVPB ONE (06:24)
[2024-01-07] MEDS: AZITHROMYCIN IVPB 500 MG in DEXTROSE 5%-WATER - 250 ML IVPB ONE (06:24)
[2024-01-07 06:27] LABS: EOS % 2.5 % (0-4.5); HEMATOCRIT 21.9 % (32.4-45.2); HEMOGLOBIN 7.1 GM/dL (10.7-15.3); LYMPH % 7.5 % (8-40); MCH 27.5 pg (25.7-33.7); MCHC 32.3 g/dl (32.0-36.0); MEAN CELL VOLUME 85.1 fl (80-96); MEAN PLT VOLUME 6.3 fl (7.5-11.1); MONO % 3.8 % (3.8-10.2); NEUT % 85.2 % (42.8-82.8); PLATELET COUNT 289 10^3/uL (134-434); RBC 2.58 M/mm3 (3.60-5.2); RDW 19.5 % (11.6-15.6); WHITE BLOOD COUNT 5.1 K/mm3 (4.0-10.0)
[2024-01-07 06:34] LABS: INR 1.16 (0.83-1.09); PROTHROMBIN TIME (PATIENT) 13.4 SEC (9.7-13.0)
[2024-01-07 06:37] LABS: ACTIVATED PTT 28.3 SECONDS (25.2-36.5)
[2024-01-07 06:50] LABS: CHLORIDE 118 mmol/L (98-107); SODIUM 141 mmol/L (136-145)
[2024-01-07 06:52] LABS: CALCIUM 7.7 mg/dL (8.5-10.1)
[2024-01-07 06:53] LABS: ALBUMIN 3.4 g/dl (3.4-5.0); BLOOD UREA NITROGEN 82.6 mg/dL (7-18); CO2 13 mmol/L (21-32); GLUCOSE,RANDOM 113 mg/dL (74-106)
[2024-01-07 06:56] LABS: CREATININE 5.7 mg/dL (0.55-1.3); SGOT/AST 11 U/L (15-37); SGPT/ALT 8 U/L (13-61)
[2024-01-07 06:57] LABS: BILIRUBIN,TOTAL 0.4 mg/dL (0.2-1)
[2024-01-07 06:58] LABS: TOT PROT 6.9 g/dl (6.4-8.2)
[2024-01-07 06:59] LABS: ALK PHOS 74 U/L (45-117)
[2024-01-07 07:16] LABS: ANION GAP 10 mmol/L (4-13); N-TERMINAL BNP 42284.7 pg/ml (5-450); POTASSIUM 6.6 mmol/L (3.5-5.1)
[2024-01-07] MEDS ORDERED: CALCIUM GLUC IN NACL, ISO-OSM 1 GM/50 ML BAG IVPB ONE (09:03)
[2024-01-07] MEDS: CALCIUM GLUCONATE IN NACL 1 GM/50 ML BAG IVPB ONE (09:22)
[2024-01-07] MEDS ORDERED: SODIUM ZIRCONIUM CYCLOSILICATE (LOKELMA) 10 GM PACKET ONE ×2 (10:23→16:00)
[2024-01-07] MEDS ORDERED: DEXTROSE 50%-WATER 25 GM/50 ML DISP.SYRIN ONE (10:23)
[2024-01-07] MEDS ORDERED: CEFTRIAXONE 1 GM/50 ML BAG ONE (10:25)
[2024-01-07] MEDS: INSULIN REGULAR HUMAN 100 UNITS/ML *VIAL IVPUSH ONE (10:36)
[2024-01-07] MEDS: CEFTRIAXONE 1,000 MG in DEXTROSE 5%-WATER - 50 ML IVPB ONE (10:36)
[2024-01-07] MEDS: DEXTROSE 50%-WATER 25 GM/50 ML DISP.SYRIN IVPUSH ONE (10:36)
[2024-01-07] MEDS: SODIUM ZIRCONIUM CYCLOSILICATE (LOKELMA) 5 GM PACKET PO SCH ×2 (10:36→17:19)
[2024-01-07] MEDS ORDERED: FUROSEMIDE 40 MG/4 ML INJECTABLE VIAL ONE (11:20)
[2024-01-07] MEDS: HEPARIN NA (PORCINE) 5,000 UNITS/ML 1ML VIAL SQ SCH (11:31)
[2024-01-07] MEDS: FUROSEMIDE 40 MG/4 ML INJECTABLE VIAL IVPUSH ONE (11:32)
[2024-01-07] MEDS ORDERED: amLODIPine BESYLATE 10 MG TABLET (FP) ONE (12:32)
[2024-01-07] MEDS: amLODIPine BESYLATE 10 MG TABLET (FP) PO SCH (14:35)
[2024-01-07] MEDS ORDERED: SODIUM BICARBONATE 8.4% 50 MEQ/50 ML DISP.SYRIN ONE (15:59)
[2024-01-07 16:48] LABS: POTASSIUM 5.9 mmol/L (3.5-5.1)
[2024-01-07 16:50] LABS: BLOOD UREA NITROGEN 78.8 mg/dL (7-18)
[2024-01-07 16:53] LABS: CREATININE 5.4 mg/dL (0.55-1.3)
[2024-01-07] MEDS: SODIUM BICARBONATE 8.4% 50 MEQ/50 ML DISP.SYRIN IVPUSH ONE (17:19)
[2024-01-07] MEDS: SODIUM BICARBONATE 650 MG TABLET PO SCH (22:02)
[2024-01-08] MEDS: FUROSEMIDE 40 MG/4 ML INJECTABLE VIAL IVPUSH ONE (01:05)
[2024-01-08] MEDS: ALBUTEROL SO4 0.083% IH SOL 2.5 MG/3 ML VIAL.NEB. NEB ONE (01:06)
[2024-01-08] MEDS: amLODIPine BESYLATE 5 MG TABLET (FP) PO ONE ×3 (04:34→09:55)
[2024-01-08 06:56] LABS: BASO % 0.9 % (0-2.0); EOS % 4.2 % (0-4.5); HEMATOCRIT 21.3 % (32.4-45.2); LYMPH % 8.1 % (8-40); MCH 27.5 pg (25.7-33.7); MCHC 32.8 g/dl (32.0-36.0); MEAN CELL VOLUME 83.8 fl (80-96); MEAN PLT VOLUME 6.1 fl (7.5-11.1); NEUT % 80.8 % (42.8-82.8); PLATELET COUNT 278 10^3/uL (134-434); RBC 2.55 M/mm3 (3.60-5.2); RDW 19.1 % (11.6-15.6); WHITE BLOOD COUNT 4.7 K/mm3 (4.0-10.0)
[2024-01-08 07:05] LABS: INR 1.2 (0.83-1.09); PROTHROMBIN TIME (PATIENT) 13.9 SEC (9.7-13.0)
[2024-01-08 07:14] LABS: CHLORIDE 116 mmol/L (98-107); POTASSIUM 5.3 mmol/L (3.5-5.1); SODIUM 140 mmol/L (136-145)
[2024-01-08 07:23] LABS: CALCIUM 7.5 mg/dL (8.5-10.1); GLUCOSE,RANDOM 106 mg/dL (74-106)
[2024-01-08 07:24] LABS: ALBUMIN 3.4 g/dl (3.4-5.0); ANION GAP 8 mmol/L (4-13); BLOOD UREA NITROGEN 80.6 mg/dL (7-18); CO2 16 mmol/L (21-32); MAGNESIUM 2.3 mg/dL (1.8-2.4); PHOSPHOROUS 5.2 mg/dL (2.5-4.9); SGPT/ALT < 6 U/L (13-61); TOT PROT 6.4 g/dl (6.4-8.2)
[2024-01-08 07:25] LABS: BILIRUBIN,TOTAL 0.3 mg/dL (0.2-1)
[2024-01-08 07:26] LABS: ALK PHOS 71 U/L (45-117); CREATININE 5.5 mg/dL (0.55-1.3); SGOT/AST 6 U/L (15-37)
[2024-01-08] MEDS: ASPIRIN COATED 81 MG TABLET.EC PO SCH (09:55)
[2024-01-08] MEDS: CARVEDILOL 25 MG TABLET (FP) PO SCH (09:55)
[2024-01-08] MEDS: FUROSEMIDE 40 MG/4 ML INJECTABLE VIAL IVPUSH SCH ×2 (14:29→14:57)
[2024-01-08] MEDS: hydrALAZINE HCL 10 MG TABLET PO SCH (15:08)
[2024-01-08] MEDS: CALCIUM ACETATE 667 MG CAPSULE (FP) PO SCH (17:35)
[2024-01-08] MEDS: HEPARIN NA (PORCINE) 5,000 UNITS/ML 1ML VIAL SQ SCH (21:36)
[2024-01-09] MEDS: amLODIPine BESYLATE 5 MG TABLET (FP) PO ONE ×2 (01:49→09:40)
[2024-01-09] MEDS: FUROSEMIDE 40 MG/4 ML INJECTABLE VIAL IVPUSH SCH (06:13)
[2024-01-09 07:18] LABS: HEMATOCRIT 19.5 % (32.4-45.2); MCH 27.4 pg (25.7-33.7); MCHC 33.2 g/dl (32.0-36.0); MEAN CELL VOLUME 82.5 fl (80-96); MEAN PLT VOLUME 6.3 fl (7.5-11.1); PLATELET COUNT 267 10^3/uL (134-434); RBC 2.36 M/mm3 (3.60-5.2); RDW 18.8 % (11.6-15.6); WHITE BLOOD COUNT 4.6 K/mm3 (4.0-10.0)
[2024-01-09 07:34] LABS: HEMOGLOBIN 6.5 GM/dL (10.7-15.3)
[2024-01-09 07:38] LABS: CHLORIDE 115 mmol/L (98-107); POTASSIUM 4.5 mmol/L (3.5-5.1); SODIUM 142 mmol/L (136-145)
[2024-01-09 07:49] LABS: ANION GAP 9 mmol/L (4-13); BLOOD UREA NITROGEN 83.7 mg/dL (7-18); CALCIUM 7.4 mg/dL (8.5-10.1); CO2 18 mmol/L (21-32); GLUCOSE,RANDOM 88 mg/dL (74-106)
[2024-01-09 07:52] LABS: CREATININE 5.2 mg/dL (0.55-1.3)
[2024-01-09 07:53] LABS: SGOT/AST 8 U/L (15-37)
[2024-01-09 07:54] LABS: BILIRUBIN,TOTAL 0.3 mg/dL (0.2-1)
[2024-01-09 07:55] LABS: ALK PHOS 66 U/L (45-117)
[2024-01-09 08:10] LABS: SGPT/ALT < 6 U/L (13-61)
[2024-01-09 08:47] LABS: IRON SERUM 17 ug/dL (50-175); RETICULOCYTES 1.93 % (0.5-1.5); TOTAL IRON BINDING CAPACITY 188 ug/dL (250-450)
[2024-01-09] MEDS: SODIUM ZIRCONIUM CYCLOSILICATE (LOKELMA) 5 GM PACKET PO SCH (09:40)
[2024-01-09] MEDS ORDERED: amLODIPine BESYLATE 10 MG TABLET (FP) PO SCH (10:00)
[2024-01-09] MEDS: IRON SUCROSE INJECTION 100 MG in SODIUM CHLORIDE 95 ML IVPB ONE (12:20)
[2024-01-09] MEDS: EPOETIN ALFA 10,000 UNIT/1 ML VIAL SQ ONE (17:13)
[2024-01-10 07:25] LABS: HEMATOCRIT 20.6 % (32.4-45.2); MCH 27.7 pg (25.7-33.7); MCHC 33.4 g/dl (32.0-36.0); MEAN CELL VOLUME 83.1 fl (80-96); MEAN PLT VOLUME 6.3 fl (7.5-11.1); PLATELET COUNT 278 10^3/uL (134-434); RBC 2.48 M/mm3 (3.60-5.2); RDW 19.2 % (11.6-15.6); WHITE BLOOD COUNT 5.4 K/mm3 (4.0-10.0)
[2024-01-10 07:26] LABS: HEMOGLOBIN 6.9 GM/dL (10.7-15.3)
[2024-01-10 07:44] LABS: POTASSIUM 4.1 mmol/L (3.5-5.1)
[2024-01-10 07:50] LABS: ALBUMIN 3.4 g/dl (3.4-5.0); CALCIUM 7.3 mg/dL (8.5-10.1); MAGNESIUM 2.4 mg/dL (1.8-2.4)
[2024-01-10 07:53] LABS: CREATININE 5.3 mg/dL (0.55-1.3); PHOSPHOROUS 4.5 mg/dL (2.5-4.9)
[2024-01-10 07:55] LABS: BILIRUBIN,TOTAL 0.3 mg/dL (0.2-1); TOT PROT 6.3 g/dl (6.4-8.2)
[2024-01-10] MEDS: amLODIPine BESYLATE 10 MG TABLET (FP) PO SCH (09:07)
[2024-01-10 12:43] VITALS: BMI 15.5
[2024-01-10] MEDS: ISOSORBIDE DINITRATE 5 MG TABLET PO SCH (13:01)
[2024-01-10] MEDS: hydrALAZINE HCL 25 MG TABLET (FP) PO SCH (13:19)
[2024-01-10 16:09] VITALS: TEMP 98.4
[2024-01-10 16:18] VITALS: BP 164/63; PULSE 70; RESP 17
== END 2024-01-10 18:58 | disposition home or self-care (01) | DRG 291 ==
LOC: JER 03:53 → JERBED 05:49 → OBSVTOIN 08:30 → J4W 19:14
PROVIDERS: ADMIT Internal Medicine; ATTEND Internal Medicine
DX: I13.2 Hypertensive heart and chronic kidney disease with heart failure and with stage 5 chronic kidney disease, or end stage renal disease (principal); E43 Unspecified severe protein-calorie malnutrition; I50.43 Acute on chronic combined systolic (congestive) and diastolic (congestive) heart failure; N18.5 Chronic kidney disease, stage 5; G82.20 Paraplegia, unspecified; R64 Cachexia; Z68.1 Body mass index [BMI] 19.9 or less, adult; N17.9 Acute kidney failure, unspecified; E87.20 Acidosis, unspecified; I25.10 Atherosclerotic heart disease of native coronary artery without angina pectoris; E78.5 Hyperlipidemia, unspecified; D63.1 Anemia in chronic kidney disease; E87.70 Fluid overload, unspecified; E87.5 Hyperkalemia; E11.22 Type 2 diabetes mellitus with diabetic chronic kidney disease; I16.0 Hypertensive urgency; Z95.5 Presence of coronary angioplasty implant and graft
CPT/HCPCS: 0241U-QW; 36415; 71045-TC-FY; 71250-TC; 80048; 80053; 82272; 82728; 83540; 83550; 83735; 83880; 84100; 84484; 85025; 85027; 85045; 85610; 85730; 93005; 93010; 97116-GP; 97162-GP; 99285-25; G0378; J1644; J1756

== ENCOUNTER 2024-05-08 02:11 | Inpatient (IN) | payer OTHER ==
[2024-05-08] MEDS: SODIUM CHLORIDE 1,000 ML IV SCH (02:55)
[2024-05-08 03:24] LABS: BASO % 0.8 % (0-2.0); EOS % 2.4 % (0-4.5); LYMPH % 10.4 % (8-40); MCH 27.4 pg (25.7-33.7); MEAN CELL VOLUME 85.5 fl (80-96); MEAN PLT VOLUME 6.1 fl (7.5-11.1); MONO % 6.5 % (3.8-10.2); NEUT % 79.9 % (42.8-82.8); PLATELET COUNT 307 10^3/uL (134-434); RBC 2.45 M/mm3 (3.60-5.2); RDW 19.5 % (11.6-15.6); WHITE BLOOD COUNT 4.4 K/mm3 (4.0-10.0)
[2024-05-08 03:28] LABS: HEMOGLOBIN 6.7 GM/dL (10.7-15.3)
[2024-05-08 03:38] LABS: CHLORIDE 112 mmol/L (98-107); SODIUM 135 mmol/L (136-145)
[2024-05-08 03:41] LABS: ALBUMIN 3.6 g/dl (3.4-5.0); BLOOD UREA NITROGEN 92.5 mg/dL (7-18); CO2 14 mmol/L (21-32); GLUCOSE,RANDOM 110 mg/dL (74-106); MAGNESIUM 2.7 mg/dL (1.8-2.4)
[2024-05-08 03:43] LABS: SGPT/ALT 14 U/L (13-61)
[2024-05-08 03:44] LABS: CREATININE 6.6 mg/dL (0.55-1.3); PHOSPHOROUS 5.9 mg/dL (2.5-4.9); SGOT/AST 16 U/L (15-37)
[2024-05-08 03:45] LABS: BILIRUBIN,TOTAL 0.4 mg/dL (0.2-1)
[2024-05-08 03:47] LABS: ALK PHOS 82 U/L (45-117)
[2024-05-08 03:50] LABS: ANION GAP 9 mmol/L (4-13); CALCIUM 6.9 mg/dL (8.5-10.1); POTASSIUM 6.6 mmol/L (3.5-5.1)
[2024-05-08] MEDS ORDERED: INSULIN REGULAR HUMAN 100 UNITS/ML *VIAL ONE ×3 (03:57)
[2024-05-08] MEDS ORDERED: DEXTROSE 50%-WATER 25 GM/50 ML DISP.SYRIN ONE ×3 (03:58→10:50)
[2024-05-08] MEDS ORDERED: CALCIUM GLUC IN NACL, ISO-OSM 1 GM/50 ML BAG IVPB ONE ×3 (03:58→09:00)
[2024-05-08] MEDS: INSULIN REGULAR HUMAN 100 UNITS/ML *VIAL IVPUSH ONE ×2 (04:09→05:52)
[2024-05-08] MEDS: DEXTROSE 50%-WATER - 25 GM/50 ML VIAL IVPUSH ONE (04:10)
[2024-05-08] MEDS: CALCIUM GLUCONATE 10% - 1,000 MG/10 ML VIAL IVPB ONE (04:10)
[2024-05-08 04:37] LABS: POTASSIUM 6.2 mmol/L (3.5-5.1)
[2024-05-08] MEDS ORDERED: SODIUM ZIRCONIUM CYCLOSILICATE (LOKELMA) 10 GM PACKET ONE ×2 (04:48→09:11)
[2024-05-08] MEDS ORDERED: SODIUM ZIRCONIUM CYCLOSILICATE (LOKELMA) 5 GM PACKET PO SCH ×2 (04:48→10:00)
[2024-05-08] MEDS: SODIUM ZIRCONIUM CYCLOSILICATE (LOKELMA) 5 GM PACKET PO ONE (04:54)
[2024-05-08] MEDS: DEXTROSE 50%-WATER 25 GM/50 ML DISP.SYRIN IVPUSH ONE (05:52)
[2024-05-08] MEDS: SODIUM CHLORIDE 0.45% 1,000 ML IV SCH (06:19)
[2024-05-08] MEDS: CALCIUM GLUCONATE 10% - 1,000 MG/10 ML VIAL IVPUSH ONE (06:19)
[2024-05-08 07:17] LABS: POTASSIUM 5.4 mmol/L (3.5-5.1)
[2024-05-08 07:19] LABS: ALBUMIN 3.6 g/dl (3.4-5.0); BLOOD UREA NITROGEN 92.9 mg/dL (7-18); CALCIUM 7.2 mg/dL (8.5-10.1)
[2024-05-08 07:22] LABS: CREATININE 6.5 mg/dL (0.55-1.3)
[2024-05-08 07:24] LABS: BILIRUBIN,TOTAL 0.3 mg/dL (0.2-1); TOT PROT 6.9 g/dl (6.4-8.2)
[2024-05-08] MEDS ORDERED: CARVEDILOL 12.5 MG TABLET (FP) PO SCH ×2 (08:23→10:00)
[2024-05-08 08:24] LABS: PHOSPHOROUS 5.3 mg/dL (2.5-4.9)
[2024-05-08] MEDS ORDERED: SODIUM BICARBONATE 8.4% 50 MEQ/50 ML DISP.SYRIN ONE (09:01)
[2024-05-08] MEDS: CALCIUM GLUCONATE IN NACL 1 GM/50 ML BAG IVPB ONE (09:08)
[2024-05-08] MEDS: SODIUM BICARBONATE 8.4% 50 MEQ/50 ML DISP.SYRIN IVPUSH ONE (09:08)
[2024-05-08] MEDS ORDERED: CARVEDILOL 6.25 MG TABLET (FP) ONE (09:10)
[2024-05-08] MEDS ORDERED: amLODIPine BESYLATE 10 MG TABLET (FP) ONE (09:10)
[2024-05-08] MEDS: SODIUM ZIRCONIUM CYCLOSILICATE (LOKELMA) 5 GM PACKET PO SCH (09:23)
[2024-05-08] MEDS: amLODIPine BESYLATE 10 MG TABLET (FP) PO SCH (09:23)
[2024-05-08] MEDS: CARVEDILOL 12.5 MG TABLET (FP) PO SCH (09:23)
[2024-05-08] MEDS ORDERED: SODIUM BICARBONATE 650 MG TABLET PO SCH (10:00)
[2024-05-08] MEDS ORDERED: amLODIPine BESYLATE 10 MG TABLET (FP) PO SCH (10:00)
[2024-05-08] MEDS ORDERED: ASPIRIN 81 MG CHEWABLE TABLETS PO SCH (10:00)
[2024-05-08] MEDS: ASPIRIN COATED 81 MG TABLET.EC PO SCH (11:00)
[2024-05-08] MEDS ORDERED: DEXTROSE 50%-WATER 25 GM/50 ML DISP.SYRIN IVPUSH PRN (11:05)
[2024-05-08 12:50] LABS: POTASSIUM 5.1 mmol/L (3.5-5.1)
[2024-05-08 12:55] LABS: CALCIUM 7.5 mg/dL (8.5-10.1)
[2024-05-08 12:56] LABS: MAGNESIUM 2.6 mg/dL (1.8-2.4)
[2024-05-08 12:59] LABS: CREATININE 6.3 mg/dL (0.55-1.3); PHOSPHOROUS 5.6 mg/dL (2.5-4.9)
[2024-05-08] MEDS: SODIUM BICARBONATE 650 MG TABLET PO SCH (16:22)
[2024-05-08] MEDS: CALCIUM ACETATE 667 MG CAPSULE (FP) PO SCH (16:22)
[2024-05-08] MEDS: EPOETIN ALFA 10,000 UNIT/1 ML VIAL SQ ONE (17:58)
[2024-05-09 07:59] LABS: CHLORIDE 107 mmol/L (98-107); POTASSIUM 4.8 mmol/L (3.5-5.1); SODIUM 136 mmol/L (136-145)
[2024-05-09 08:02] LABS: ANION GAP 15 mmol/L (4-13); BLOOD UREA NITROGEN 82.5 mg/dL (7-18); CO2 14 mmol/L (21-32); GLUCOSE,RANDOM 82 mg/dL (74-106); MAGNESIUM 2.2 mg/dL (1.8-2.4)
[2024-05-09 08:05] LABS: CREATININE 5.9 mg/dL (0.55-1.3); PHOSPHOROUS 5.4 mg/dL (2.5-4.9); SGOT/AST 10 U/L (15-37); SGPT/ALT 9 U/L (13-61)
[2024-05-09 08:06] LABS: BILIRUBIN,TOTAL 0.3 mg/dL (0.2-1)
[2024-05-09 08:12] LABS: ALK PHOS 72 U/L (45-117)
[2024-05-09 08:13] LABS: CALCIUM 6.6 mg/dL (8.5-10.1)
[2024-05-09] MEDS ORDERED: CALCIUM GLUC IN NACL, ISO-OSM 1 GM/50 ML BAG IVPB ONE (09:03)
[2024-05-09 10:11] LABS: PARATHYROID HORM INTACT 488 pg/mL (15-65)
[2024-05-09] MEDS: CALCIUM GLUC IN NACL, ISO-OSM 1 GM/50 ML BAG IVPB ONE (10:44)
[2024-05-09] MEDS: CALCIUM GLUCONATE IN NACL 1 GM/50 ML BAG IVPB ONE (12:09)
[2024-05-09] MEDS: CALCIUM 500MG/VIT-D 200 UNITS COMBO TABLET (FP) PO SCH (17:26)
[2024-05-09] MEDS: CALCITRIOL 0.25 MCG CAPSULE (FP) PO SCH (17:27)
[2024-05-09] MEDS: SODIUM CHLORIDE 0.45% 1,000 ML IV SCH (17:49)
[2024-05-09] MEDS: hydrALAZINE HCL 25 MG TABLET (FP) PO SCH (22:19)
[2024-05-09] MEDS: SODIUM BICARBONATE 650 MG TABLET PO SCH (22:19)
[2024-05-10 08:13] LABS: POTASSIUM 3.8 mmol/L (3.5-5.1)
[2024-05-10 08:21] LABS: ALBUMIN 3.4 g/dl (3.4-5.0); BLOOD UREA NITROGEN 85.3 mg/dL (7-18); CALCIUM 7.5 mg/dL (8.5-10.1)
[2024-05-10 08:24] LABS: CREATININE 5.9 mg/dL (0.55-1.3)
[2024-05-10 08:26] LABS: BILIRUBIN,TOTAL 0.5 mg/dL (0.2-1); TOT PROT 6.3 g/dl (6.4-8.2)
[2024-05-10 08:27] LABS: BASO % 0.6 % (0-2.0); HEMATOCRIT 21.4 % (32.4-45.2); HEMOGLOBIN 7.1 GM/dL (10.7-15.3); MCH 27.8 pg (25.7-33.7); MCHC 33.3 g/dl (32.0-36.0); MEAN CELL VOLUME 83.3 fl (80-96); MEAN PLT VOLUME 5.9 fl (7.5-11.1); MONO % 4.5 % (3.8-10.2); NEUT % 85.9 % (42.8-82.8); PLATELET COUNT 285 10^3/uL (134-434); RBC 2.57 M/mm3 (3.60-5.2); RDW 17.6 % (11.6-15.6); WHITE BLOOD COUNT 6.2 K/mm3 (4.0-10.0)
[2024-05-10] MEDS: SODIUM ZIRCONIUM CYCLOSILICATE (LOKELMA) 5 GM PACKET PO SCH (11:38)
[2024-05-10] MEDS: hydrALAZINE HCL 20 MG/ML VIAL IVPUSH PRN (18:19)
[2024-05-11 08:05] LABS: POTASSIUM 3.4 mmol/L (3.5-5.1)
[2024-05-11 08:11] LABS: BLOOD UREA NITROGEN 80.9 mg/dL (7-18)
[2024-05-11 08:14] LABS: CREATININE 5.8 mg/dL (0.55-1.3)
[2024-05-11 08:15] LABS: BILIRUBIN,TOTAL 0.3 mg/dL (0.2-1)
[2024-05-11 08:16] LABS: BASO % 0.4 % (0-2.0); EOS % 2.3 % (0-4.5); HEMATOCRIT 20.3 % (32.4-45.2); LYMPH % 7.6 % (8-40); MCH 27.4 pg (25.7-33.7); MCHC 33.6 g/dl (32.0-36.0); MEAN CELL VOLUME 81.7 fl (80-96); MEAN PLT VOLUME 6.2 fl (7.5-11.1); MONO % 6.1 % (3.8-10.2); NEUT % 83.6 % (42.8-82.8); PLATELET COUNT 304 10^3/uL (134-434); RBC 2.48 M/mm3 (3.60-5.2); RDW 17.8 % (11.6-15.6); WHITE BLOOD COUNT 4.8 K/mm3 (4.0-10.0)
[2024-05-11 08:41] LABS: HEMOGLOBIN 6.8 GM/dL (10.7-15.3)
[2024-05-11] MEDS: POTASSIUM CHLORIDE TABS 10 MEQ TABLET.ER (FP) PO ONE (19:15)
[2024-05-12 08:00] LABS: CHLORIDE 107 mmol/L (98-107); SODIUM 135 mmol/L (136-145)
[2024-05-12 08:05] LABS: GLUCOSE,RANDOM 82 mg/dL (74-106)
[2024-05-12 08:07] LABS: ALBUMIN 2.8 g/dl (3.4-5.0); ANION GAP 13 mmol/L (4-13); BLOOD UREA NITROGEN 81.5 mg/dL (7-18); CO2 14 mmol/L (21-32)
[2024-05-12 08:10] LABS: CREATININE 5.6 mg/dL (0.55-1.3); PHOSPHOROUS 5.2 mg/dL (2.5-4.9); SGOT/AST 9 U/L (15-37); SGPT/ALT 9 U/L (13-61)
[2024-05-12 08:11] LABS: BILIRUBIN,TOTAL 0.3 mg/dL (0.2-1); TOT PROT 5.5 g/dl (6.4-8.2)
[2024-05-12 08:12] LABS: ALK PHOS 69 U/L (45-117)
[2024-05-12 08:27] LABS: CALCIUM 6.5 mg/dL (8.5-10.1)
[2024-05-12 08:37] LABS: BASO % 0.4 % (0-2.0); EOS % 2.4 % (0-4.5); HEMATOCRIT 19.4 % (32.4-45.2); LYMPH % 7.3 % (8-40); MCHC 32.6 g/dl (32.0-36.0); MEAN CELL VOLUME 82.7 fl (80-96); MEAN PLT VOLUME 6.2 fl (7.5-11.1); MONO % 7.1 % (3.8-10.2); NEUT % 82.8 % (42.8-82.8); PLATELET COUNT 275 10^3/uL (134-434); RBC 2.34 M/mm3 (3.60-5.2); RDW 17.6 % (11.6-15.6); WHITE BLOOD COUNT 5.7 K/mm3 (4.0-10.0)
[2024-05-12 08:40] LABS: HEMOGLOBIN 6.3 GM/dL (10.7-15.3)
[2024-05-12] MEDS: CALCIUM GLUCONATE IN NACL 1 GM/50 ML BAG IVPB ONE (10:55)
[2024-05-12] MEDS ORDERED: FUROSEMIDE 40 MG/4 ML INJECTABLE VIAL IVPUSH SCH (12:52)
[2024-05-12] MEDS: FUROSEMIDE 40 MG/4 ML INJECTABLE VIAL IVPUSH SCH (20:57)
[2024-05-13] MEDS: IRON SUCROSE INJECTION 100 MG in SODIUM CHLORIDE 95 ML IVPB ONE (00:55)
[2024-05-13] MEDS: CALCIUM GLUCONATE IN NACL 1 GM/50 ML BAG IVPB ONE (05:19)
[2024-05-13 07:18] LABS: BASO % 0.4 % (0-2.0); EOS % 2.2 % (0-4.5); HEMATOCRIT 27.6 % (32.4-45.2); HEMOGLOBIN 9.3 GM/dL (10.7-15.3); LYMPH % 3.6 % (8-40); MCH 28.4 pg (25.7-33.7); MCHC 33.9 g/dl (32.0-36.0); MEAN CELL VOLUME 83.9 fl (80-96); MEAN PLT VOLUME 6.1 fl (7.5-11.1); MONO % 5.7 % (3.8-10.2); NEUT % 88.1 % (42.8-82.8); PLATELET COUNT 264 10^3/uL (134-434); RBC 3.28 M/mm3 (3.60-5.2); WHITE BLOOD COUNT 8.5 K/mm3 (4.0-10.0)
[2024-05-13 07:27] LABS: POTASSIUM 3.4 mmol/L (3.5-5.1)
[2024-05-13 07:32] LABS: CALCIUM 7.2 mg/dL (8.5-10.1)
[2024-05-13 07:33] LABS: ALBUMIN 3.1 g/dl (3.4-5.0); BLOOD UREA NITROGEN 82.9 mg/dL (7-18); MAGNESIUM 2.1 mg/dL (1.8-2.4)
[2024-05-13 07:36] LABS: CREATININE 5.7 mg/dL (0.55-1.3)
[2024-05-13 07:37] LABS: BILIRUBIN,TOTAL 0.6 mg/dL (0.2-1); TOT PROT 5.9 g/dl (6.4-8.2)
[2024-05-13] MEDS: hydrALAZINE HCL 50 MG TABLET (FP) PO SCH (14:03)
[2024-05-13 19:51] LABS: EPI CELLS 26 /uL (0-25.1); HYALINE CASTS 6 /uL (0-3.1); PH,URINE 5.5 (5.0-8.0); URINE APPEARANCE Error; URINE BACTERIA 3674 /uL (0-1359); URINE BILIRUBIN NEGATIVE (NEGATIVE); URINE COLOR YELLOW; URINE GLUCOSE (UA) NEGATIVE (NEGATIVE); URINE KETONE TRACE (NEGATIVE); URINE LEUK ESTERASE 3+ (NEGATIVE); URINE NITRITE NEGATIVE (NEGATIVE); URINE PROTEIN 2+ (NEGATIVE); URINE UROBILINOGEN 0.2 mg/dL (0.2-1.0); URINE WBC 45482 /uL (0-25.8)
[2024-05-13] MEDS: POTASSIUM CHLORIDE ORAL LIQUID 20 MEQ/15 ML PO ONE (20:07)
[2024-05-13 21:45] LABS: URINE RBC 479.1 /uL (0-23.9); YEAST NONE SEEN (NEGATIVE)
[2024-05-14 09:13] LABS: HEMATOCRIT 28.4 % (32.4-45.2); HEMOGLOBIN 9.6 GM/dL (10.7-15.3); MCH 28.3 pg (25.7-33.7); MCHC 33.8 g/dl (32.0-36.0); MEAN CELL VOLUME 83.7 fl (80-96); MEAN PLT VOLUME 6.5 fl (7.5-11.1); PLATELET COUNT 295 10^3/uL (134-434); RBC 3.39 M/mm3 (3.60-5.2); RDW 17.6 % (11.6-15.6); WHITE BLOOD COUNT 8.4 K/mm3 (4.0-10.0)
[2024-05-14 09:44] LABS: POTASSIUM 3.8 mmol/L (3.5-5.1)
[2024-05-14 09:55] LABS: BLOOD UREA NITROGEN 85.8 mg/dL (7-18); CALCIUM 7.6 mg/dL (8.5-10.1); MAGNESIUM 2.2 mg/dL (1.8-2.4); TOT PROT 6.2 g/dl (6.4-8.2)
[2024-05-14 09:56] LABS: BILIRUBIN,TOTAL 0.4 mg/dL (0.2-1)
[2024-05-14 09:57] LABS: PHOSPHOROUS 5.3 mg/dL (2.5-4.9)
[2024-05-14 09:59] LABS: CREATININE 5.6 mg/dL (0.55-1.3)
[2024-05-14] MEDS: EPOETIN ALFA-EPBX 10,000 UNIT/ML VIAL SQ ONE ×2 (14:00→21:47)
[2024-05-14] MEDS: IRON SUCROSE INJECTION 100 MG in SODIUM CHLORIDE 95 ML IVPB ONE (14:34)
[2024-05-14] MEDS ORDERED: hydrALAZINE HCL 20 MG/ML VIAL IVPUSH PRN (19:56)
[2024-05-14] MEDS: SODIUM BICARBONATE 650 MG TABLET PO SCH (21:47)
[2024-05-15 08:32] LABS: INR 1.04 (0.83-1.09); PROTHROMBIN TIME (PATIENT) 11.9 SEC (9.7-13.0)
[2024-05-15 08:38] LABS: HEMATOCRIT 26.4 % (32.4-45.2); HEMOGLOBIN 8.8 GM/dL (10.7-15.3); MCHC 33.4 g/dl (32.0-36.0); MEAN CELL VOLUME 83.8 fl (80-96); MEAN PLT VOLUME 6.1 fl (7.5-11.1); PLATELET COUNT 272 10^3/uL (134-434); RBC 3.15 M/mm3 (3.60-5.2); RDW 17.2 % (11.6-15.6); WHITE BLOOD COUNT 8.6 K/mm3 (4.0-10.0)
[2024-05-15 08:55] LABS: POTASSIUM 3.5 mmol/L (3.5-5.1)
[2024-05-15 08:59] LABS: CALCIUM 7.2 mg/dL (8.5-10.1)
[2024-05-15 09:01] LABS: ALBUMIN 2.8 g/dl (3.4-5.0); BLOOD UREA NITROGEN 92.4 mg/dL (7-18); MAGNESIUM 2.1 mg/dL (1.8-2.4)
[2024-05-15 09:03] LABS: CREATININE 5.9 mg/dL (0.55-1.3); PHOSPHOROUS 4.9 mg/dL (2.5-4.9)
[2024-05-15 09:05] LABS: TOT PROT 5.6 g/dl (6.4-8.2)
[2024-05-15 09:06] LABS: BILIRUBIN,TOTAL 0.4 mg/dL (0.2-1)
[2024-05-15] MEDS: CALCIUM ACETATE 667 MG CAPSULE (FP) PO SCH (09:17)
[2024-05-15] MEDS: CALCITRIOL 0.25 MCG CAPSULE (FP) PO SCH (09:18)
[2024-05-15] MEDS: ASPIRIN COATED 81 MG TABLET.EC PO SCH (09:18)
[2024-05-15] MEDS: CALCIUM 500MG/VIT-D 200 UNITS COMBO TABLET (FP) PO SCH (09:18)
[2024-05-15] MEDS: amLODIPine BESYLATE 10 MG TABLET (FP) PO SCH (09:18)
[2024-05-15] MEDS: FERROUS GLUCONATE 324 MG TAB (FP) PO SCH (09:19)
[2024-05-15] MEDS ORDERED: SODIUM CHLORIDE 250 ML IV PRN ×2 (15:47→18:14)
[2024-05-15] MEDS ORDERED: LIDOCAINE HCL 1%, 10 MG/ML (20ML VIAL) ONE (16:04)
[2024-05-15] MEDS ORDERED: MIDAZOLAM HCL 2 MG/2 ML SINGLE DOSE VIAL ONE ×2 (16:41→17:43)
[2024-05-15] MEDS: ceFAZolin SODIUM 1 GM VIAL IVPB ONE (17:40)
[2024-05-15] MEDS: LIDOCAINE HCL 1%, 10 MG/ML (20ML VIAL) INF ONE (18:08)
[2024-05-15] MEDS: SODIUM BICARBONATE 650 MG TABLET PO SCH (21:38)
[2024-05-15] MEDS: hydrALAZINE HCL 50 MG TABLET (FP) PO SCH (21:38)
[2024-05-16] MEDS: oxyCODONE HCL 5 MG TABLET PO PRN (09:11)
[2024-05-16] MEDS: ASPIRIN COATED 81 MG TABLET.EC PO SCH (09:14)
[2024-05-16] MEDS: FERROUS GLUCONATE 324 MG TAB (FP) PO SCH (09:14)
[2024-05-16] MEDS: amLODIPine BESYLATE 10 MG TABLET (FP) PO SCH (09:15)
[2024-05-16] MEDS: CALCIUM 500MG/VIT-D 200 UNITS COMBO TABLET (FP) PO SCH (09:15)
[2024-05-16] MEDS: CALCITRIOL 0.25 MCG CAPSULE (FP) PO SCH (09:15)
[2024-05-16] MEDS: CALCIUM ACETATE 667 MG CAPSULE (FP) PO SCH (09:15)
[2024-05-16 09:35] LABS: HEMATOCRIT 26.1 % (32.4-45.2); HEMOGLOBIN 8.7 GM/dL (10.7-15.3); MCH 27.8 pg (25.7-33.7); MCHC 33.4 g/dl (32.0-36.0); MEAN CELL VOLUME 83.3 fl (80-96); MEAN PLT VOLUME 6.3 fl (7.5-11.1); PLATELET COUNT 287 10^3/uL (134-434); RBC 3.13 M/mm3 (3.60-5.2); RDW 17.7 % (11.6-15.6); WHITE BLOOD COUNT 8.2 K/mm3 (4.0-10.0)
[2024-05-16 10:05] LABS: POTASSIUM 3.7 mmol/L (3.5-5.1)
[2024-05-16 10:10] LABS: CALCIUM 7.3 mg/dL (8.5-10.1)
[2024-05-16 10:11] LABS: BLOOD UREA NITROGEN 96.1 mg/dL (7-18)
[2024-05-16 10:13] LABS: CREATININE 6.5 mg/dL (0.55-1.3)
[2024-05-16 10:15] LABS: BILIRUBIN,TOTAL 0.4 mg/dL (0.2-1); TOT PROT 5.9 g/dl (6.4-8.2)
[2024-05-16] MEDS: ACETAMINOPHEN 325 MG TABLET (FP) PO ONE (11:32)
[2024-05-17] MEDS: ONDANSETRON 4 MG/2 ML VIAL IVPB ONE (06:40)
[2024-05-17] MEDS ORDERED: SODIUM CHLORIDE 250 ML IV PRN (14:53)
[2024-05-17 15:31] LABS: HEMOGLOBIN 8.4 GM/dL (10.7-15.3); MCH 28.3 pg (25.7-33.7); MCHC 33.7 g/dl (32.0-36.0); MEAN PLT VOLUME 5.9 fl (7.5-11.1); PLATELET COUNT 282 10^3/uL (134-434); RBC 2.97 M/mm3 (3.60-5.2); RDW 17.3 % (11.6-15.6); WHITE BLOOD COUNT 6.3 K/mm3 (4.0-10.0)
[2024-05-17 15:49] LABS: POTASSIUM 3.3 mmol/L (3.5-5.1)
[2024-05-17 15:51] LABS: CALCIUM 7.8 mg/dL (8.5-10.1)
[2024-05-17 15:52] LABS: ALBUMIN 2.9 g/dl (3.4-5.0)
[2024-05-17 15:55] LABS: CREATININE 3.4 mg/dL (0.55-1.3)
[2024-05-17 15:56] LABS: BILIRUBIN,TOTAL 0.4 mg/dL (0.2-1); TOT PROT 5.8 g/dl (6.4-8.2)
[2024-05-17] MEDS: EPOETIN ALFA-EPBX 10,000 UNIT/ML VIAL SQ ONE (16:00)
[2024-05-17] MEDS: hydrALAZINE HCL 20 MG/ML VIAL IVPUSH PRN (17:16)
[2024-05-17] MEDS: POTASSIUM CHLORIDE ORAL LIQUID 20 MEQ/15 ML PO ONE (17:16)
[2024-05-18] MEDS: ONDANSETRON 4 MG/2 ML VIAL IVPUSH PRN (09:11)
[2024-05-18] MEDS: VITAMIN B COMP W-C 1 EA TABLET (NEPHRO-VITE) PO SCH (09:22)
[2024-05-18 09:39] LABS: HEMATOCRIT 27.6 % (32.4-45.2); HEMOGLOBIN 9.2 GM/dL (10.7-15.3); MCH 28.2 pg (25.7-33.7); MCHC 33.5 g/dl (32.0-36.0); MEAN CELL VOLUME 84.2 fl (80-96); PLATELET COUNT 309 10^3/uL (134-434); RBC 3.27 M/mm3 (3.60-5.2); RDW 17.5 % (11.6-15.6); WHITE BLOOD COUNT 6.6 K/mm3 (4.0-10.0)
[2024-05-18 09:40] LABS: MEAN PLT VOLUME 5.8 fl (7.5-11.1)
[2024-05-18 09:51] LABS: CHLORIDE 104 mmol/L (98-107); SODIUM 136 mmol/L (136-145)
[2024-05-18 09:59] LABS: ANION GAP 7 mmol/L (4-13); CO2 25 mmol/L (21-32)
[2024-05-18 10:01] LABS: ALBUMIN 2.9 g/dl (3.4-5.0); BLOOD UREA NITROGEN 29.9 mg/dL (7-18); GLUCOSE,RANDOM 72 mg/dL (74-106)
[2024-05-18 10:02] LABS: SGPT/ALT < 6 U/L (13-61)
[2024-05-18 10:03] LABS: CREATININE 2.9 mg/dL (0.55-1.3); SGOT/AST 14 U/L (15-37)
[2024-05-18 10:04] LABS: BILIRUBIN,TOTAL 0.5 mg/dL (0.2-1); TOT PROT 5.9 g/dl (6.4-8.2)
[2024-05-18 10:05] LABS: ALK PHOS 72 U/L (45-117)
[2024-05-18] MEDS: amLODIPine BESYLATE 10 MG TABLET (FP) PO ONE (17:53)
[2024-05-18] MEDS: ACETAMINOPHEN 1000 MG/100 ML BAG IVPB ONE (20:12)
[2024-05-18] MEDS: hydrALAZINE HCL 50 MG TABLET (FP) PO SCH (21:36)
[2024-05-19 08:59] LABS: HEMATOCRIT 28.1 % (32.4-45.2); HEMOGLOBIN 9.3 GM/dL (10.7-15.3); MCH 27.6 pg (25.7-33.7); MEAN CELL VOLUME 83.8 fl (80-96); PLATELET COUNT 305 10^3/uL (134-434); RBC 3.36 M/mm3 (3.60-5.2); RDW 17.8 % (11.6-15.6); WHITE BLOOD COUNT 6.1 K/mm3 (4.0-10.0)
[2024-05-19 09:06] LABS: MEAN PLT VOLUME 5.7 fl (7.5-11.1)
[2024-05-19 09:10] LABS: POTASSIUM 4.1 mmol/L (3.5-5.1)
[2024-05-19 09:27] LABS: MAGNESIUM 1.9 mg/dL (1.8-2.4)
[2024-05-19 09:29] LABS: ALBUMIN 2.8 g/dl (3.4-5.0); BLOOD UREA NITROGEN 31.7 mg/dL (7-18); PHOSPHOROUS 2.4 mg/dL (2.5-4.9)
[2024-05-19 09:30] LABS: CREATININE 3.2 mg/dL (0.55-1.3); TOT PROT 5.7 g/dl (6.4-8.2)
[2024-05-19 09:31] LABS: BILIRUBIN,TOTAL 0.4 mg/dL (0.2-1)
[2024-05-19] MEDS: LOSARTAN POTASSIUM 50 MG TABLET PO SCH (11:37)
[2024-05-19] MEDS ORDERED: LIDOCAINE HCL 1%, 10 MG/ML (20ML VIAL) ONE (12:42)
[2024-05-19] MEDS ORDERED: PAPAVERINE HCL 30 MG/1 ML 10 ML VIAL NR ONE (12:43)
[2024-05-19] MEDS ORDERED: HEPARIN NA (PORCINE) 5,000 UNITS/ML 1ML VIAL ONE ×2 (12:43→12:59)
[2024-05-19] MEDS ORDERED: POVIDONE-IODINE OINTMENT 10% - 28.4 GM TUBE ONE (12:44)
[2024-05-19] MEDS ORDERED: ROPIVACAINE HCL 0.5% 30ML VIAL ONE (14:14)
[2024-05-19] MEDS: ceFAZolin SODIUM 1 GM VIAL IVPB ONE (14:35)
[2024-05-19] MEDS ORDERED: SODIUM CHLORIDE 250 ML IV PRN ×2 (14:49→16:22)
[2024-05-19] MEDS: LIDOCAINE HCL 0.5% EPINEPHRINE 1:200,000 50 ML VIAL IJ ONE ×2 (15:16)
[2024-05-19] MEDS: POVIDONE-IODINE OINTMENT 10% - 28.4 GM TUBE TP ONE (15:17)
[2024-05-19] MEDS ORDERED: PROPOFOL 20 ML ONE (15:25)
[2024-05-19] MEDS ORDERED: hydrALAZINE HCL 20 MG/ML VIAL IVPUSH PRN (16:22)
[2024-05-19] MEDS ORDERED: ONDANSETRON 4 MG/2 ML VIAL IVPUSH PRN (16:22)
[2024-05-19] MEDS: CALCIUM ACETATE 667 MG CAPSULE (FP) PO SCH (17:32)
[2024-05-19] MEDS: hydrALAZINE HCL 25 MG TABLET (FP) PO SCH (21:22)
[2024-05-20] MEDS: CALCIUM 500MG/VIT-D 200 UNITS COMBO TABLET (FP) PO SCH (10:31)
[2024-05-20] MEDS: ASPIRIN COATED 81 MG TABLET.EC PO SCH (10:36)
[2024-05-20] MEDS: VITAMIN B COMP W-C 1 EA TABLET (NEPHRO-VITE) PO SCH (10:36)
[2024-05-20] MEDS: FERROUS GLUCONATE 324 MG TAB (FP) PO SCH (10:39)
[2024-05-20] MEDS ORDERED: EPOETIN ALFA-EPBX 4,000 UNIT/ML VIAL SQ ONE (14:49)
[2024-05-20] MEDS: EPOETIN ALFA-EPBX 4,000 UNIT/ML VIAL IVPUSH ONE (15:11)
[2024-05-20 15:21] LABS: HEMATOCRIT 27.2 % (32.4-45.2); MCH 28.2 pg (25.7-33.7); MCHC 33.2 g/dl (32.0-36.0); MEAN CELL VOLUME 84.9 fl (80-96); MEAN PLT VOLUME 5.9 fl (7.5-11.1); PLATELET COUNT 301 10^3/uL (134-434); RDW 16.7 % (11.6-15.6); WHITE BLOOD COUNT 9.5 K/mm3 (4.0-10.0)
[2024-05-20 15:31] LABS: CHLORIDE 99 mmol/L (98-107); POTASSIUM 4.3 mmol/L (3.5-5.1); SODIUM 133 mmol/L (136-145)
[2024-05-20 15:35] LABS: CALCIUM 8.1 mg/dL (8.5-10.1)
[2024-05-20 15:36] LABS: ALBUMIN 2.7 g/dl (3.4-5.0); ANION GAP 10 mmol/L (4-13); BLOOD UREA NITROGEN 36.5 mg/dL (7-18); CO2 24 mmol/L (21-32); GLUCOSE,RANDOM 65 mg/dL (74-106); MAGNESIUM 1.7 mg/dL (1.8-2.4)
[2024-05-20 15:39] LABS: CREATININE 3.5 mg/dL (0.55-1.3); PHOSPHOROUS 2.5 mg/dL (2.5-4.9); SGOT/AST 13 U/L (15-37); SGPT/ALT < 6 U/L (13-61)
[2024-05-20 15:40] LABS: BILIRUBIN,TOTAL 0.4 mg/dL (0.2-1); TOT PROT 5.6 g/dl (6.4-8.2)
[2024-05-20 15:41] LABS: ALK PHOS 66 U/L (45-117)
[2024-05-20] MEDS: LOSARTAN POTASSIUM 50 MG TABLET PO SCH (16:57)
[2024-05-20] MEDS: CALCITRIOL 0.25 MCG CAPSULE (FP) PO SCH (16:58)
[2024-05-20] MEDS: amLODIPine BESYLATE 10 MG TABLET (FP) PO SCH (16:58)
[2024-05-20] MEDS: AMOXICILLIN 500 MG CAPSULE (FP) PO SCH (17:17)
[2024-05-21 08:29] LABS: CHLORIDE 100 mmol/L (98-107); POTASSIUM 3.6 mmol/L (3.5-5.1); SODIUM 136 mmol/L (136-145)
[2024-05-21 08:43] LABS: HEMOGLOBIN 8.9 GM/dL (10.7-15.3); MCH 28.1 pg (25.7-33.7); MEAN CELL VOLUME 85.1 fl (80-96); PLATELET COUNT 278 10^3/uL (134-434); RBC 3.18 M/mm3 (3.60-5.2); RDW 16.6 % (11.6-15.6); WHITE BLOOD COUNT 8.3 K/mm3 (4.0-10.0)
[2024-05-21 08:46] LABS: MEAN PLT VOLUME 5.6 fl (7.5-11.1)
[2024-05-21 08:51] LABS: BLOOD UREA NITROGEN 17.7 mg/dL (7-18); CALCIUM 8.7 mg/dL (8.5-10.1)
[2024-05-21 08:52] LABS: ALBUMIN 2.7 g/dl (3.4-5.0); ANION GAP 6 mmol/L (4-13); CO2 30 mmol/L (21-32); GLUCOSE,RANDOM 86 mg/dL (74-106)
[2024-05-21 08:55] LABS: CREATININE 2.2 mg/dL (0.55-1.3); SGOT/AST 13 U/L (15-37); SGPT/ALT < 6 U/L (13-61)
[2024-05-21 08:56] LABS: TOT PROT 5.4 g/dl (6.4-8.2)
[2024-05-21 08:58] LABS: ALK PHOS 64 U/L (45-117); BILIRUBIN,TOTAL 0.5 mg/dL (0.2-1)
[2024-05-22] MEDS ORDERED: SODIUM CHLORIDE 250 ML IV PRN (10:00)
[2024-05-22] MEDS: EPOETIN ALFA-EPBX 4,000 UNIT/ML VIAL SQ ONE (14:14)
[2024-05-22 14:23] LABS: HEMOGLOBIN 8.9 GM/dL (10.7-15.3); MCH 27.9 pg (25.7-33.7); MCHC 33.1 g/dl (32.0-36.0); MEAN CELL VOLUME 84.2 fl (80-96); PLATELET COUNT 258 10^3/uL (134-434); RDW 16.7 % (11.6-15.6); WHITE BLOOD COUNT 7.1 K/mm3 (4.0-10.0)
[2024-05-22 14:24] LABS: MEAN PLT VOLUME 5.8 fl (7.5-11.1)
[2024-05-22 14:50] LABS: CHLORIDE 101 mmol/L (98-107); POTASSIUM 3.6 mmol/L (3.5-5.1); SODIUM 137 mmol/L (136-145)
[2024-05-22 14:52] LABS: CALCIUM 8.7 mg/dL (8.5-10.1)
[2024-05-22 14:53] LABS: ALBUMIN 2.6 g/dl (3.4-5.0); ANION GAP 4 mmol/L (4-13); BLOOD UREA NITROGEN 22.8 mg/dL (7-18); CO2 32 mmol/L (21-32)
[2024-05-22 14:56] LABS: CREATININE 2.9 mg/dL (0.55-1.3); SGOT/AST 12 U/L (15-37); SGPT/ALT < 6 U/L (13-61)
[2024-05-22 14:57] LABS: BILIRUBIN,TOTAL 0.3 mg/dL (0.2-1); TOT PROT 5.4 g/dl (6.4-8.2)
[2024-05-22 14:59] LABS: ALK PHOS 69 U/L (45-117)
[2024-05-22 15:22] LABS: GLUCOSE,RANDOM 142 mg/dL (74-106)
[2024-05-23 09:24] LABS: HEMATOCRIT 28.2 % (32.4-45.2); HEMOGLOBIN 9.2 GM/dL (10.7-15.3); MCHC 32.7 g/dl (32.0-36.0); MEAN CELL VOLUME 85.8 fl (80-96); PLATELET COUNT 231 10^3/uL (134-434); RBC 3.28 M/mm3 (3.60-5.2); RDW 16.8 % (11.6-15.6); WHITE BLOOD COUNT 6.8 K/mm3 (4.0-10.0)
[2024-05-23 09:25] LABS: MEAN PLT VOLUME 5.8 fl (7.5-11.1)
[2024-05-23 09:45] LABS: CHLORIDE 102 mmol/L (98-107); POTASSIUM 3.5 mmol/L (3.5-5.1); SODIUM 139 mmol/L (136-145)
[2024-05-23 09:57] LABS: ALBUMIN 2.7 g/dl (3.4-5.0); ANION GAP 5 mmol/L (4-13); BLOOD UREA NITROGEN 12.1 mg/dL (7-18); CALCIUM 8.5 mg/dL (8.5-10.1); CO2 33 mmol/L (21-32); GLUCOSE,RANDOM 94 mg/dL (74-106)
[2024-05-23 09:58] LABS: MAGNESIUM 1.5 mg/dL (1.8-2.4)
[2024-05-23 09:59] LABS: SGPT/ALT 6 U/L (13-61)
[2024-05-23 10:00] LABS: CREATININE 1.9 mg/dL (0.55-1.3); SGOT/AST 12 U/L (15-37)
[2024-05-23 10:01] LABS: BILIRUBIN,TOTAL 0.4 mg/dL (0.2-1); TOT PROT 5.7 g/dl (6.4-8.2)
[2024-05-23 10:02] LABS: ALK PHOS 66 U/L (45-117)
[2024-05-23] MEDS ORDERED: POTASSIUM PHOSPHATE 30 MM in SODIUM CHLORIDE 500 ML IVPB ONE (10:48)
[2024-05-23] MEDS: NAPH,MB-DB/K PH,MBDB POWDER PACKET PO ONE ×2 (11:39→19:42)
[2024-05-23] MEDS ORDERED: SODIUM CHLORIDE 250 ML IV PRN (12:24)
[2024-05-23] MEDS: MAGNESIUM OXIDE 400 MG TABLET (FP) PO ONE (17:39)
[2024-05-24] MEDS: NAPH,MB-DB/K PH,MBDB POWDER PACKET PO ONE ×2 (05:47→15:24)
[2024-05-24] MEDS: MAGNESIUM SULF 50% (8.12 MEQ/2 ML-1 GM VIAL) IVPB ONE (05:50)
[2024-05-24] MEDS: MAGNESIUM OXIDE 400 MG TABLET (FP) PO ONE (06:10)
[2024-05-24 09:26] LABS: HEMATOCRIT 27.1 % (32.4-45.2); HEMOGLOBIN 8.9 GM/dL (10.7-15.3); MCH 28.2 pg (25.7-33.7); MCHC 32.8 g/dl (32.0-36.0); PLATELET COUNT 207 10^3/uL (134-434); RBC 3.15 M/mm3 (3.60-5.2); RDW 17.4 % (11.6-15.6); WHITE BLOOD COUNT 8.7 K/mm3 (4.0-10.0)
[2024-05-24 09:56] LABS: CHLORIDE 102 mmol/L (98-107); POTASSIUM 3.5 mmol/L (3.5-5.1); SODIUM 139 mmol/L (136-145)
[2024-05-24 09:57] LABS: CALCIUM 8.5 mg/dL (8.5-10.1)
[2024-05-24 09:58] LABS: ANION GAP 3 mmol/L (4-13); BLOOD UREA NITROGEN 14.1 mg/dL (7-18); CO2 34 mmol/L (21-32); GLUCOSE,RANDOM 99 mg/dL (74-106)
[2024-05-24 10:01] LABS: CREATININE 2.3 mg/dL (0.55-1.3)
[2024-05-24] MEDS: EPOETIN ALFA-EPBX 10,000 UNIT/ML VIAL IVPUSH ONE (11:18)
[2024-05-24 15:02] LABS: MAGNESIUM 1.6 mg/dL (1.8-2.4)
[2024-05-24 21:24] LABS: PHOSPHOROUS 0.9 mg/dL (2.5-4.9)
[2024-05-24] MEDS: MAGNESIUM OXIDE 400 MG TABLET (FP) PO SCH (21:24)
[2024-05-24] MEDS: hydrALAZINE HCL 25 MG TABLET (FP) PO SCH (21:25)
[2024-05-24] MEDS: NAPH,MB-DB/K PH,MBDB POWDER PACKET PO SCH (21:51)
[2024-05-25 07:42] LABS: MAGNESIUM 1.7 mg/dL (1.8-2.4)
[2024-05-25 07:46] LABS: PHOSPHOROUS 1.5 mg/dL (2.5-4.9)
[2024-05-25] MEDS: MAGNESIUM SULFATE IN WATER 2 GM/50 ML IVPB IVPB ONE (12:03)
[2024-05-25] MEDS: POTASSIUM PHOSPHATE 30 MM in DEXTROSE 5%-WATER - 500 ML IVPB ONE (13:27)
[2024-05-25 13:33] LABS: POTASSIUM 3.9 mmol/L (3.5-5.1)
[2024-05-25] MEDS: hydrALAZINE HCL 50 MG TABLET (FP) PO SCH (14:09)
[2024-05-26 08:51] LABS: POTASSIUM 5.2 mmol/L (3.5-5.1)
[2024-05-26 09:01] LABS: CALCIUM 7.4 mg/dL (8.5-10.1)
[2024-05-26 09:02] LABS: BLOOD UREA NITROGEN 26.2 mg/dL (7-18); MAGNESIUM 2.3 mg/dL (1.8-2.4)
[2024-05-26] MEDS ORDERED: SODIUM CHLORIDE 250 ML IV PRN (13:07)
[2024-05-26] MEDS: POLYETHYLENE GLYCOL (HEALTHYLAX) 3350 17 GM PACKET PO ONE (13:23)
[2024-05-26] MEDS: DOCUSATE SODIUM 100 MG CAPSULE (FP) PO SCH (13:23)
[2024-05-26] MEDS: HEPARIN NA (PORCINE) 5,000 UNITS/ML 1ML VIAL IVPUSH ONE (14:20)
[2024-05-26 15:00] VITALS: RESP 18
[2024-05-26] MEDS: IRON SUCROSE INJECTION 100 MG in SODIUM CHLORIDE 95 ML IVPB ONE ×2 (15:21→17:20)
[2024-05-26] MEDS: EPOETIN ALFA-EPBX 10,000 UNIT/ML VIAL SQ ONE (16:07)
[2024-05-26 22:11] VITALS: BMI 17.6
[2024-05-27 09:37] LABS: HEMATOCRIT 25.5 % (32.4-45.2); HEMOGLOBIN 8.2 GM/dL (10.7-15.3); MCH 27.8 pg (25.7-33.7); MCHC 32.1 g/dl (32.0-36.0); MEAN CELL VOLUME 86.4 fl (80-96); MEAN PLT VOLUME 6.4 fl (7.5-11.1); PLATELET COUNT 231 10^3/uL (134-434); RBC 2.95 M/mm3 (3.60-5.2); RDW 17.9 % (11.6-15.6); WHITE BLOOD COUNT 22.6 K/mm3 (4.0-10.0)
[2024-05-27 09:58] LABS: POTASSIUM 3.7 mmol/L (3.5-5.1)
[2024-05-27 10:12] LABS: ALBUMIN 2.4 g/dl (3.4-5.0); BLOOD UREA NITROGEN 15.2 mg/dL (7-18); MAGNESIUM 1.9 mg/dL (1.8-2.4)
[2024-05-27 10:16] LABS: BILIRUBIN,TOTAL 0.6 mg/dL (0.2-1); TOT PROT 5.3 g/dl (6.4-8.2)
[2024-05-27 10:17] LABS: PHOSPHOROUS 1.3 mg/dL (2.5-4.9)
[2024-05-27 10:55] LABS: ANISOCYTOSIS 0; MACROCYTOSIS 0
[2024-05-27] MEDS: NAPH,MB-DB/K PH,MBDB POWDER PACKET PO SCH (14:39)
[2024-05-27 16:55] LABS: HEMATOCRIT 27.4 % (32.4-45.2); HEMOGLOBIN 8.6 GM/dL (10.7-15.3); MCH 27.1 pg (25.7-33.7); MCHC 31.4 g/dl (32.0-36.0); MEAN CELL VOLUME 86.5 fl (80-96); MEAN PLT VOLUME 6.5 fl (7.5-11.1); PLATELET COUNT 234 10^3/uL (134-434); RBC 3.17 M/mm3 (3.60-5.2); RDW 17.9 % (11.6-15.6)
[2024-05-27 18:28] LABS: ANISOCYTOSIS 2+; MACROCYTOSIS 0
[2024-05-28 08:43] LABS: BASO % 0.4 % (0-2.0); EOS % 0.3 % (0-4.5); HEMATOCRIT 27.9 % (32.4-45.2); HEMOGLOBIN 8.9 GM/dL (10.7-15.3); LYMPH % 2.5 % (8-40); MCH 27.5 pg (25.7-33.7); MCHC 31.9 g/dl (32.0-36.0); MEAN CELL VOLUME 86.4 fl (80-96); MEAN PLT VOLUME 6.6 fl (7.5-11.1); MONO % 7.4 % (3.8-10.2); NEUT % 89.4 % (42.8-82.8); PLATELET COUNT 271 10^3/uL (134-434); RBC 3.23 M/mm3 (3.60-5.2); RDW 17.6 % (11.6-15.6); WHITE BLOOD COUNT 18.8 K/mm3 (4.0-10.0)
[2024-05-28 09:00] LABS: POTASSIUM 4.4 mmol/L (3.5-5.1)
[2024-05-28 09:14] LABS: ALBUMIN 2.5 g/dl (3.4-5.0); BLOOD UREA NITROGEN 25.4 mg/dL (7-18); CALCIUM 7.4 mg/dL (8.5-10.1); MAGNESIUM 2.2 mg/dL (1.8-2.4)
[2024-05-28 09:16] LABS: CREATININE 2.5 mg/dL (0.55-1.3); PHOSPHOROUS 1.9 mg/dL (2.5-4.9)
[2024-05-28 09:17] LABS: BILIRUBIN,TOTAL 0.8 mg/dL (0.2-1); TOT PROT 5.6 g/dl (6.4-8.2)
[2024-05-28] MEDS ORDERED: SODIUM CHLORIDE 250 ML IV PRN (11:57)
[2024-05-28] MEDS: NAPH,MB-DB/K PH,MBDB POWDER PACKET PO SCH (22:02)
[2024-05-29 08:56] LABS: BASO % 0.9 % (0-2.0); EOS % 1.2 % (0-4.5); HEMATOCRIT 27.9 % (32.4-45.2); LYMPH % 4.1 % (8-40); MCH 28.1 pg (25.7-33.7); MCHC 32.2 g/dl (32.0-36.0); MEAN CELL VOLUME 87.3 fl (80-96); MEAN PLT VOLUME 6.8 fl (7.5-11.1); MONO % 6.4 % (3.8-10.2); NEUT % 87.4 % (42.8-82.8); PLATELET COUNT 288 10^3/uL (134-434); RBC 3.19 M/mm3 (3.60-5.2); RDW 17.2 % (11.6-15.6); WHITE BLOOD COUNT 13.1 K/mm3 (4.0-10.0)
[2024-05-29 09:27] LABS: ALBUMIN 2.4 g/dl (3.4-5.0)
[2024-05-29 09:28] LABS: BLOOD UREA NITROGEN 33.3 mg/dL (7-18); CALCIUM 7.7 mg/dL (8.5-10.1)
[2024-05-29 09:30] LABS: PHOSPHOROUS 2.7 mg/dL (2.5-4.9)
[2024-05-29 09:32] LABS: BILIRUBIN,TOTAL 0.5 mg/dL (0.2-1); TOT PROT 5.3 g/dl (6.4-8.2)
[2024-05-29] MEDS: EPOETIN ALFA-EPBX 10,000 UNIT/ML VIAL IVPUSH ONE (10:05)
[2024-05-29] MEDS: CEFTRIAXONE 1 GM in DEXTROSE 5%-WATER - 50 ML IVPB SCH (13:46)
[2024-05-30 08:43] LABS: BASO % 0.7 % (0-2.0); EOS % 2.4 % (0-4.5); HEMATOCRIT 28.4 % (32.4-45.2); HEMOGLOBIN 9.1 GM/dL (10.7-15.3); LYMPH % 5.9 % (8-40); MCH 27.8 pg (25.7-33.7); MCHC 32.1 g/dl (32.0-36.0); MEAN CELL VOLUME 86.8 fl (80-96); MEAN PLT VOLUME 6.4 fl (7.5-11.1); MONO % 7.5 % (3.8-10.2); NEUT % 83.5 % (42.8-82.8); PLATELET COUNT 278 10^3/uL (134-434); RBC 3.27 M/mm3 (3.60-5.2); RDW 17.1 % (11.6-15.6); WHITE BLOOD COUNT 6.9 K/mm3 (4.0-10.0)
[2024-05-30 09:16] LABS: POTASSIUM 4.2 mmol/L (3.5-5.1)
[2024-05-30 09:18] LABS: CALCIUM 8.3 mg/dL (8.5-10.1)
[2024-05-30 09:19] LABS: BLOOD UREA NITROGEN 18.8 mg/dL (7-18)
[2024-05-30 09:22] LABS: CREATININE 1.8 mg/dL (0.55-1.3)
[2024-05-30] MEDS: LACTOBACILLUS ACIDOPHILUS 1 TABLET PO SCH (10:27)
[2024-05-31 09:51] LABS: BASO % 0.9 % (0-2.0); EOS % 3.9 % (0-4.5); HEMATOCRIT 28.3 % (32.4-45.2); LYMPH % 7.4 % (8-40); MCH 27.4 pg (25.7-33.7); MCHC 31.8 g/dl (32.0-36.0); MEAN CELL VOLUME 86.4 fl (80-96); MONO % 7.6 % (3.8-10.2); NEUT % 80.2 % (42.8-82.8); PLATELET COUNT 280 10^3/uL (134-434); RBC 3.28 M/mm3 (3.60-5.2); RDW 16.7 % (11.6-15.6); WHITE BLOOD COUNT 5.8 K/mm3 (4.0-10.0)
[2024-05-31 10:07] LABS: CHLORIDE 103 mmol/L (98-107); SODIUM 138 mmol/L (136-145)
[2024-05-31 10:11] LABS: ALBUMIN 2.5 g/dl (3.4-5.0); ANION GAP 4 mmol/L (4-13); BLOOD UREA NITROGEN 24.5 mg/dL (7-18); CALCIUM 8.2 mg/dL (8.5-10.1); CO2 31 mmol/L (21-32)
[2024-05-31 10:12] LABS: GLUCOSE,RANDOM 130 mg/dL (74-106)
[2024-05-31 10:14] LABS: PHOSPHOROUS 1.5 mg/dL (2.5-4.9); SGPT/ALT < 6 U/L (13-61)
[2024-05-31 10:15] LABS: CREATININE 2.5 mg/dL (0.55-1.3); SGOT/AST 8 U/L (15-37)
[2024-05-31 10:16] LABS: BILIRUBIN,TOTAL 0.4 mg/dL (0.2-1); TOT PROT 5.1 g/dl (6.4-8.2)
[2024-05-31 10:17] LABS: ALK PHOS 70 U/L (45-117)
[2024-05-31] MEDS ORDERED: SODIUM CHLORIDE 250 ML IV PRN (10:32)
[2024-05-31] MEDS: EPOETIN ALFA-EPBX 10,000 UNIT/ML VIAL SQ ONE (11:35)
[2024-06-01 14:25] VITALS: BP 144/59; PULSE 75; TEMP 98.3
== END 2024-06-01 17:24 | disposition home or self-care (01) | DRG 264 ==
LOC: JER 02:11 → JERBED 06:05 → J4W 10:06 → J6S 05-13 15:58
PROVIDERS: ADMIT Internal Medicine; ATTEND Internal Medicine
PROC: 30233N1 Transfusion of Nonautologous Red Blood Cells into Peripheral Vein, Percutaneous Approach (ICD-10-PCS; principal; 2024-05-12)
PROC: 0JH63XZ Insertion of Tunneled Vascular Access Device into Chest Subcutaneous Tissue and Fascia, Percutaneous Approach (ICD-10-PCS; 2024-05-15)
PROC: 05HM33Z Insertion of Infusion Device into Right Internal Jugular Vein, Percutaneous Approach (ICD-10-PCS; 2024-05-15)
PROC: B513ZZA Fluoroscopy of Right Jugular Veins, Guidance (ICD-10-PCS; 2024-05-15)
PROC: 5A1D70Z Performance of Urinary Filtration, Intermittent, Less than 6 Hours Per Day (ICD-10-PCS; 2024-05-16)
PROC: 5A1D70Z Performance of Urinary Filtration, Intermittent, Less than 6 Hours Per Day (ICD-10-PCS; 2024-05-17)
PROC: 031809D Bypass Left Brachial Artery to Upper Arm Vein with Autologous Venous Tissue, Open Approach (ICD-10-PCS; 2024-05-19)
PROC: 5A1D70Z Performance of Urinary Filtration, Intermittent, Less than 6 Hours Per Day (ICD-10-PCS; 2024-05-22)
PROC: 5A1D70Z Performance of Urinary Filtration, Intermittent, Less than 6 Hours Per Day (ICD-10-PCS; 2024-05-24)
PROC: 5A1D70Z Performance of Urinary Filtration, Intermittent, Less than 6 Hours Per Day (ICD-10-PCS; 2024-05-26)
PROC: 5A1D70Z Performance of Urinary Filtration, Intermittent, Less than 6 Hours Per Day (ICD-10-PCS; 2024-05-29)
PROC: 5A1D70Z Performance of Urinary Filtration, Intermittent, Less than 6 Hours Per Day (ICD-10-PCS; 2024-05-31)
DX: I13.2 Hypertensive heart and chronic kidney disease with heart failure and with stage 5 chronic kidney disease, or end stage renal disease (principal); I50.43 Acute on chronic combined systolic (congestive) and diastolic (congestive) heart failure; N18.6 End stage renal disease; E43 Unspecified severe protein-calorie malnutrition; G82.20 Paraplegia, unspecified; R64 Cachexia; Z68.1 Body mass index [BMI] 19.9 or less, adult; I31.39 Other pericardial effusion (noninflammatory); E87.20 Acidosis, unspecified; N39.0 Urinary tract infection, site not specified; B95.2 Enterococcus as the cause of diseases classified elsewhere; K52.9 Noninfective gastroenteritis and colitis, unspecified; E87.5 Hyperkalemia; D63.1 Anemia in chronic kidney disease; E11.22 Type 2 diabetes mellitus with diabetic chronic kidney disease; I27.20 Pulmonary hypertension, unspecified; H54.8 Legal blindness, as defined in USA; I25.10 Atherosclerotic heart disease of native coronary artery without angina pectoris; E83.51 Hypocalcemia; E83.39 Other disorders of phosphorus metabolism; Z95.5 Presence of coronary angioplasty implant and graft; Z99.2 Dependence on renal dialysis; Z74.01 Bed confinement status
CPT/HCPCS: 36415; 36430; 71045-TC-FY; 74176-TC; 76000-TC-FY; 80048; 80053; 81003; 82652; 82728; 82962; 83540; 83550; 83605; 83690; 83735; 83970; 84100; 84132; 84466; 85025; 85027; 85045; 85610; 86704; 86850; 86900; 86901; 86922; 87040; 87086; 87186; 87340; 87517; 87522; 93005; 93010; 93306-TC; 93971-TC; 93986; 94660; 94760; 97161-GP; 99285-25; C1750; J0131; J1644; J1756; P9038; P9058; Q5106

== ENCOUNTER 2024-10-29 04:16 | Day surgery (SDC) | payer OTHER ==
[2024-10-22 10:39] VITALS: BMI 13.6
[2024-10-29] MEDS ORDERED: ROPIVACAINE HCL 0.5% 30ML VIAL ONE (09:14)
[2024-10-29] MEDS ORDERED: HEPARIN NA (PORCINE) 5,000 UNITS/ML 1ML VIAL ONE (09:26)
[2024-10-29] MEDS ORDERED: LIDOCAINE HCL 1%, 10 MG/ML (20ML VIAL) ONE (09:26)
[2024-10-29] MEDS ORDERED: PAPAVERINE HCL 30 MG/1 ML 10 ML VIAL NR ONE (09:26)
[2024-10-29] MEDS ORDERED: MIDAZOLAM HCL 2 MG/2 ML SINGLE DOSE VIAL ONE (09:30)
[2024-10-29] MEDS ORDERED: ONDANSETRON 4 MG/2 ML VIAL ONE (10:02)
[2024-10-29] MEDS: ceFAZolin SODIUM 1 GM VIAL IVPB ONE (10:09)
[2024-10-29] MEDS ORDERED: ceFAZolin SODIUM 1 GM VIAL ONE (10:11)
[2024-10-29] MEDS: LIDOCAINE HCL 1%, 10 MG/ML (20ML VIAL) INF ONE (10:23)
[2024-10-29] MEDS ORDERED: ONDANSETRON 4 MG/2 ML VIAL IVPUSH PRN (11:54)
[2024-10-29 13:19] VITALS: RESP 16
[2024-10-29 14:21] VITALS: BP 180/70; PULSE 84; TEMP 97.2
== END 2024-10-29 15:10 | disposition home or self-care (01) ==
LOC: JASU-SURG 04:16
PROVIDERS: ATTEND Surgery
PROC: 03180ZD Bypass Left Brachial Artery to Upper Arm Vein, Open Approach (ICD-10-PCS; principal; 2024-10-29 10:00)
DX: I13.2 Hypertensive heart and chronic kidney disease with heart failure and with stage 5 chronic kidney disease, or end stage renal disease (principal); E11.22 Type 2 diabetes mellitus with diabetic chronic kidney disease; N18.6 End stage renal disease
CPT/HCPCS: 94760; J1644

== ENCOUNTER 2025-01-14 05:28 | Day surgery (SDC) | payer OTHER ==
[2025-01-09 12:09] VITALS: BMI 13.6
[2025-01-14] MEDS: TETRACAINE 0.5% OPHTH SOLN 2 ML BOTTLE OD ONE
[~2025-01-14 05:28] MED LIST: ACETAMINOPHEN 325 MG TABLET (FP) PO PRN; OFLOXACIN 0.3% OPHTHALMIC SOLUTION 5 ML BOTTLE OP SCH
[2025-01-14] MEDS ORDERED: LIDOCAINE HCL/PF 2% SDV 5ML VIAL ONE (07:45)
[2025-01-14] MEDS ORDERED: LIDOCAINE HCL/PF 1% SDV 5ML VIAL ONE (07:45)
[2025-01-14] MEDS ORDERED: BUPIVACAINE HCL/PF 0.75% 10 ML VIAL ONE (07:45)
[2025-01-14] MEDS ORDERED: TRYPAN BLUE 0.5 ML DISP.SYRIN ONE (07:45)
[2025-01-14] MEDS ORDERED: EPINEPHrine 1:1000 P/F - 1 MG/ML AMP ONE (07:45)
[2025-01-14] MEDS ORDERED: POVIDONE-IODINE 5% OPHTHALMIC PREP 30 ML SOLUTION ONE (07:45)
[2025-01-14] MEDS ORDERED: PHENYLEPHRINE 2.5% OPTHALMIC DROP 2ML BOTTLE ONE (08:45)
[2025-01-14] MEDS ORDERED: KETOROLAC TROMETHAMINE 0.5% EYE DROP 1 DROP DROPS ONE (08:45)
[2025-01-14] MEDS ORDERED: TROPICAMIDE 1% OPHTH SOLN 15 ML BOTTLE ONE (08:46)
[2025-01-14] MEDS ORDERED: OFLOXACIN 0.3% OPHTHALMIC SOLUTION 5 ML BOTTLE ONE (08:46)
[2025-01-14] MEDS ORDERED: CYCLOPENTOLATE HCL 1% OPHTH SOLN 2 ML BOTTLE ONE (08:46)
[2025-01-14] MEDS: TROPICAMIDE 1% OPHTH SOLN 15 ML BOTTLE OP SCH (09:04)
[2025-01-14] MEDS: CYCLOPENTOLATE HCL 1% OPHTH SOLN 2 ML BOTTLE OP SCH (09:04)
[2025-01-14] MEDS: KETOROLAC TROMETHAMINE 0.5% EYE DROP 1 DROP DROPS OP SCH (09:04)
[2025-01-14] MEDS: OFLOXACIN 0.3% OPHTHALMIC SOLUTION 5 ML BOTTLE OP SCH (09:05)
[2025-01-14] MEDS: PHENYLEPHRINE 2.5% OPHTH SOLN 15 ML BOTTLE OP SCH (09:05)
[2025-01-14] MEDS ORDERED: PROPOFOL 20 ML ONE (12:29)
[2025-01-14] MEDS: BUPIVACAINE HCL/PF 0.75% 10 ML VIAL RB ONE (12:43)
[2025-01-14] MEDS: LIDOCAINE HCL/PF 2% SDV 5ML VIAL INF ONE (12:43)
[2025-01-14] MEDS: POVIDONE-IODINE 5% OPHTHALMIC PREP 30 ML SOLUTION OD ONE ×2 (12:45)
[2025-01-14] MEDS: BSS (NA/CA/MG/K) BALANCED SALT SOLUTION OPHTH SOLN 15 ML BOTTLE OD ONE (12:51)
[2025-01-14] MEDS: LIDOCAINE HCL 1% PRESERVATIVE FREE - 30ML VIAL IO ONE (12:51)
[2025-01-14] MEDS: TRYPAN BLUE 0.5 ML DISP.SYRIN IO ONE (12:52)
[2025-01-14] MEDS: CHONDROITIN SU A/HYALUR SOD 1 KIT IO ONE ×2 (12:53)
[2025-01-14] MEDS: EPINEPHrine 1:1000 P/F - 1 MG/ML AMP IO ONE (13:03)
[2025-01-14 14:54] VITALS: RESP 16
[2025-01-14 15:19] VITALS: BP 158/70; PULSE 71; TEMP 97.5
== END 2025-01-14 15:55 | disposition home or self-care (01) ==
LOC: JASU-SURG 05:28
PROVIDERS: ATTEND Ophthalmology
PROC: 08RJ3JZ Replacement of Right Lens with Synthetic Substitute, Percutaneous Approach (ICD-10-PCS; principal; 2025-01-14 11:00)
DX: H25.091 Other age-related incipient cataract, right eye (principal)
CPT/HCPCS: 36415; 84132; V2632